=== PATIENT | female | born 1940 | race Caucasian/White ===

== ENCOUNTER 2024-02-24 19:27 | Emergency (ER) | payer OTHER ==
--- NOTE | 2024-02-24 19:58 | RAD REPORT ---
EXAM DESCRIPTION: CT - CTHCSPWOC - 02/24/2024 7:45 pm CLINICAL HISTORY: Trauma, head and neck injury. fall, head injury COMPARISON: No comparisons TECHNIQUE: Axial 5 mm thick images of the head were obtained. Axial 2 mm thick images of the cervical spine were obtained with sagittal and coronal reconstruction images generated and reviewed. All CT scans are performed using dose optimization technique as appropriate and may include automated exposure control or mA/KV adjustment according to patient size. FINDINGS: CT HEAD WITHOUT CONTRAST: No acute hemorrhage, hydrocephalus or extra-axial collection is identified.No areas of brain edema or midline shift. Age advanced cerebral atrophy. Moderate chronic small vessel ischemic changes. The paranasal sinuses and mastoids are clear.The calvarium is intact. CT CERVICAL SPINE WITHOUT CONTRAST: No fracture or subluxation.No prevertebral soft tissues swelling is identified. Reversal of the mariela l cervical lordosis. Anterolisthesis of C3 on C4, C4 on C5 and trace retrolisthesis C5 on C6 likely r elated to underlying degenerative changes. Varying degrees of neural foraminal narrowing noted. IMPRESSION: No acute intracranial or cervical spine findings.
--- NOTE | 2024-02-24 20:38 | RAD REPORT ---
EXAM DESCRIPTION: RAD - Femur Right - 02/24/2024 8:29 pm CLINICAL HISTORY: fall;Pain COMPARISON: No comparisons FINDINGS/IMPRESSION: Right hip arthroplasty. No right femur fracture identified. No hardware complic ations. .
--- NOTE | 2024-02-24 20:39 | RAD REPORT ---
EXAM DESCRIPTION: RAD - Pelvis - 02/24/2024 8:29 pm CLINICAL HISTORY: fall COMPARISON: No comparisons FINDINGS/IMPRESSION: No acute fracture. No malalignment. Intact right hip arthroplasty. Mild left ac etabular degenerative changes.
--- NOTE | 2024-02-24 20:54 | EDPHYS ---
Physician Documentation [facility] Name: Libby Bosch Age: 84 yrs Sex: Female : 1940 Arrival Date: 02/24/2024 Time: 19:27 Bed 5 Private MD: ED Physician Ander Meadows HPI: 02/23 19:56 This 84 yrs old Female presents to ER via Unassigned with complaints of fall. rn 19:56 Details of fall: The patient fell from an upright position, while walking. Onset: The rn symptoms/episode began/occurred just prior to arrival. Associated injuries: The patient sustained injury to the head. Severity of symptoms: At their worst the symptoms were mild, in the emergency department the symptoms have improved. The patient has not experienced similar symptoms in the past. Patient reports fall from standing, thinks tripped, remembers all events. No blood thinners. Reports hit back of head and had a headache initially but no longer hurts. Also reported pain to right hip initially, now pain resolved. Has no complaints currently.. Historical: - Allergies: 19:35 Morphine; cp4 19:35 PENICILLINS; cp4 - Immunization history: Last tetanus immunization: - up to date. - Infectious Disease History:: Denies. - Family history:: not pertinent. - Social history:: Smoking status: Patient denies any tobacco usage or history of. - Hospitalizations: : No recent hospitalization is reported. ROS: 19:56 Constitutional: Negative for fever, chills, and weight loss, Neck: Negative for injury, rn pain, and swelling, Cardiovascular: Negative for chest pain, palpitations, and edema, Respiratory: Negative for shortness of breath, cough, wheezing, and pleuritic chest pain, Abdomen/GI: Negative for abdominal pain, nausea, vomiting, diarrhea, and constipation, Back: Negative for injury and pain, : Negative for injury, bleeding, discharge, and swelling, MS/Extremity: Negative for injury and deformity, Skin: Negative for injury, rash, and discoloration, Neuro: Negative for headache, weakness, numbness, tingling, and seizure, Exam: 19:56 Constitutional: This is a well developed, well nourished patient who is awake, alert, rn and in no acute distress. Head/Face: Normocephalic, atraumatic. Neck: No midline cervical tenderness Chest/axilla: Normal chest wall appearance and motion. Nontender with no deformity. Cardiovascular: Regular rate and rhythm. No pulse deficits. Respiratory: No increased work of breathing, no retractions or nasal flaring. Abdomen/GI: Soft, non-tender Back: No spinal tenderness MS/ Extremity: Pulses equal, no cyanosis. Neurovascular intact. Full, normal range of motion. Equal circumference. Neuro: Awake and alert, GCS 15, oriented to person, place, and situation. Cranial nerves II-XII grossly intact. Motor strength 5/5 in all extremities. Sensory grossly intact. Vital Signs: 19:35 BP 131 / 56; Pulse 85; Resp 18; Temp 98.2; Pulse Ox 100% ; Pain 7/10; cp4 22:03 BP 133 / 61; Pulse 81; Resp 18; Temp 98.2; Pulse Ox 100% ; cp4 19:35 Pain Scale: Adult cp4 Kevil Coma Score: 19:35 Eye Response: spontaneous(4). Motor Response: obeys commands(6). Verbal Response: cp4 oriented(5). Total: 15. Trauma Score (Adult): 19:35 Eye Response: spontaneous(1); Verbal Response: oriented(1); Motor Response: obeys cp4 commands(2); Systolic BP: > 89 mm Hg(4); Respiratory Rate: 10 to 29 per min(4); Alycia Score: 15; Trauma Score: 12 MDM: 19:32 Patient medically screened. rn 20:53 Differential diagnosis: closed head injury, contusion, fracture, multiple trauma, rn sprain, strain. Data reviewed: vital signs, nurses notes, radiologic studies, CT scan, and as a result, I will discharge patient. Counseling: I had a detailed discussion with the patient and/or guardian regarding the historical points, exam findings, and any diagnostic results supporting the discharge/admit diagnosis, radiology results, the need for outpatient follow up, to return to the emergency department if symptoms worsen or persist or if there are any questions or concerns that arise at home. Special discussion: Based on the patient's history, exam and DX evaluation, there is no indication for emergent intervention or inpatient TX. It is understood by the patient/guardian that if the SXs persist or worsen they need to return immediately for re-evaluation. I discussed with the patient/guardian in detail that at this point there is no indication for admission to the hospital. It is understood, however, that if the symptoms persist or worsen the patient needs to return immediately for re-evaluation. 02/23 19:33 Order name: CT Head C Spine; Complete Time: 20:53 rn 02/23 19:33 Order name: XRAY Femur RIGHT; Complete Time: 20:53 rn 02/23 19:33 Order name: XRAY Pelvis; Complete Time: 20:53 rn Administered Medications: No medications were administered Disposition Summary: 02/24/24 20:54 Discharge Ordered Notes: Location: Home rn Problem: new rn Symptoms: have improved rn Condition: Stable rn Diagnosis - Fall on same level, unspecified rn - Unspecified injury of head, initial encounter rn Followup: rn - With: Private Physician - When: As needed - Reason: Recheck today's complaints, Re-evaluation by your physician Discharge Instructions: - Discharge Summary Sheet rn - Head Injury, Adult rn - Fall Prevention in the Home, Adult rn Forms: - Medication Reconciliation Form rn - Antibiotic pattern clerk - Prescription Opioid Use rn - Patient Portal Instructions rn - Leadership Thank You Letter rn Signatures: Dispatcher [employer] EDMS Ander Meadows MD MD rn Potter, Christina cp4 Corrections: (The following items were deleted from the chart) 19:33 19:33 Femur Right+RAD.RAD.BRZ ordered. EDMS EDMS 19:33 19:33 Pelvis+RAD.RAD.BRZ ordered. EDMS EDMS
--- NOTE | 2024-02-24 22:11 | ER ---
Nurse's Notes [facility] Name: Libby Bosch Age: 84 yrs Sex: Female : 1940 Arrival Date: 02/24/2024 Time: 19:27 Bed 5 Private MD: Diagnosis: Fall on same level, unspecified;Unspecified injury of head, initial encounter Presentation: 02/23 19:35 Chief complaint: EMS states: fall from standing. Reports head and right hip pain. cp4 19:35 Acuity: JENNIFER 4 cp4 19:35 Care prior to arrival: None. Mechanism of Injury: Fall from standing position. Trauma cp4 event details: Injury occurred in the [facility]. 19:35 Method Of Arrival: EMS: [facility] cp4 21:19 Coronavirus screen: Client denies travel out of the [place] in the last 14 days. At this cp4 time, the client does not indicate any symptoms associated with coronavirus-19. Ebola Screen: Patient negative for fever greater than or equal to 101.5 degrees Fahrenheit, and additional compatible Ebola Virus Disease symptoms Patient denies exposure to infectious person. Patient denies travel to an Ebola-affected area in the 21 days before illness onset. No symptoms or risks identified at this time. Initial Sepsis Screen: Does the patient meet any 2 criteria? No. Patient's initial sepsis screen is negative. Does the patient have a suspected source of infection? No. Patient's initial sepsis screen is negative. Risk Assessment: Do you want to hurt yourself or someone else? Patient reports no desire to harm self or others. Onset of symptoms was February 24, 2024. Trauma Activation: Not Applicable Physician: ED Physician; Name: ; Notified At: ; Arrived At: Physician: General Surgeon; Name: ; Notified At: ; Arrived At: Physician: Radiology; Name: ; Notified At: ; Arrived At: Physician: Respiratory; Name: ; Notified At: ; Arrived At: Physician: Lab; Name: ; Notified At: ; Arrived At: Historical: - Allergies: 19:35 Morphine; cp4 19:35 PENICILLINS; cp4 - Immunization history: Last tetanus immunization: - up to date. - Infectious Disease History:: Denies. - Family history:: not pertinent. - Social history:: Smoking status: Patient denies any tobacco usage or history of. - Hospitalizations: : No recent hospitalization is reported. Screenin:35 Abuse screen: Denies threats or abuse. Nutritional screening: No deficits noted. cp4 Tuberculosis screening: No symptoms or risk factors identified. 19:35 Clinical [place] Withdrawal Assessment for Alcohol, revised (CIWA-Ar):. [facility] ED cp4 Fall Risk Assessment (Adult) History of falling in the last 3 months, including since admission Yes- single mechanical fall (1 pt) Confusion or Disorientation No (0 pts) Intoxicated or Sedated No (0 pts) Impaired Gait Yes (1 pt) Mobility Assist Device Used Yes (1 pt) Altered Elimination No (0 pt) Score/Fall Risk Level 3 or more points = High Risk Oriented to surroundings, Maintained a safe environment, Assessed \T\ reinforced patient's understanding of fall precautions, Hourly rounding (assess needs \T\ fall precautionary measures) done, Used ambulatory aids as needed (educated on \T\ assisted with). Primary Survey: 19:35 NO uncontrolled hemorrhage observed. A: The client is awake and alert. The airway is cp4 patent. Breathing/Chest: Spontaneous respiratory effort, equal unlabored respirations, breath sounds clear bilaterally, regular pattern, symmetrical chest rise and fall. Circulation: No external hemorrhage present. Regular and strong central pulse, skin warm/dry/normal color. Disability Pupils are equal, round, reactive to light and accommodation. Exposure/Environment: A warming method has been applied: A warm blanket has been provided to the patient. Reassessment Alertness and Airway: Awake and alert. The airway is patent. Breathing: Spontaneous respiratory effort, equal unlabored respirations, breath sounds clear bilaterally, regular pattern with symmetrical chest rise and fall. Circulation: No external hemorrhage noted. Regular and strong central pulse, skin warm/dry/normal color. Disability: Pupils Pupils are equal, round, reactive to light and accomodation. Alert. Assessment: 19:35 General: Appears in no apparent distress. comfortable, Behavior is calm, cooperative, cp4 appropriate for age. Pain: Complains of pain in head and right hip Pain currently is 7 out of 10 on a pain scale. Neuro: Level of Consciousness is awake, alert, obeys commands, Oriented to person. EENT: No signs and/or symptoms were reported regarding the EENT system. Cardiovascular: No deficits noted. Respiratory: Airway is patent Respiratory effort is even, unlabored. GI: No signs and/or symptoms were reported involving the gastrointestinal system. : No signs and/or symptoms were reported regarding the genitourinary system. Derm: No signs and/or symptoms reported regarding the dermatologic system. Musculoskeletal: No signs and/or symptoms reported regarding the musculoskeletal system. Injury Description: pain in head and right hip. 21:20 Reassessment: No changes from previously documented assessment. cp4 21:25 Reassessment: Called to give report to nurse. Nurse busy and will call back. cp4 Vital Signs: 19:35 BP 131 / 56; Pulse 85; Resp 18; Temp 98.2; Pulse Ox 100% ; Pain 7/10; cp4 22:03 BP 133 / 61; Pulse 81; Resp 18; Temp 98.2; Pulse Ox 100% ; cp4 19:35 Pain Scale: Adult cp4 Alycia Coma Score: 19:35 Eye Response: spontaneous(4). Motor Response: obeys commands(6). Verbal Response: cp4 oriented(5). Total: 15. Trauma Score (Adult): 19:35 Eye Response: spontaneous(1); Verbal Response: oriented(1); Motor Response: obeys cp4 commands(2); Systolic BP: > 89 mm Hg(4); Respiratory Rate: 10 to 29 per min(4); Alycia Score: 15; Trauma Score: 12 ED Course: 19:32 Patient arrived in ED. rn 19:32 Ander Meadows MD is Attending Physician. rn 19:35 Bed in low position. Call light in reach. Side rails up X2. cp4 19:35 Arm band placed on right wrist. Patient placed in an exam room, on a stretcher. cp4 19:35 Provided Education on: fall. cp4 19:35 Patient maintains SpO2 saturation greater than 95% on room air. cp4 19:35 No provider procedures requiring assistance completed. Patient did not have IV access cp4 during this emergency room visit. 19:47 CT Head C Spine In Process Unspecified. EDMS 20:01 Donna Jeronimo is Primary Nurse. cp4 20:31 XRAY Femur RIGHT In Process Unspecified. EDMS 20:31 XRAY Pelvis In Process Unspecified. EDMS 21:17 Triage completed. cp4 22:10 Thermoregulation: warm blanket given to patient. cp4 Administered Medications: No medications were administered Medication: 19:35 VIS not applicable for this client. cp4 Intake: 19:35 PO: 0ml; Total: 0ml. cp4 Outcome: 20:54 Discharge ordered by . rn 22:04 Discharged to longterm. Report called to nurse cp4 22:04 Condition: stable 22:04 Discharge instructions given to EMS, Instructed on discharge instructions, follow up and referral plans. Demonstrated understanding of instructions, follow-up care, 22:10 Patient's length of stay was not longer than 2 hours. cp4 22:11 Patient left the ED. cp4 Signatures: Dispatcher [employer] EDMS Ander Meadows MD MD rn Potter, Christina cpDerrick
[2024-02-24 22:30] VITALS: TEMP 98.2; O2SAT 100
[2024-02-24 22:32] VITALS: BP 133/61
== END 2024-02-24 22:11 | disposition home or self-care (01) ==
LOC: ER 19:27
DX: S09.90XA Unspecified injury of head, initial encounter (principal); W18.30XA Fall on same level, unspecified, initial encounter; M25.551 Pain in right hip
CPT/HCPCS: 70450; 72125; 72170; 99283

== ENCOUNTER 2024-04-24 16:20 | Inpatient (IN) | payer OTHER ==
--- NOTE | 2024-04-24 17:20 | RAD REPORT ---
EXAMINATION: ONE VIEW CHEST XR CLINICAL INDICATION: FEVER TECHNIQUE: Frontal chest projection is submitted. Examination is limited by patient positioning and t echnique. COMPARISON: No prior exam. FINDINGS: [place] 2-3 cm density is seen in the right midlung. The lungs are otherwise grossly clear. The heart is normal in size. No displaced fractures identified. IMPRESSION: 2-3 cm oblong density in the right midlung. CT chest would be recommended for further evaluation.
[2024-04-24] MEDS ORDERED: NA CHLORIDE 0.9% 100 ML ONE (18:29)
[2024-04-24] MEDS ORDERED: NA CHLORIDE 0.9% 1,000 ML ONE ×2 (18:29→22:48)
[2024-04-24] MEDS ORDERED: CEFEPIME 2 GM VIAL ONE (18:29)
[2024-04-24 18:32] LABS: Absolute Basophils 0.1 K/uL (0-0.5); Absolute Lymphocytes (CBC) 0.5 K/uL (0.7-4.9); Absolute Monocytes 1.1 K/uL (0.1-1.3); Absolute Neutrophil 17.2 K/uL (1.8-8.0); Basophils % 0.4 % (0-1.3); Eosinophils % 0.1 % (0-4.4); Hematocrit 29.8 % (36.0-45.0); Lymphocytes % 2.8 % (15.3-44.8); MCH 28.8 pg (27.0-35.0); MCHC 33.6 g/dL (32.0-36.0); MCV 85.7 fL (80-100); MPV 7.3 fL (7.6-11.3); Monocytes % 5.9 % (3.3-12.3); Neutrophils % 90.8 % (41.7-73.7); Platelets 336 thou/uL (152-406); RBC Red Blood Cell Count 3.48 M/uL (3.86-4.86); Red Cell Distribution Width 15.1 % (12.1-15.2)
[2024-04-24 18:41] LABS: PT Prothrombin Time 11.7 SECONDS (9.4-12.5); PTT, Activated Partial Thromb 29.7 SECONDS (24.3-36.9); Protime INR 1.05
[2024-04-24 18:48] LABS: Albumin 3.1 g/dL (3.4-5.0); Albumin/Globulin Ratio 0.8 (1.1-1.8); Anion Gap 10.6 mEq/L (5.0-15.0); Bilirubin Total 0.5 mg/dL (0.2-1.0); Globulin 3.9 g/dL (2.3-3.5); Potassium 3.6 mEq/L (3.5-5.1)
[2024-04-24 19:17] LABS: Specific Gravity 1.013 (1.005-1.030); Sqamous Epithelial <5 /HPF (None Seen); Urine Bacteria <20 /HPF (<20); Urine Bilirubin NEGATIVE (Negative); Urine Blood 1+ (Negative); Urine Clarity Extremely Turbid (Clear); Urine Color Yellow (Yellow); Urine Crystals Unidentified Few /HPF (None Seen); Urine Culture Reflex Order REFLEXED; Urine Glucose NEGATIVE (Negative); Urine Ketones NEGATIVE (Negative); Urine Microscopic Reflex YN ORDER UMIC; Urine Nitrite 2+ (Negative); Urine Protein 1+ (Negative); Urine Urobilinogen Normal (Normal); Urine WBC >50 /HPF (<5); Urine WBC Clump Occasional /HPF (None Seen); Urine Yeast (Budding) Few /HPF (None Seen); Urine pH 5.5 (5.0-7.0)
--- NOTE | 2024-04-24 19:35 | RAD REPORT ---
EXAM: CT brain without contrast HISTORY: HEADACHE COMPARISON: None TECHNIQUE: Multiple contiguous axial images were obtained and a CT of the brain without contrast. Sag ittal and coronal reformats were performed. One or more of the following dose reduction techniques were used: Automated exposure control, adjust ment of the mA and/or kV according to patient size, and/or iterative reconstruction. FINDINGS: Examination is limited due to motion artifact. No evidence of hydrocephalus, intracranial hemorrhage, or extra-axial fluid collection. Moderate brain atrophy with moderate periventricular and deep white matter chronic microvascular isc hemic changes present. No evidence of midline shift or areas of brain edema. The calvarium is intact. The visualized paranasal sinuses and mastoid air cells are essentially clear . IMPRESSION: No evidence of acute intracranial abnormality. Motion degradation is present, limiting quality of the study.
--- NOTE | 2024-04-24 19:40 | RAD REPORT ---
EXAM: CT CHEST, ABDOMEN AND PELVIS WITH CONTRAST CLINICAL INDICATION: abd pain, abnormal cxr TECHNIQUE: CT chest, abdomen and pelvis was performed, following the administration of contrast, as p er department protocol. Axial, sagittal and coronal reconstructions were obtained. One or more of the following dose reduction techniques were used: Automated exposure control, adjustment of the mA a nd/or kV according to patient size, and/or iterative reconstruction. Unless otherwise specified, incidental findings do not require dedicated imaging follow-up. COMPARISON: No prior exam. FINDINGS: LUNGS: Mild scarring is present in the right upper lobe posteriorly. No focal consolidation evident. Small hiatal hernia. PLEURA: Small amount of fluid is present loculated in the right fissure. MEDIASTINUM AND LYMPH NODES: No mediastinal mass or fluid collection. Normal size mediastinal, hilar, and axillary lymph nodes. OSSEOUS STRUCTURES AND CHEST WALL: Intact. LIVER: Normal in size and contour. No focal lesion or biliary dilatation. Grossly unremarkable gallbl adder. PANCREAS: No mass, ductal dilation, or jane-pancreatic fluid. SPLEEN: Normal size. No focal lesion. ADRENALS: Normal; no mass. KIDNEYS: Normal size and contour. No hydronephrosis. Enhancement of the uroepithelium bilaterally not ed likely indicating ascending urinary tract infection. URINARY BLADDER: Normal contour. GASTROINTESTINAL TRACT: No bowel obstruction, free air, significant free fluid or abscess. There is moderate diverticulosis coli of the sigmoid colon without diverticulitis. APPENDIX: Normal appendix. LYMPH NODES: No lymphadenopathy. MUSCULOSKELETAL: Right total hip arthroplasty. OTHER: IMPRESSION: Enhancing uroepithelium is noted involving both ureters and both renal pelvis compatible with ascendi ng urinary tract infection. Recent chest radiograph finding is likely a small amount of loculated right pleural fluid in the fiss ure.
[2024-04-24 19:49] LABS: Blood Morphology Comment NOT SEEN (NOT SEEN); Platelet Estimate ADEQ; White Blood Cell Scan OK (OK)
--- NOTE | 2024-04-24 19:56 | EDPHYS ---
Physician Documentation [facility] Name: Libby Bosch Age: 84 yrs Sex: Female : 1940 Arrival Date: 04/24/2024 Time: 16:20 Bed 20 Private MD: ED Physician Umang Adorno HPI: 04/24 18:25 This 84 yrs old Female presents to ER via EMS with complaints of Abdominal Pain, Fever, rt Headache. 18:25 History limited due to patient with advanced dementia, history was obtained per EMS. rt Patient presents to the ED with headache, abdominal pain starting today. The patient reportedly had a fever up to 103. EMS noted that she was tachycardic to the 110s. Denies other acute complaints at this time, symptoms are moderate in severity, no other aggravating or alleviating factors.. Historical: - Allergies: 17:06 Morphine; ss 17:06 PENICILLINS; ss - PMHx: 17:06 Alzheimer's disease; GERD; Hypertensive disorder; ss - Immunization history:: Adult Immunizations up to date. - Infectious Disease History:: Denies. - Family history:: not pertinent. - Social history:: Smoking status: Patient denies any tobacco usage or history of. ROS: 18:25 Unable to obtain ROS due to baseline dementia, rt Exam: 18:25 Constitutional: This is a well developed, well nourished patient who is awake, alert, rt and in no acute distress. Head/Face: Normocephalic, atraumatic. Chest/axilla: Normal chest wall appearance and motion. Nontender with no deformity. No lesions are appreciated. Cardiovascular: Regular rate and rhythm with a normal S1 and S2. No gallops, murmurs, or rubs. Normal PMI, no JVD. No pulse deficits. Respiratory: Lungs have equal breath sounds bilaterally, clear to auscultation and percussion. No rales, rhonchi or wheezes noted. No increased work of breathing, no retractions or nasal flaring. Abdomen/GI: Soft, non-tender, with normal bowel sounds. No distension or tympany. No guarding or rebound. No evidence of tenderness throughout. Skin: Warm, dry with normal turgor. Normal color with no rashes, no lesions, and no evidence of cellulitis. MS/ Extremity: Pulses equal, no cyanosis. Neurovascular intact. Full, normal range of motion. 18:25 ECG was reviewed by the Attending Physician. Vital Signs: 18:00 BP 129 / 70; Pulse 93; Resp 18; Pulse Ox 97% ; me1 19:00 BP 127 / 90; Pulse 103; Resp 19; Pulse Ox 98% ; me1 20:06 Temp 102.6(A); me1 20:06 BP 148 / 90; Pulse 119; Resp 24; Pulse Ox 92% ; me1 21:00 BP 123 / 83; Pulse 123; Resp 24; Pulse Ox 93% ; me1 22:00 BP 117 / 54; Pulse 95; Resp 13; Temp 102.8; Pulse Ox 91% ; me1 MDM: 16:37 Medical Screening Exam initiated rt 19:56 Differential diagnosis: UTI, diverticulitis, cranial hemorrhage, electrolyte rt disturbance, sepsis. Data reviewed: vital signs, nurses notes, lab test result(s), EKG, radiologic studies. Consideration of Admission/Observation Patient was admitted/placed on observation. Management of patient was discussed with the following: Hospitalist: Agrees to admit. I considered the following discharge prescriptions or medication management in the emergency department Medications were administered in the Emergency Department. See MAR. Independent interpretation of the following test(s) in the Emergency Department CT Scan: My interpretation is No bowel obstructions and interpretation of CT scan images. Care significantly affected by the following chronic conditions: Hypertension. Counseling: I had a detailed discussion with the patient and/or guardian regarding the historical points, exam findings, and any diagnostic results supporting the discharge/admit diagnosis, lab results, radiology results, the need for further work-up and treatment in the hospital. Response to treatment: the patient's symptoms have mildly improved after treatment. 04/24 16:38 Order name: Blood Culture Adult (2) rt 04/24 16:38 Order name: CBC with Diff rt 04/24 16:38 Order name: CMP; Complete Time: 18:51 rt 04/24 16:38 Order name: Lactate w/ 2H reflex if indic.; Complete Time: 18:51 rt 04/24 16:38 Order name: Protime (+inr); Complete Time: 18:51 rt 04/24 16:38 Order name: Ptt, Activated; Complete Time: 18:51 rt 04/24 16:38 Order name: Urinalysis w/ reflexes; Complete Time: 19:18 rt 04/24 19:20 Order name: Urine Culture EDMS 04/24 19:49 Order name: CBC Smear Scan EDMS 04/24 20:29 Order name: Ghost Lactate-NO COLLECT Timer EDMS 04/24 20:43 Order name: Urinalysis w/ reflexes EDMS 04/24 20:43 Order name: CBC with Automated Diff EDMS 04/24 20:43 Order name: CBC with Automated Diff EDMS 04/24 20:43 Order name: Comprehensive Metabolic Panel EDMS 04/24 20:43 Order name: Comprehensive Metabolic Panel EDMS 04/24 22:36 Order name: Lactate w/ 2H reflex if indic. me1 04/24 23:07 Order name: Lactate w/ 2H reflex if indic. EDMS 04/25 01:07 Order name: Ghost Lactate-NO COLLECT Timer EDMS 04/25 05:38 Order name: Lactate Sepsis 2 HR Follow-up EDMS 04/25 12:50 Order name: Gram Stain--Aerobic Bottle EDNJ 04/25 12:50 Order name: Gram Stain--Anaerobic Bottle EDMS 04/25 12:53 Order name: Gram Stain--Aerobic Bottle EDMS 04/25 12:53 Order name: Gram Stain--Anaerobic Bottle EDMS 04/24 16:38 Order name: Chest Single View XRAY; Complete Time: 18:51 rt 04/24 16:38 Order name: CT Head Brain wo Cont; Complete Time: 19:39 rt 04/24 18:52 Order name: CT Chest, Abdomen, Pelvis - W/Contrast; Complete Time: 19:41 rt 04/24 16:38 Order name: EKG; Complete Time: 16:39 rt 04/24 16:38 Order name: Accucheck; Complete Time: 22:48 rt 04/24 16:38 Order name: Cardiac monitoring; Complete Time: 18:24 rt 04/24 16:38 Order name: EKG - Nurse/Tech; Complete Time: 18:24 rt 04/24 16:38 Order name: IV Saline Lock - Large Bore; Complete Time: 17:58 rt 04/24 16:38 Order name: Labs collected and sent; Complete Time: 17:58 rt 04/24 16:38 Order name: O2 Per Protocol; Complete Time: 17:58 rt 04/24 16:38 Order name: O2 Sat Monitoring; Complete Time: 17:58 rt 04/24 16:38 Order name: Vital Signs; Complete Time: 17:59 rt EC:25 Rate is 94 beats/min. Rhythm is regular, Normal Sinus Rhythm with No ectopy. QRS [place] rt is Normal. RI interval is normal. QRS interval is normal. QT interval is normal. No Q waves. Clinical impression: NSR w/ Non-specific ST/T Changes. Administered Medications: 18:34 Drug: NS 0.9% IV 1000 ml IV at 1 bolus Per protocol; to be given as a bolus over 60 me1 minutes Route: IV; Rate: 1 bolus; Site: left antecubital; 20:00 Follow up: Response: No adverse reaction; IV Status: Completed infusion; IV Intake: me1 1000ml 18:34 Drug: Cefepime IVPB 2 grams IVPB at 200 ml/hr once over 30 mins; (mix in NS 100 mL) me1 Route: IVPB; Rate: 200 ml/hr; Infused Over: 30 mins; Site: left antecubital; 19:49 Follow up: Response: No adverse reaction; IV Status: Completed infusion; IV Intake: me1 100ml 20:10 Drug: Acetaminophen PO 1000 mg PO once Route: PO; me1 21:00 Follow up: Response: No adverse reaction; Temperature is unchanged me1 Disposition Summary: 04/24/24 19:56 Hospitalization Ordered Notes: Hospitalization Status: Inpatient Admission rt Provider: Christopher Shepherd rt Condition: Stable rt Problem: new rt Symptoms: are unchanged rt Bed/Room Type: Standard rt Location: Telemetry/MedSurg (Inpatient)(04/25/24 13:19) Room Assignment: [facility](04/25/24 13:19) Diagnosis - UTI/ Urinary tract infection, site not specified rt - Severe sepsis without septic shock rt Forms: - Medication Reconciliation Form rt - SBAR form rt - Leadership Thank You Letter rt Critical care time excluding procedures: 19:56 Critical care time: Bedside Care: 30 minutes, Consultation: 5 minutes. Total time: 35 rt minutes Signatures: Dispatcher [employer] Dilcia Rhodes RN RN ss Garcia, Cindy, RN RN Hellen Mueller Umang Adorno MD MD rt Joya Olivas RN RN me1 Corrections: (The following items were deleted from the chart) 16:39 16:39 BLOOD CULTURE*+BA.LAB.BRZ ordered. EDMS EDMS 16:39 16:39 CBC+H.LAB.BRZ ordered. EDMS EDMS 16:39 16:39 LACTATE+C.LAB.BRZ ordered. EDMS EDMS 16:39 16:39 PROTIME (+INR)+COAG.LAB.BRZ ordered. EDMS EDMS 16:39 16:39 PTT, ACTIVATED+COAG.LAB.BRZ ordered. EDMS EDMS 16:39 16:39 Urinalysis+U.LAB.BRZ ordered. EDMS EDMS 16:39 16:39 Abdomen Pelvis W Con+CT.RAD.BRZ ordered. EDMS EDMS 17:59 16:39 COMPREHENSIVE METABOLIC PANEL+C.LAB.BRZ ordered. EDMS EDMS 21:34 19:56 Telemetry/MedSurg (Inpatient) rt cg 21:34 19:56 rt cg 04/25 13:19 04/24 21:34 [facility] ER HOLD cg eb 04/25 13:19 04/24 21:34 ERHOLD- cg eb
--- NOTE | 2024-04-24 19:56 | ER ---
Nurse's Notes [facility] Name: Libby Bosch Age: 84 yrs Sex: Female : 1940 Arrival Date: 04/24/2024 Time: 16:20 Bed 20 Private MD: Diagnosis: UTI/ Urinary tract infection, site not specified;Severe sepsis without septic shock Presentation: 04/24 17:02 Chief complaint: EMS states: CROWDER, abd pain and fever that began today. TMAX 103.2. ss Tylenol given today \T\1400. Coronavirus screen: Client presents with at least one sign or symptom that may indicate coronavirus-19. Ebola Screen: Patient denies exposure to infectious person. Patient denies travel to an Ebola-affected area in the 21 days before illness onset. Initial Sepsis Screen: Does the patient have a suspected source of infection? No. Patient's initial sepsis screen is negative. Risk Assessment: Do you want to hurt yourself or someone else? Patient reports no desire to harm self or others. Onset of symptoms was April 24, 2024. 17:02 Method Of Arrival: EMS: [facility] ss 17:02 Acuity: JENNIFER 3 ss 22:25 Initial Sepsis Screen: Does the patient meet any 2 criteria? HR > 90 bpm. No. Patient's me1 initial sepsis screen is negative. Historical: - Allergies: 17:06 Morphine; ss 17:06 PENICILLINS; ss - PMHx: 17:06 Alzheimer's disease; GERD; Hypertensive disorder; ss - Immunization history:: Adult Immunizations up to date. - Infectious Disease History:: Denies. - Family history:: not pertinent. - Social history:: Smoking status: Patient denies any tobacco usage or history of. Screenin:[address] [facility] ED Fall Risk Assessment (Adult) History of falling in the last 3 months, me1 including since admission No falls in past 3 months (0 pts) Confusion or Disorientation No (0 pts) Intoxicated or Sedated No (0 pts) Impaired Gait Yes (1 pt) Mobility Assist Device Used Yes (1 pt) Altered Elimination Yes (1 pt) Score/Fall Risk Level 3 or more points = High Risk Maintained a safe environment, Hourly rounding (assess needs \T\ fall precautionary measures) done, Used ambulatory aids as needed (educated on \T\ assisted with). Abuse screen: Denies threats or abuse. Nutritional screening: No deficits noted. Tuberculosis screening: No symptoms or risk factors identified. Assessment: 17:00 General: Appears uncomfortable, ill, well groomed, well developed, well nourished, me1 Behavior is calm, cooperative, appropriate for age, Reports CROWDER, abd pain and fever that began today. Pain: Complains of pain in head and abdomen Pain does not radiate. Pain currently is 3 out of 10 on a pain scale. Quality of pain is described as aching, Pain began gradually, Is continuous. Neuro: Level of Consciousness is awake, alert, obeys commands, Oriented to person, place. Cardiovascular: Patient's skin is warm and dry. Respiratory: Airway is patent Respiratory effort is even, unlabored, Respiratory pattern is regular, symmetrical. GI: Abdomen is flat, Bowel sounds present X 4 quads. Abd is soft X 4 quads. : No signs and/or symptoms were reported regarding the genitourinary system. EENT: No signs and/or symptoms were reported regarding the EENT system. Derm: Skin is intact, is healthy with good turgor, Skin is pink, warm \T\ dry. Skin temperature is hot. Musculoskeletal: No signs and/or symptoms reported regarding the musculoskeletal system. 04/25 13:32 General: Report faxed, receipt confirmed by Roxanne.. me1 Vital Signs: 04/24 18:00 BP 129 / 70; Pulse 93; Resp 18; Pulse Ox 97% ; me1 19:00 BP 127 / 90; Pulse 103; Resp 19; Pulse Ox 98% ; me1 20:06 Temp 102.6(A); me1 20:06 BP 148 / 90; Pulse 119; Resp 24; Pulse Ox 92% ; me1 21:00 BP 123 / 83; Pulse 123; Resp 24; Pulse Ox 93% ; me1 22:00 BP 117 / 54; Pulse 95; Resp 13; Temp 102.8; Pulse Ox 91% ; me1 ED Course: 16:37 Patient arrived in ED. rt 16:37 Umang Adorno MD is Attending Physician. rt 17:00 Patient has correct armband on for positive identification. Bed in low position. Call me1 light in reach. Side rails up X2. Provided Education on: POC. Verbalized understanding.. 17:00 Client placed on continuous cardiac and pulse oximetry monitoring. NIBP monitoring me1 applied. web press operator assistant on. Pulse ox on. NIBP on. 17:00 No provider procedures requiring assistance completed. me1 17:06 Triage completed. ss 17:06 Arm band placed on right wrist. ss 17:18 Chest Single View XRAY In Process Unspecified. EDMS 17:33 Joya Olivas, RN is Primary Nurse. me1 17:54 Initial lab(s) drawn, by me, sent to lab. First set of blood cultures drawn by me. me1 17:58 Inserted saline lock: 22 gauge in left antecubital area, using aseptic technique. me1 17:59 CBC with Diff Sent. me1 17:59 Lactate w/ 2H reflex if indic. Sent. me1 17:59 Protime (+inr) Sent. me1 17:59 Ptt, Activated Sent. me1 18:24 EKG done, by ED staff, reviewed by Umang Adorno MD. me1 18:24 Second set of blood cultures drawn by me. me1 19:23 CT Head Brain wo Cont In Process Unspecified. EDMS 19:25 CT Chest, Abdomen, Pelvis - W/Contrast In Process Unspecified. EDMS 19:56 Christopher Shepherd MD is Hospitalizing Provider. rt 21:45 Patient admitted, IV remains in place. me1 22:38 Lactate w/ 2H reflex if indic. Sent. me1 22:48 Urine Culture Sent. mt1 1018 08:39 Primary Nurse role handed off by Joya Olivas, RN eb 14:14 Joya Olivas, RN is Primary Nurse. me1 Administered Medications: 04/24 18:34 Drug: NS 0.9% IV 1000 ml IV at 1 bolus Per protocol; to be given as a bolus over 60 me1 minutes Route: IV; Rate: 1 bolus; Site: left antecubital; 20:00 Follow up: Response: No adverse reaction; IV Status: Completed infusion; IV Intake: me1 1000ml 18:34 Drug: Cefepime IVPB 2 grams IVPB at 200 ml/hr once over 30 mins; (mix in NS 100 mL) me1 Route: IVPB; Rate: 200 ml/hr; Infused Over: 30 mins; Site: left antecubital; 19:49 Follow up: Response: No adverse reaction; IV Status: Completed infusion; IV Intake: me1 100ml 20:10 Drug: Acetaminophen PO 1000 mg PO once Route: PO; me1 21:00 Follow up: Response: No adverse reaction; Temperature is unchanged me1 Medication: 17:00 VIS not applicable for this client. me1 Intake: 19:49 IV: 100ml; Total: 100ml. me1 20:00 IV: 1000ml; Total: 1100ml. me1 Output: 04/25 00:18 Urine: 600ml (Voided); Total: 600ml. me1 Outcome: 04/24 19:56 Decision to Hospitalize by Provider. rt 21:45 Admitted to ER Hold. Please see [facility] for further documentation. me1 21:45 Condition: stable 21:45 Instructed on the need for admit, 04/25 14:32 Patient left the ED. ap3 Signatures: Dispatcher [employer] EDMS Dilcia Mosley RN RN ss Ryann Frank RN RN ap3 Hellen Mueller Ryan, MD MD rt Joya Olivas RN RN mt1 Corrections: (The following items were deleted from the chart) 04/24 17:59 17:59 COMPREHENSIVE METABOLIC PANEL+C.LAB.BRZ drawn and sent. mt1 EDWI 22:19 17:02 Chief complaint: EMS states: CROWDER, abd pain and fever that began today. TMAX 103.2. me1 Tylenol given today \T\1400 ss 22:25 18:24 Client placed on continuous cardiac and pulse oximetry monitoring. NIBP me1 monitoring applied. web press operator assistant on. Pulse ox on. NIBP on. me1 22:47 17:00 Neuro: Level of Consciousness is awake, alert, obeys commands, Oriented to me1 person, place, time, situation, Appropriate for age me1
[2024-04-24] MEDS ORDERED: ACETAMINOPHEN 500 MG TAB ONE (20:08)
--- NOTE | 2024-04-24 20:38 | P.HP ---
Certification for Inpatient Patient admitted to: Inpatient With expected LOS: >2 Midnights Practitioner: I am a practitioner with admitting privileges, knowledge of patient current condition, hospital course, and medical plan of care. Services: Services provided to patient in accordance with Admission requirements found in Title 42 Section 412.3 of the Code of Federal Regulations Patient History Date of Service: 04/24/24 Reason for admission: Fever/ Abdominal pain History of Present Illness: 84 yrs old Female who is a custodial resident with past medical history of Alzheimer's dementia, GERD, hypertension presents to ER with complaints of Abdominal Pain, Fever, Headache associated with chills. Patient is presently demented hence most of the history is obtained from family member at the bedside. Patient presents to the ED with headache, abdominal pain starting today. The patient reportedly had a fever up to 103. EMS noted that she was tachycardic to the 110s. Denies other acute complaints at this time, symptoms are moderate in severity, no other aggravating or alleviating factors.. Patient was assessed in the ER and was found to have lactic acidosis and UTI with possible sepsis and was admitted for further management Allergies morphine Allergy (Verified 04/24/24 21:45) Hives/Rash Penicillins Allergy (Verified 04/24/24 21:45) Itching/Hives/Rash - Past Medical/Surgical History Past Medical History: Reviewed- Non-Contributory -: Dementia Past Surgical History: Reviewed- Non-Contributory - Family History Family History: Reviewed- Non-Contributory - Social History Smoking Status: Never smoker Review of Systems is unable to be obtained Physical Examination - Vital Signs Temperature: 100.2 F Blood Pressure: 136/72 Pulse: 98 Respirations: 18 Pulse Ox (%): 94 - Physical Exam General: Alert, Oriented x1, Demented, Moderate distress HEENT: Atraumatic, Normocephalic Neck: Supple, No Thyromegaly Respiratory: Clear to auscultation bilaterally, Normal air movement Cardiovascular: Normal pulses, Normal S1 S2, Other (Tachycardia ) Capillary refill: <2 Seconds Gastrointestinal: Soft and benign, W/out hepatosplenomegaly Musculoskeletal: No clubbing, No swelling Integumentary: No rashes Neurological: Other (Lethargic , Dementia) Lymphatics: No axilla or inguinal lymphadenopathy - Studies Laboratory Data (last 24 hrs) 04/24/24 04/24/24 04/24/24 17:54 17:54 17:54 WBC 18.90 H Hgb 10.0 L Hct 29.8 L Plt Count 336 PT 11.7 INR 1.05 APTT 29.7 Sodium 132 L Potassium 3.6 BUN 14 Creatinine 0.87 Glucose 192 H Total Bilirubin 0.5 AST 17 ALT 16 Alkaline Phosphatase 147 H Assessment and Plan - Plan Sepsis due to UTI Lactic acidosis Started on IV hydration IV antibiotic Obtain cultures Change antibiotic as per sensitivity CT abdomen pelvis noted Consistent with pyelonephritis Monitor lactic acid levels Hyponatremia IV hydration Electrolytes monitor and replace accordingly Advanced dementia Supportive management Hypertension Continue home medications and titrate as needed GI/DVT prophylaxis Advanced directive full Code Discharge Plan: Longterm Plan to discharge in: 48 Hours - Advance Directives Does patient have a Living Will: No Does patient have a Durable POA for Healthcare: No - Code Status/Comfort Care Code Status: Full Code Time Spent Managing Pts Care (In Minutes): 48
[2024-04-24] MEDS: NA CHLORIDE 0.9% 1,000 ML IV SCH (21:00)
[2024-04-24] MEDS: ONDANSETRON 4 MG/2 ML VIAL IV PRN (21:05)
[2024-04-24 22:45] VITALS: BMI 22.8
[2024-04-24] MEDS ORDERED: ACETAMINOPHEN 325 MG TABLET ONE (23:37)
[2024-04-24] MEDS: ACETAMINOPHEN 325 MG TABLET PO PRN (23:40)
[2024-04-25] MEDS ORDERED: NA CHLORIDE 0.9% 100 ML ONE ×2 (00:48→08:19)
[2024-04-25] MEDS ORDERED: PIPERACIL/TAZO 3.375 GM VIAL IV ONE ×2 (00:48→08:19)
[2024-04-25] MEDS: PIPER TAZO 3.375 GM in NA CHLORIDE 0.9% 100 ML IV SCH (00:57)
[2024-04-25] MEDS ORDERED: NA CHLORIDE 0.9% 1,000 ML ONE (03:10)
[2024-04-25 05:20] LABS: Absolute Basophils 0.1 K/uL (0-0.5); Absolute Lymphocytes (CBC) 1.4 K/uL (0.7-4.9); Absolute Neutrophil 16.3 K/uL (1.8-8.0); Basophils % 0.3 % (0-1.3); Eosinophils % 0.1 % (0-4.4); Hematocrit 26.7 % (36.0-45.0); Hemoglobin 8.6 g/dL (12.0-15.0); MCH 27.9 pg (27.0-35.0); MCHC 32.2 g/dL (32.0-36.0); MCV 86.6 fL (80-100); MPV 7.2 fL (7.6-11.3); Monocytes % 9.9 % (3.3-12.3); Neutrophils % 82.7 % (41.7-73.7); Platelets 276 thou/uL (152-406); RBC Red Blood Cell Count 3.08 M/uL (3.86-4.86); Red Cell Distribution Width 14.8 % (12.1-15.2)
[2024-04-25 05:39] LABS: Albumin 2.4 g/dL (3.4-5.0); Albumin/Globulin Ratio 0.7 (1.1-1.8); Anion Gap 7.9 mEq/L (5.0-15.0); Bilirubin Total 0.5 mg/dL (0.2-1.0); Globulin 3.5 g/dL (2.3-3.5); Potassium 3.9 mEq/L (3.5-5.1); Protein, Total 5.9 g/dL (6.4-8.2)
[2024-04-25] MEDS ORDERED: ENOXAPARIN 40 MG/0.4 ML SQ ONE (08:19)
[2024-04-25] MEDS: ENOXAPARIN 40 MG/0.4 ML SQ SCH (09:00)
--- NOTE | 2024-04-25 15:54 | P.PN ---
Subjective Date of Service: 04/25/24 Chief Complaint: Fever/ Abdominal pain Patient stated she feels much better today. She is sitting up in bed and eating. She denies loss of appetite. Physical Examination - Vital Signs Temperature: 98.4 F Blood Pressure: 132/64 Pulse: 61 Respirations: 16 Pulse Ox (%): 100 - Studies Laboratory Data (last 24 hrs) 04/24/24 04/24/24 04/24/24 17:54 17:54 17:54 WBC 18.90 H Hgb 10.0 L Hct 29.8 L Plt Count 336 PT 11.7 INR 1.05 APTT 29.7 Sodium 132 L Potassium 3.6 BUN 14 Creatinine 0.87 Glucose 192 H Total Bilirubin 0.5 AST 17 ALT 16 Alkaline Phosphatase 147 H Assessment And Plan - Plan Physical examination General: Alert and oriented x2, NAD, HEENT: Conjunctiva not pale, anicteric sclera Neck: Supple, no elevated JVD Heart: Heart sounds 1 and 2 normal, regular rhythm, normal rate, no pedal edema Lungs: Clear to auscultation bilaterally, adequate breath sounds bilaterally, no rhonchi or crackles. Abdomen: Soft, nondistended, nontender, normal bowel sounds. Extremities: No tenderness, no deformity Skin: Normal skin turgor, no rash, no nodules or ulcers. Neuro: No focal motor deficit. Normal speech. Psychiatry: Normal mood, no agitation. Assessment and plan Sepsis due to UTI Acute pyelonephritis Lactic acidosis Clinically improving Continue IV Zosyn Follow urine culture and blood culture Continue IV hydration Lactic acidosis resolved. Hyponatremia Improving slowly Continue IV NS Monitor BMP and replace electrolytes as needed. Advanced dementia Supportive management Monitor for agitation. DVT prophylaxis: Lovenox Advanced directive: full Code
[2024-04-25] MEDS: MELATONIN 5 MG TABLET PO PRN (21:00)
[2024-04-25] MEDS: clonazePAM 0.5 MG TAB PO PRN (23:52)
[2024-04-26 09:17] LABS: Absolute Basophils 0.1 K/uL (0-0.5); Absolute Eosinophils 0.1 K/uL (0-0.5); Absolute Lymphocytes (CBC) 0.9 K/uL (0.7-4.9); Absolute Monocytes 1.3 K/uL (0.1-1.3); Absolute Neutrophil 8.7 K/uL (1.8-8.0); Basophils % 0.5 % (0-1.3); Eosinophils % 0.7 % (0-4.4); Hematocrit 30.3 % (36.0-45.0); Lymphocytes % 7.8 % (15.3-44.8); MCH 28.1 pg (27.0-35.0); MCHC 32.9 g/dL (32.0-36.0); MCV 85.6 fL (80-100); MPV 7.2 fL (7.6-11.3); Monocytes % 11.8 % (3.3-12.3); Neutrophils % 79.2 % (41.7-73.7); Nucleated Red Blood Cells % 0.1 % (0-0); Platelets 310 thou/uL (152-406); RBC Red Blood Cell Count 3.54 M/uL (3.86-4.86); Red Cell Distribution Width 14.9 % (12.1-15.2)
--- NOTE | 2024-04-26 13:39 | P.PN ---
Subjective Date of Service: 04/26/24 Chief Complaint: Fever/ Abdominal pain Patient denies any complaint. No issues last night, no reported agitation. Daughter reports at baseline patient need assistance with transfers. Physical Examination - Vital Signs Temperature: 97.2 F Blood Pressure: 147/78 Pulse: 73 Respirations: 17 Pulse Ox (%): 91 - Studies Microbiology Data (last 24 hrs): 04/24/24 17:54 Blood - Blood Blood Culture Gram Stain - Final 04/24/24 17:54 Blood - Blood Gram Stain - Final 04/24/24 18:03 Blood - Blood Blood Culture Gram Stain - Final 04/24/24 18:03 Blood - Blood Gram Stain - Final Assessment And Plan - Plan Physical examination General: Alert and oriented x2, NAD, HEENT: Conjunctiva not pale, anicteric sclera Neck: Supple, no elevated JVD Heart: Heart sounds 1 and 2 normal, regular rhythm, normal rate, no pedal edema Lungs: Clear to auscultation bilaterally, adequate breath sounds bilaterally, no rhonchi or crackles. Abdomen: Soft, nondistended, nontender, normal bowel sounds. Extremities: No tenderness, no deformity Skin: Normal skin turgor, no rash. Neuro: No focal motor deficit. Normal speech. Psychiatry: Normal mood, no agitation. Assessment and plan Sepsis due to UTI Acute pyelonephritis Lactic acidosis Clinically improving Blood cultures growing gram-negative rods. Urine culture shows gram-negative rods. Leukocytosis significantly improved and almost resolved. Continue IV Zosyn Follow urine culture and blood cultures Continue IV hydration Lactic acidosis resolved. PT consult Hyponatremia Resolved Continue IV NS Monitor BMP and replace electrolytes as needed. Advanced dementia Supportive management Monitor for agitation. DVT prophylaxis: Lovenox Advanced directive: full Code
[2024-04-26] MEDS ORDERED: MELATONIN PO PRN (20:40)
[2024-04-26] MEDS ORDERED: PYRIDOXINE PO PRN (20:40)
[2024-04-26] MEDS ORDERED: LOPERAMIDE HCL 2 MG CAPSULE PO PRN (20:40)
[2024-04-26] MEDS: MEMANTINE HCL 14 MG PO SCH (21:00)
[2024-04-26] MEDS: CODEINE 30MG/APAP 300MG TAB PO SCH (21:00)
[2024-04-26] MEDS: METOPROLOL TARTRATE 5 MG/5 ML INJ IV STA (21:24)
[2024-04-26] MEDS: DONEPEZIL HCL 5 MG TAB PO SCH (21:33)
[2024-04-26] MEDS: DICYCLOMINE HCL 10 MG CAP PO SCH (21:34)
[2024-04-26] MEDS: clonazePAM 0.5 MG TAB PO PRN (21:38)
[2024-04-27] MEDS: BACLOFEN 10 MG TAB PO PRN (01:24)
[2024-04-27] MEDS: PANTOPRAZOLE 40MG TABLET PO SCH (06:30)
[2024-04-27 07:02] LABS: Absolute Basophils 0.1 K/uL (0-0.5); Absolute Eosinophils 0.1 K/uL (0-0.5); Absolute Lymphocytes (CBC) 1.2 K/uL (0.7-4.9); Absolute Monocytes 1.5 K/uL (0.1-1.3); Eosinophils % 1.4 % (0-4.4); Hematocrit 29.3 % (36.0-45.0); Hemoglobin 9.7 g/dL (12.0-15.0); Lymphocytes % 13.2 % (15.3-44.8); MCH 28.3 pg (27.0-35.0); MCHC 33.2 g/dL (32.0-36.0); MCV 85.4 fL (80-100); MPV 6.8 fL (7.6-11.3); Monocytes % 16.5 % (3.3-12.3); Neutrophils % 67.9 % (41.7-73.7); Nucleated Red Blood Cells % 0.1 % (0-0); Platelets 324 thou/uL (152-406); RBC Red Blood Cell Count 3.43 M/uL (3.86-4.86); Red Cell Distribution Width 14.8 % (12.1-15.2)
[2024-04-27] MEDS: lisinopriL 20 MG TAB PO SCH (08:40)
[2024-04-27] MEDS: CLOPIDOGREL 75 MG TABLET PO SCH (08:40)
[2024-04-27] MEDS: CITALOPRAM 10 MG TABLET PO SCH (08:40)
[2024-04-27] MEDS: AMLODIPINE 10 MG TAB PO SCH (08:40)
[2024-04-27] MEDS: MULTIVITAMIN TAB PO SCH (08:40)
[2024-04-27] MEDS: glipiZIDE 5 MG TAB PO SCH (08:40)
[2024-04-27] MEDS: METFORMIN ER 500 MG TAB PO SCH (08:40)
[2024-04-27] MEDS: POTASSIUM 25 MEQ EFFERV TAB PO ONE (11:31)
[2024-04-27] MEDS: Meropenem 1,000 MG in NA CHLORIDE 0.9% 100 ML IV SCH (11:31)
--- NOTE | 2024-04-27 12:42 | P.PN ---
Subjective Date of Service: 04/27/24 Chief Complaint: Fever/ Abdominal pain Patient denies any complaint. No issues last night. Patient is eating well and currently at baseline. Physical Examination - Vital Signs Temperature: 98.0 F Blood Pressure: 146/65 Pulse: 88 Respirations: 14 Pulse Ox (%): 94 - Studies Microbiology Data (last 24 hrs): 04/24/24 19:07 Clean Catch Urine [place] Count - Final >100,000 CFU/ML. 04/24/24 19:07 Clean Catch Urine - Final Escherichia Coli Esbl Escherichia Coli 04/24/24 17:54 Blood - Blood Aerobic Blood Culture - Final Escherichia Coli 04/24/24 17:54 Blood - Blood Blood Culture Gram Stain - Final 04/24/24 17:54 Blood - Blood Anaerobic Blood Culture - Final Escherichia Coli 04/24/24 17:54 Blood - Blood Gram Stain - Final 04/24/24 18:03 Blood - Blood Aerobic Blood Culture - Final Escherichia Coli 04/24/24 18:03 Blood - Blood Blood Culture Gram Stain - Final 04/24/24 18:03 Blood - Blood Anaerobic Blood Culture - Final Escherichia Coli 04/24/24 18:03 Blood - Blood Gram Stain - Final Assessment And Plan - Plan Physical examination General: Alert and oriented x2, NAD, HEENT: Conjunctiva not pale, anicteric sclera Neck: Supple, no elevated JVD Heart: Heart sounds 1 and 2 normal, regular rhythm, normal rate, no pedal edema Lungs: Clear to auscultation bilaterally, adequate breath sounds bilaterally, no rhonchi or crackles. Abdomen: Soft, nondistended, nontender, normal bowel sounds. Extremities: No tenderness, no deformity Skin: Normal skin turgor, no rash. Neuro: No focal motor deficit. Normal speech. Psychiatry: Normal mood, no agitation. Assessment and plan Sepsis due to UTI Acute pyelonephritis Lactic acidosis Clinically improving Blood cultures growing pansensitive E. coli Urine culture: Pansensitive E. coli and ESBL E. coli Leukocytosis resolved, sepsis resolved. IV Zosyn changed to IV Merrem Place midline for 7 days of outpatient IV meropenem. Discontinue IV fluid. Lactic acidosis resolved. Hyponatremia Resolved Discontinue IV fluid Monitor BMP and replace electrolytes as needed. Advanced dementia Supportive management Monitor for agitation. DVT prophylaxis: Lovenox Advanced directive: full Code
[2024-04-28 06:24] LABS: Absolute Basophils 0.1 K/uL (0-0.5); Absolute Eosinophils 0.2 K/uL (0-0.5); Absolute Lymphocytes (CBC) 1.2 K/uL (0.7-4.9); Absolute Monocytes 1.2 K/uL (0.1-1.3); Absolute Neutrophil 5.7 K/uL (1.8-8.0); Basophils % 1.1 % (0-1.3); Eosinophils % 2.1 % (0-4.4); Hemoglobin 8.6 g/dL (12.0-15.0); Lymphocytes % 14.6 % (15.3-44.8); MCH 28.5 pg (27.0-35.0); MCHC 33.1 g/dL (32.0-36.0); MPV 7.1 fL (7.6-11.3); Monocytes % 14.7 % (3.3-12.3); Neutrophils % 67.5 % (41.7-73.7); Platelets 295 thou/uL (152-406); RBC Red Blood Cell Count 3.02 M/uL (3.86-4.86)
[2024-04-28 06:35] LABS: Anion Gap 9.4 mEq/L (5.0-15.0); Potassium 3.4 mEq/L (3.5-5.1)
[2024-04-28] MEDS: POTASSIUM 25 MEQ EFFERV TAB PO ONE (07:47)
[2024-04-28 08:13] VITALS: O2SAT 94
[2024-04-28 08:37] VITALS: BP 155/77; TEMP 98.3
[2024-04-28] MEDS ORDERED: POTASSIUM 25 MEQ EFFERV TAB PO ONE (09:00)
--- NOTE | 2024-04-28 09:06 | P.DS ---
Admission Date: 04/24/24 Discharge Date: 04/28/24 Disposition: TRANSFER TO SNF - MEDICAL Discharge Condition: FAIR Reason for Admission: Fever/ Abdominal pain Brief History of Present Illness: 84 yrs old Female who is a group home resident with past medical history of Alzheimer's dementia, GERD, hypertension presented to the ER with complaints of abdominal pain, fever, headache and chills. The patient reportedly had a fever up to 103. EMS noted that she was tachycardic to the 110s. D Patient was assessed in the ER and was found to have lactic acidosis and UTI with sepsis and was admitted for further management. Hospital Course: Sepsis due to UTI Acute pyelonephritis Lactic acidosis Patient admitted to the medical floor and treated aggressively with IV Zosyn Blood cultures growing pansensitive E. coli Urine culture: Pansensitive E. coli and ESBL E. coli Leukocytosis resolved, sepsis resolved. IV Zosyn changed to IV Merrem given the presence of ESBL E. coli in the urine Place midline for 7 days of outpatient IV meropenem. Patient treated with IV fluid and discontinued after sepsis resolved Overall patient has clinically improved to baseline, currently asymptomatic and eating well. She is discharged to group home with a prescription for IV meropenem. Hyponatremia Resolved with IV muscle Advanced dementia No agitation Patient's home medications were continued during the hospital stay. Vital Signs/Physical Exam: Temp Pulse Resp BP Pulse Ox 98.3 F 68 18 155/77 H 96 04/28/24 08:00 04/28/24 08:00 04/28/24 08:00 04/28/24 08:00 04/28/24 08:00 General: In no apparent distress, Oriented x1 HEENT: Mucous membr. moist/pink, Sclerae nonicteric Neck: JVD not distended Respiratory: Clear to auscultation bilaterally, Normal air movement Cardiovascular: No edema, Regular rate/rhythm, Normal S1 S2 Gastrointestinal: Normal bowel sounds, Soft and benign, Non-distended, No tenderness Musculoskeletal: No swelling, No tenderness Integumentary: No rashes, No erythema Neurological: Normal speech, Normal strength at 5/5 x4 extr Laboratory Data at Discharge: WBC 8.40 thou/uL (4.3-10.9) 04/28/24 05:59 Hgb 8.6 g/dL (12.0-15.0) L D 04/28/24 05:59 Hct 26.0 % (36.0-45.0) L 04/28/24 05:59 Plt Count 295 thou/uL (152-406) 04/28/24 05:59 PT 11.7 SECONDS (9.4-12.5) 04/24/24 17:54 INR 1.05 04/24/24 17:54 APTT 29.7 SECONDS (24.3-36.9) 04/24/24 17:54 Sodium 138 mEq/L (136-145) 04/28/24 05:59 Potassium 3.4 mEq/L (3.5-5.1) L D 04/28/24 05:59 BUN 9 mg/dL (7-18) 04/28/24 05:59 Creatinine 0.64 mg/dL (0.55-1.02) 04/28/24 05:59 Glucose 141 mg/dL (74-106) H 04/28/24 05:59 Total Bilirubin 0.5 mg/dL (0.2-1.0) 04/25/24 04:30 AST 14 U/L (15-37) L 04/25/24 04:30 ALT 15 U/L (13-56) 04/25/24 04:30 Alkaline Phosphatase 103 U/L (45-117) D 04/25/24 04:30 Home Medications: Amlodipine Besylate 10 mg PO DAILY 04/26/24 Baclofen 10 mg PO TID PRN 04/26/24 Citalopram Hydrobromide [Celexa] 20 mg PO DAILY 04/26/24 Clopidogrel Bisulfate [Plavix] 75 mg PO DAILY 04/26/24 Codeine/APAP [Tylenol #3*] 1 tab PO BEDTIME 04/26/24 Dicyclomine HCl 10 mg PO BID 04/26/24 Donepezil HCl 10 mg PO BEDTIME 04/26/24 Lisinopril [Zestril] 40 mg PO DAILY 04/26/24 Loperamide [Imodium*] 2 mg PO Q6HP PRN 04/26/24 Melatonin/Pyridoxine [Melatonin 5 mg Tablet] 2 each PO BEDTIME PRN 04/26/24 Memantine HCl [Memantine HCl ER] 14 mg PO BEDTIME 04/26/24 Metformin ER [Glucophage ER*] 1,000 mg PO DAILY 04/26/24 Multivit-Min/Iron/Folic Acid/K [Multi-Day Plus Minerals Tablet] 1 each PO DAILY 04/26/24 Omeprazole 20 mg PO DAILY 04/26/24 clonazePAM [Clonazepam] 0.25 mg PO TID PRN 04/26/24 glipiZIDE [Glipizide] 10 mg PO DAILY 04/26/24 Meropenem [Merrem*] 1 gm IV Q8H #21 vial 04/28/24 New Medications: Meropenem [Merrem*] 1 gm IV Q8H #21 vial Physician Discharge Instructions: Patient was admitted due to urosepssi with AMS. Baseline dementia. urine culture grew ESBL E. coli and pansensitive E. coli. Patient was initially treated with IV zosyn and transitioned to IV Meropenem. Patient need to complete 7 days of IV meropenem. AMS resolved, patient improved to baseline. Stable vitals. She has good oral intake. Diet: ADA Activity: Fall precautions Followup: NONE,NONE [Primary Care Provider] - Time spent managing pt's care (in minutes): 35
[2024-04-28] MEDS ORDERED: MEMANTINE HCL 10 MG TABLET PO SCH (21:00)
--- NOTE | 2024-04-29 12:58 | EKG ---
Test Date: 2024-04-26 Test Time: 21:04:35 Contract Post Office Clerk: SERA MEASUREMENT RESULTS: Intervals: Rate: 124 VA: QRSD: 70 QT: 310 QTc: 445 [place]: P: VA: QRS: 70 T: -65 INTERPRETIVE STATEMENTS: Atrial fibrillation with rapid ventricular response with premature ventricular or aberrantly conducted complexes Marked ST abnormality, possible inferior subendocardial injury Abnormal ECG Compared to ECG 04/26/2024 21:03:28 No significant changes Electronically Signed On 04-29-24 12:51:43 CDT by Preston Parsons
--- NOTE | 2024-04-29 12:58 | EKG ---
Test Date: 2024-04-26 Test Time: 21:03:28 Model Home Sales Greeter: SERA MEASUREMENT RESULTS: Intervals: Rate: 129 MA: QRSD: 76 QT: 284 QTc: 416 [place]: P: MA: QRS: 71 T: -86 INTERPRETIVE STATEMENTS: Atrial fibrillation with rapid ventricular response with premature ventricular or aberrantly conducted complexes Marked ST abnormality, possible inferior subendocardial injury Abnormal ECG Compared to ECG 04/24/2024 18:10:39 Ventricular premature complex(es) now present Sinus rhythm no longer present ST (T wave) deviation still present Electronically Signed On 04-29-24 12:51:47 CDT by Preston Parsons
--- NOTE | 2024-04-29 13:09 | EKG ---
Test Date: 2024-04-24 Test Time: 18:10:39 Regulatory Compliance Manager: MEASUREMENT RESULTS: Intervals: Rate: 94 AL: 132 QRSD: 70 QT: 358 QTc: 447 [place]: P: 58 AL: 132 QRS: 55 T: 83 INTERPRETIVE STATEMENTS: Normal sinus rhythm Nonspecific ST and T wave abnormality Abnormal ECG No previous ECG available for comparison Electronically Signed On 04-29-24 12:55:57 CDT by Preston Parsons
== END 2024-04-28 14:10 | DRG 872 ==
LOC: ER 16:20 → ERHOLD 20:38 → 2ND 04-25 13:46
PROVIDERS: ADMIT Family Medicine; ATTEND Internal Medicine
DX: A41.51 Sepsis due to Escherichia coli [E. coli] (principal); E87.20 Acidosis, unspecified; N10 Acute pyelonephritis; Z16.12 Extended spectrum beta lactamase (ESBL) resistance; E87.1 Hypo-osmolality and hyponatremia; R65.20 Severe sepsis without septic shock; I10 Essential (primary) hypertension; K21.9 Gastro-esophageal reflux disease without esophagitis; G30.9 Alzheimer's disease, unspecified; F02.80 Dementia in other diseases classified elsewhere, unspecified severity, without behavioral disturbance, psychotic disturbance, mood disturbance, and anxiety; Z88.0 Allergy status to penicillin; Z88.5 Allergy status to narcotic agent
CPT/HCPCS: 36415; 70450; 71045; 71260; 74177; 80048; 80053; 81001; 82947; 83605; 85025; 85610; 85730; 87040; 87077; 87086; 87088; 87186; 87205; 93005; 94760; 96365; 99285; J0692; J1650; J2185; J2405; J2543; J7030; Q9967

== ENCOUNTER 2024-07-01 08:06 | Emergency (ER) | payer OTHER ==
--- NOTE | 2024-07-01 08:41 | RAD REPORT ---
EXAM: CT brain without contrast HISTORY: fall, possible loc, blood thinners COMPARISON: 02/24/2024 TECHNIQUE: Multiple contiguous axial images were obtained and a CT of the brain without contrast. Sag ittal and coronal reformats were performed. One or more of the following dose reduction techniques were used: Automated exposure control, adjust ment of the mA and/or kV according to patient size, and/or iterative reconstruction. FINDINGS: No evidence of hydrocephalus, intracranial hemorrhage, or extra-axial fluid collection. Moderate brain atrophy with moderate periventricular and deep white matter chronic microvascular isc hemic changes present. No evidence of midline shift or areas of brain edema. The calvarium is intact. The visualized paranasal sinuses and mastoid air cells are essentially clear . Mild vertebral atherosclerosis. IMPRESSION: No evidence of acute intracranial abnormality. EXAM: CT of the cervical spine without contrast HISTORY: Neck pain, injury fall, possible loc, blood thinners TECHNIQUE: Multiple contiguous axial images were obtained in a CT of the cervical spine without contr ast. Sagittal and coronal reformats were performed. FINDINGS: 3 mm degenerative anterolisthesis of C3 on 4. 3 mm degenerative anterolisthesis C4 on 5. No evidence of acute fracture or subluxation.. Prominent disc thinning with posterior osteophyte noted mid cervical levels. No prevertebral soft tissue swelling is seen. The odontoid is normal. The lung apices are unremarkable. IMPRESSION: No evidence of acute osseous abnormality of the cervical spine. Moderate to advanced mid cervical degenerative spondylosis.
--- NOTE | 2024-07-01 08:43 | EDPHYS ---
Physician Documentation [facility] Name: Libby Bosch Age: 84 yrs Sex: Female : 1940 Arrival Date: 07/01/2024 Time: 08:06 Bed 14 Private MD: ED Physician Prosper Alexander HPI: 07/01 08:17 This 84 yrs old Female presents to ER via EMS with complaints of Laceration ec2 To Head, Fall Injury. 08:17 Patient arrives today for evaluation of a ground-level fall. Reportedly was witnessed ec2 by other residents at the group home, history of Alzheimer's dementia, is a poor historian. Patient is reportedly on Plavix. . Historical: - Allergies: 08:14 PENICILLINS; kc6 08:14 Morphine; kc6 - PMHx: 08:14 Alzheimer's disease; Hypertensive disorder; GERD; Dementia; Diabetes mellitus; kc6 Depressive disorder; Anxiety; Coronary atherosclerosis; - PSHx: 08:14 Unable to Obtain; kc6 - Immunization history:: Adult Immunizations up to date. - Infectious Disease History:: Denies. - Social history:: Smoking status: unknown. ROS: 08:17 Constitutional: as per hpi ec2 Exam: 08:17 Constitutional: GEN: NAD Head: atraumatic Eyes: EOMI Ears: External ears are ec2 normal. CV: regular rate LUNGS: no respiratory distress ABD: non-distended SKIN: no evidence of rashes, small punctate injury to the left occiput MSK: no evidence of trauma Vital Signs: 08:10 BP 176 / 71; Pulse 62; Resp 16 S; Temp 98.4(O); Pulse Ox 97% on R/A; Pain 0/10; kc6 08:10 Pain Scale: Adult kc6 MDM: 08:14 Medical Screening Exam initiated ec2 08:17 Data reviewed: vital signs, nurses notes. ED course: Patient arrives today for ec2 evaluation of a head injury. Examination yields skin findings as above. Will obtain CT scan of the head and C-spine given the patient's head injury and antiplatelet status. Differential includes processes such as intracranial brain bleed, C-spine fracture, concussion. 08:42 ED course: CT scan of the head and C-spine without traumatic pathology. Will discharge ec2 home. Return precautions given.. 07/01 08:17 Order name: CT Head C Spine; Complete Time: 08:42 ec2 07/01 08:17 Order name: Wound Care; Complete Time: 08:56 ec2 Administered Medications: No medications were administered Disposition Summary: 07/01/24 08:43 Discharge Ordered Notes: Location: Home ec2 Condition: Stable ec2 Diagnosis - Fall on same level, unspecified ec2 - Unspecified injury of head, initial encounter ec2 - Abrasion of scalp ec2 Followup: ec2 - With: Private Physician - When: - Reason: Recheck today's complaints Discharge Instructions: - Discharge Summary Sheet ec2 - Head Injury, Adult, [id number] ec2 Forms: - Medication Reconciliation Form ec2 - Antibiotic Education ec2 - Prescription Opioid Use ec2 - Patient Portal Instructions ec2 - Leadership Thank You Letter ec2 Signatures: Dispatcher [employer] Carolina Monroe RN RN kc6 Prosper Alexander MD MD ec2 Corrections: (The following items were deleted from the chart) 08:17 08:17 Head C Spine MPR Wo Con+CT.RAD.BRZ ordered. EDMS EDMS
--- NOTE | 2024-07-01 08:43 | ER ---
Nurse's Notes [facility] Name: Libby Bosch Age: 84 yrs Sex: Female : 1940 Arrival Date: 07/01/2024 Time: 08:06 Bed 14 Private MD: Diagnosis: Fall on same level, unspecified;Unspecified injury of head, initial encounter;Abrasion of scalp Presentation: 07/01 08:10 Chief complaint: EMS states: they were toned out to [place] for a fall witnessed by 6 other residents. unknown LOC, pt takes plavix daily and presents with a laceration to the back of her head. Coronavirus screen: At this time, the client does not indicate any symptoms associated with coronavirus-19. Ebola Screen: No symptoms or risks identified at this time. Complicating Factors: There are no complicating factors for this patient. Initial Sepsis Screen: Does the patient meet any 2 criteria? Altered Mental Status. Does the patient have a suspected source of infection? No. Patient's initial sepsis screen is negative. Risk Assessment: Do you want to hurt yourself or someone else? Patient reports no desire to harm self or others. Onset of symptoms was July 01, 2024. Care prior to arrival: Glucose check: 166. 08:10 Method Of Arrival: EMS: [facility] 08:10 Acuity: JENNIFER 3 kc Historical: - Allergies: 08:14 PENICILLINS; kc6 08:14 Morphine; kc6 - PMHx: 08:14 Alzheimer's disease; Hypertensive disorder; GERD; Dementia; Diabetes mellitus; kc6 Depressive disorder; Anxiety; Coronary atherosclerosis; - PSHx: 08:14 Unable to Obtain; kc6 - Immunization history:: Adult Immunizations up to date. - Infectious Disease History:: Denies. - Social history:: Smoking status: unknown. Screenin:15 [facility] ED Fall Risk Assessment (Adult) History of falling in the last 3 months, kc including since admission Yes- single mechanical fall (1 pt) Confusion or Disorientation Yes (5 pts) Intoxicated or Sedated No (0 pts) Impaired Gait Yes (1 pt) Mobility Assist Device Used Yes (1 pt) Altered Elimination No (0 pt) Score/Fall Risk Level 3 or more points = High Risk Oriented to surroundings, Maintained a safe environment, Educated pt \T\ family on fall prevention, incl call for assistance when getting out of bed. Abuse screen: Denies threats or abuse. Denies injuries from another. Nutritional screening: No deficits noted. Tuberculosis screening: No symptoms or risk factors identified. Assessment: 08:16 General: Appears in no apparent distress. comfortable, well groomed, well developed, kc6 Behavior is calm, cooperative, appropriate for age. Pain: Denies pain. Neuro: Level of Consciousness is awake, alert, obeys commands, confused, Oriented to person, Appropriate for age. Cardiovascular: Capillary refill < 3 seconds. Respiratory: Airway is patent Trachea midline Respiratory effort is even, unlabored, Respiratory pattern is regular, symmetrical. GI: No signs and/or symptoms were reported involving the gastrointestinal system. : No signs and/or symptoms were reported regarding the genitourinary system. EENT: No signs and/or symptoms were reported regarding the EENT system. Derm: Skin is healthy with good turgor, Skin is pink, warm \T\ dry. Musculoskeletal: No signs and/or symptoms reported regarding the musculoskeletal system. Circulation, motion, and sensation intact. Range of motion: intact in all extremities. Injury Description: Laceration sustained to scalp is clean, superficial, not bleeding, was sustained 30-60 minutes ago. is bleeding no active bleeding noted. 09:10 Reassessment: Patient appears in no apparent distress at this time. No changes from kc6 previously documented assessment. Patient and/or family updated on plan of care and expected duration. Pain level reassessed. nurse to nurse report given to Ramona. they state that they will arrange transport and call back with ETA. Vital Signs: 08:10 BP 176 / 71; Pulse 62; Resp 16 S; Temp 98.4(O); Pulse Ox 97% on R/A; Pain 0/10; kc6 08:10 Pain Scale: Adult kc6 ED Course: 08:10 Patient arrived in ED. kc6 08:14 Triage completed. kc6 08:14 Prosper Alexander MD is Attending Physician. ec2 08:14 Arm band placed on. kc6 08:15 Patient has correct armband on for positive identification. Bed in low position. Call kc light in reach. Side rails up X2. Pulse ox on. NIBP on. Door closed. Noise minimized. Lights dimmed. Pillow given. 08:15 Patient maintains SpO2 saturation greater than 95% on room air. kc6 08:17 Carolina Zendejas, RN is Primary Nurse. kc6 08:34 CT Head C Spine In Process Unspecified. EDMS 09:41 No provider procedures requiring assistance completed. Patient did not have IV access kc6 during this emergency room visit. Administered Medications: No medications were administered Medication: 09:42 VIS not applicable for this client. kc6 Outcome: 08:43 Discharge ordered by . ec2 09:41 Discharged to custodial. kc6 09:41 Condition: good 09:41 Discharge instructions given to family, custodial, Instructed on discharge instructions, follow up and referral plans. wound care, Demonstrated understanding of instructions, follow-up care, wound care, 09:42 Patient left the ED. kc6 Signatures: Dispatcher [employer] Carolina Monroe, RN RN kc6 Prosper Alexander MD MD ec2
[2024-07-01 09:46] VITALS: BP 176/71; TEMP 98.4; O2SAT 97
== END 2024-07-01 09:42 | disposition home or self-care (01) ==
LOC: ER 08:06
DX: S09.90XA Unspecified injury of head, initial encounter (principal); S00.01XA Abrasion of scalp, initial encounter; W18.30XA Fall on same level, unspecified, initial encounter; Y92.129 Unspecified place in nursing home as the place of occurrence of the external cause; G30.9 Alzheimer's disease, unspecified; F02.80 Dementia in other diseases classified elsewhere, unspecified severity, without behavioral disturbance, psychotic disturbance, mood disturbance, and anxiety; I10 Essential (primary) hypertension; E11.9 Type 2 diabetes mellitus without complications; Z88.0 Allergy status to penicillin; Z88.5 Allergy status to narcotic agent
CPT/HCPCS: 70450; 72125; 99283

== ENCOUNTER 2024-07-22 13:27 | Inpatient (IN) | payer OTHER ==
--- NOTE | 2024-07-22 14:30 | RAD REPORT ---
EXAM: CT brain without contrast HISTORY: Confusion/alteration of consciousness COMPARISON: June 2024 TECHNIQUE: Multiple contiguous axial images were obtained and a CT of the brain without contrast.. Sagittal and coronal reconstruction performed. Automated exposure control, adjustment of the mA and/or kV according to patient size, and/or iterative reconstruction. Unless otherwise specified, incidental f indings do not require dedicated imaging follow-up FINDINGS: An intracranial bleed is not seen Prominent cerebral atrophy. Prominence of the ventricles likely the sequela of the cerebral atrophy. No extra-axial fluid collection noted Mild to moderate low-density paraventricular, deep and subcortical white matter likely ischemic byrd es secondary to small vessel. No fluid within the visualized sinuses or mastoids noted. IMPRESSION: No acute intracranial abnormality noted. If the patient continues to have symptoms to suggest an acute intracranial abnormality then MRI of th e brain would be recommended.
[2024-07-22 14:43] LABS: Absolute Basophils 0.1 K/uL (0-0.5); Absolute Eosinophils 0.5 K/uL (0-0.5); Absolute Monocytes 0.8 K/uL (0.1-1.3); Absolute Neutrophil 7.2 K/uL (1.8-8.0); Basophils % 0.5 % (0-1.3); Eosinophils % 4.9 % (0-4.4); Hematocrit 43.1 % (36.0-45.0); Hemoglobin 13.7 g/dL (12.0-15.0); Lymphocytes % 19.1 % (15.3-44.8); MCH 27.2 pg (27.0-35.0); MCHC 31.9 g/dL (32.0-36.0); MCV 85.3 fL (80-100); MPV 7.1 fL (7.6-11.3); Monocytes % 7.3 % (3.3-12.3); Neutrophils % 68.2 % (41.7-73.7); Nucleated Red Blood Cells % 0.1 % (0-0); Platelets 351 thou/uL (152-406); RBC Red Blood Cell Count 5.05 M/uL (3.86-4.86); Red Cell Distribution Width 16.8 % (12.1-15.2)
--- NOTE | 2024-07-22 15:02 | RAD REPORT ---
Procedure: Chest Single View HISTORY: Cough COMPARISON: April 2024 FINDINGS: The lungs appear clear of acute infiltrate. No significant pleural effusion noted. The heart is normal size. IMPRESSION: No acute abnormality is displayed.
[2024-07-22 15:06] LABS: ALT/SGPT 32 U/L (13-56); AST/SGOT 39 U/L (15-37); Albumin 3.7 g/dL (3.4-5.0); Albumin/Globulin Ratio 0.8 (1.1-1.8); Alkaline Phosphatase 107 U/L (45-117); Anion Gap 9.9 mEq/L (5.0-15.0); BUN Blood Urea Nitrogen 18 mg/dL (7-18); Bicarbonate 27 mEq/L (21-32); Bilirubin Total 0.3 mg/dL (0.2-1.0); Globulin 4.8 g/dL (2.3-3.5); Glomerular Filtration Rate 52 ml/min (=/>90); Glucose Level 139 mg/dL (74-106); Potassium 3.9 mEq/L (3.5-5.1); Protein, Total 8.5 g/dL (6.4-8.2); Sodium Level 137 mEq/L (136-145); Troponin High Sensitivity 12.2 pg/mL (<58.9)
[2024-07-22 15:25] LABS: Bilirubin Direct < 0.2 mg/dL (0-0.2); Bilirubin Indirect, Calculated 0.1 mg/dL (0.2-0.8)
[2024-07-22 15:37] LABS: Barbiturates NEGATIVE (NEGATIVE); Benzodiazepines NEGATIVE (NEGATIVE); Cocaine NEGATIVE (NEGATIVE); METHAMPHETAM NEGATIVE (NEGATIVE); Methadone NEGATIVE (NEGATIVE); Opiates POSITIVE (NEGATIVE); Phencyclidine NEGATIVE (NEGATIVE); THC Cannibis NEGATIVE (NEGATIVE)
[2024-07-22 15:38] LABS: Specific Gravity < 1.005 (1.005-1.030); Sqamous Epithelial <5 /HPF (None Seen); Urine Bacteria 20-50 /HPF (<20); Urine Bilirubin NEGATIVE (Negative); Urine Blood Trace (Negative); Urine Clarity Extremely Turbid (Clear); Urine Color Colorless (Yellow); Urine Crystals Unidentified Few /HPF (None Seen); Urine Culture Reflex Order REFLEXED; Urine Glucose NEGATIVE (Negative); Urine Ketones NEGATIVE (Negative); Urine Micro Reflex YN NO BILL MICROSCOPIC; Urine Mucus Slight /HPF (None Seen); Urine Nitrite 2+ (Negative); Urine Protein TRACE (Negative); Urine RBC 21-50 /HPF (None Seen); Urine Urobilinogen Normal (Normal); Urine WBC >50 /HPF (<5); Urine WBC Clump Few /HPF (None Seen)
--- NOTE | 2024-07-22 17:05 | EDPHYS ---
Physician Documentation [facility] Name: Libby Bosch Age: 84 yrs Sex: Female : 1940 Arrival Date: 07/22/2024 Time: 13:27 Bed 16 Private MD: ED Physician Umang Adorno HPI: 07/22 18:15 This 84 yrs old Female presents to ER via EMS with complaints of Altered Mental Status. rt 18:15 Patient presents to the ED with altered mental status. History is limited due to rt patient baseline dementia with altered mental status. Patient is off of her baseline from last night when she was talking like her normal self. No further history could be obtained, symptoms are moderate in severity, no other aggravating or alleviating factors.. Historical: - Allergies: 13:36 PENICILLINS; kc6 13:36 Morphine; kc6 - PMHx: 13:36 Alzheimer's disease; Anxiety; coronary atherosclerosis; Dementia; depressive disorder; kc6 diabetes mellitus; GERD; Hypertensive disorder; - PSHx: 13:36 Unable to Obtain; kc6 - Immunization history:: Adult Immunizations up to date. - Infectious Disease History:: Denies. - Social history:: Smoking status: unknown. ROS: 18:15 Unable to obtain ROS due to altered mental status, rt Exam: 18:15 Head/Face: Normocephalic, atraumatic. Chest/axilla: Normal chest wall appearance and rt motion. Nontender with no deformity. No lesions are appreciated. Cardiovascular: Regular rate and rhythm with a normal S1 and S2. No gallops, murmurs, or rubs. Normal PMI, no JVD. No pulse deficits. Respiratory: Lungs have equal breath sounds bilaterally, clear to auscultation and percussion. No rales, rhonchi or wheezes noted. No increased work of breathing, no retractions or nasal flaring. Abdomen/GI: Soft, non-tender, with normal bowel sounds. No distension or tympany. No guarding or rebound. No evidence of tenderness throughout. Skin: Warm, dry with normal turgor. Normal color with no rashes, no lesions, and no evidence of cellulitis. MS/ Extremity: Pulses equal, no cyanosis. Neurovascular intact. Full, normal range of motion. 18:15 Constitutional: The patient appears Confused, withdrawn 18:15 ECG was reviewed by the Attending Physician. Vital Signs: 13:35 BP 165 / 98; Pulse 77; Resp 17 S; Pulse Ox 96% on R/A; Weight 54.88 kg (M); kc6 16:16 BP 194 / 83; Pulse 75; Resp 17 S; Pulse Ox 96% on R/A; kc6 19:25 BP 203 / 97; Pulse 73; Resp 18; Temp 97.7(TE); Pulse Ox 97% on R/A; br2 MDM: 13:38 Medical Screening Exam initiated rt 18:15 Differential Diagnosis: UTI, pneumonia, intracranial hemorrhage. Data reviewed: vital rt signs, nurses notes, lab test result(s), EKG, radiologic studies. Consideration of Admission/Observation Patient was admitted/placed on observation. Management of patient was discussed with the following: Hospitalist: Agrees to admit. I considered the following discharge prescriptions or medication management in the emergency department Medications were administered in the Emergency Department. See MAR. Independent interpretation of the following test(s) in the Emergency Department CT Scan: My interpretation is No intracranial hemorrhage seen on my interpretation of CT scan images. Care significantly affected by the following chronic conditions: Dementia. Counseling: I had a detailed discussion with the patient and/or guardian regarding the historical points, exam findings, and any diagnostic results supporting the discharge/admit diagnosis, lab results, radiology results, the need for further work-up and treatment in the hospital. Response to treatment: There is no appreciated change of the patient's symptoms at this time. 07/22 13:45 Order name: Basic Metabolic Panel; Complete Time: 16:18 rt 07/22 13:45 Order name: CBC with Diff; Complete Time: 15:04 rt 07/22 13:45 Order name: LFT's; Complete Time: 16:18 rt 07/22 13:45 Order name: Troponin HS; Complete Time: 16:18 rt 07/22 13:45 Order name: UAM; Complete Time: 16:18 rt 07/22 13:45 Order name: UDS; Complete Time: 16:18 rt 07/22 15:58 Order name: Urine Culture EDMS 07/22 16:39 Order name: Blood Culture Adult (2) rt 07/22 16:39 Order name: CMP rt 07/22 16:39 Order name: Lactate w/ 2H reflex if indic. rt 07/22 16:39 Order name: Protime (+inr) rt 07/22 16:39 Order name: Ptt, Activated rt 07/22 13:45 Order name: XRAY Chest (1 view); Complete Time: 15:04 rt 07/22 13:45 Order name: CT Head Brain wo Cont; Complete Time: 15:04 rt 07/22 13:45 Order name: EKG; Complete Time: 13:45 rt 07/22 13:45 Order name: Cardiac monitoring; Complete Time: 13:55 rt 07/22 13:45 Order name: EKG - Nurse/Tech; Complete Time: 14:15 rt 07/22 13:45 Order name: IV Saline Lock; Complete Time: 14:27 rt 07/22 13:45 Order name: Labs collected and sent; Complete Time: 14:27 rt 07/22 13:45 Order name: O2 Per Protocol; Complete Time: 13:55 rt 07/22 13:45 Order name: O2 Sat Monitoring; Complete Time: 13:55 rt 07/22 16:39 Order name: Accucheck; Complete Time: 17:06 rt 07/22 16:39 Order name: IV Saline Lock - Large Bore; Complete Time: 17:06 rt 07/22 16:39 Order name: Vital Signs; Complete Time: 17:06 rt EC:15 Rate is 83 beats/min. Rhythm is regular, Normal Sinus Rhythm with No ectopy. QRS [place] rt is Normal. [place] interval is normal. QRS interval is normal. QT interval is normal. No Q waves. Clinical impression: NSR w/ Non-specific ST/T Changes. Administered Medications: 18:38 Drug: Meropenem IV 1 grams IV at calculated rate once; (mix in NS 100 mL) Route: IV; kc6 Rate: calculated rate; Site: left forearm; 19:10 Follow up: Response: No adverse reaction; IV Intake: 100ml br2 Disposition Summary: 07/22/24 17:05 Hospitalization Ordered Notes: Hospitalization Status: Inpatient Admission rt Provider: Jos Meadows rt Location: Telemetry/MedSurg (Inpatient) rt Condition: Stable rt Problem: new rt Symptoms: have improved rt Bed/Room Type: Standard rt Room Assignment: 214(07/22/24 17:49) bd Diagnosis - UTI/ Urinary tract infection, site not specified rt - Altered mental status, unspecified rt Forms: - Medication Reconciliation Form rt - SBAR form rt - Leadership Thank You Letter rt Signatures: Dispatcher [employer] EDMS Zena sage bd Carolina Zendejas, RN RN kc6 Umang Adorno MD MD rt Radha Durant RN br2 Corrections: (The following items were deleted from the chart) 13:45 13:45 BASIC METABOLIC PANEL+C.LAB.BRZ ordered. EDMS EDMS 13:45 13:45 CBC+H.LAB.BRZ ordered. EDMS EDMS 13:45 13:45 HEPATIC FUNCTION+C.LAB.BRZ ordered. EDMS EDMS 13:45 13:45 Troponin High Sensitivity+C.LAB.BRZ ordered. EDMS EDMS 13:45 13:45 Urinalysis W/Microscopic+U.LAB.BRZ ordered. EDMS EDMS 13:45 13:45 URINE DRUG SCREEN+UC.LAB.BRZ ordered. EDMS EDMS 16:39 16:39 BLOOD CULTURE*+BA.LAB.BRZ ordered. EDMS EDMS 16:39 16:39 COMPREHENSIVE METABOLIC PANEL+C.LAB.BRZ ordered. EDMS EDMS 16:39 16:39 LACTATE+C.LAB.BRZ ordered. EDMS EDMS 16:39 16:39 PROTIME (+INR)+COAG.LAB.BRZ ordered. EDMS EDMS 16:39 16:39 PTT, ACTIVATED+COAG.LAB.BRZ ordered. EDMS EDMS 17:49 17:05 rt bd
--- NOTE | 2024-07-22 17:05 | ER ---
Nurse's Notes [facility] Name: Libby Bosch Age: 84 yrs Sex: Female : 1940 Arrival Date: 07/22/2024 Time: 13:27 Bed 16 Private MD: Diagnosis: UTI/ Urinary tract infection, site not specified;Altered mental status, unspecified Presentation: 07/22 13:35 Chief complaint: EMS states: they were toned out for AMS. pts LKW was yesterday before the [facility] bed. Coronavirus screen: At this time, the client does not indicate any symptoms associated with coronavirus-19. Ebola Screen: No symptoms or risks identified at this time. Initial Sepsis Screen: Does the patient meet any 2 criteria? Altered Mental Status. Does the patient have a suspected source of infection? No. Patient's initial sepsis screen is negative. Risk Assessment: Do you want to hurt yourself or someone else? Unable to obtain. Onset of symptoms was July 22, 2024. 13:35 Method Of Arrival: EMS: [facility] 13:35 Acuity: JENNIFER 2 kc6 Historical: - Allergies: 13:36 PENICILLINS; kc6 13:36 Morphine; kc6 - PMHx: 13:36 Alzheimer's disease; Anxiety; coronary atherosclerosis; Dementia; depressive disorder; kc6 diabetes mellitus; GERD; Hypertensive disorder; - PSHx: 13:36 Unable to Obtain; kc6 - Immunization history:: Adult Immunizations up to date. - Infectious Disease History:: Denies. - Social history:: Smoking status: unknown. Screenin:37 [facility] ED Fall Risk Assessment (Adult) History of falling in the last 3 months, kc6 including since admission No falls in past 3 months (0 pts) Confusion or Disorientation Yes (5 pts) Intoxicated or Sedated No (0 pts) Impaired Gait Yes (1 pt) Mobility Assist Device Used Yes (1 pt) Altered Elimination No (0 pt) Score/Fall Risk Level 3 or more points = High Risk Oriented to surroundings, Maintained a safe environment, Educated pt \T\ family on fall prevention, incl call for assistance when getting out of bed. Abuse screen: Denies threats or abuse. Denies injuries from another. Nutritional screening: No deficits noted. Tuberculosis screening: No symptoms or risk factors identified. Assessment: 13:45 General: Appears in no apparent distress. comfortable, well groomed, well developed, kc6 Behavior is calm, cooperative, drowsy. Pain: Unable to use pain scale. Patient is disoriented. Neuro: Level of Consciousness is confused, lethargic, Oriented to none. Cardiovascular: Capillary refill < 3 seconds. Respiratory: Airway is patent Trachea midline Respiratory effort is even, unlabored, Respiratory pattern is regular, symmetrical. GI: No signs and/or symptoms were reported involving the gastrointestinal system. : No signs and/or symptoms were reported regarding the genitourinary system. EENT: No signs and/or symptoms were reported regarding the EENT system. Derm: No signs and/or symptoms reported regarding the dermatologic system. Skin is intact, is fragile, is thin, with poor turgor Skin is pink, warm \T\ dry. Musculoskeletal: No signs and/or symptoms reported regarding the musculoskeletal system. Circulation, motion, and sensation intact. Range of motion: intact in all extremities. 14:45 Reassessment: Patient appears in no apparent distress at this time. No changes from kc6 previously documented assessment. Patient and/or family updated on plan of care and expected duration. Pain level reassessed. 16:16 Reassessment: Patient appears in no apparent distress at this time. No changes from kc6 previously documented assessment. Patient and/or family updated on plan of care and expected duration. Pain level reassessed. 17:16 Reassessment: Patient appears in no apparent distress at this time. No changes from kc6 previously documented assessment. Patient and/or family updated on plan of care and expected duration. Pain level reassessed. 18:16 Reassessment: Patient appears in no apparent distress at this time. No changes from kc6 previously documented assessment. Patient and/or family updated on plan of care and expected duration. Pain level reassessed. 19:25 Reassessment: Patient and/or family updated on plan of care and expected duration. Pain br2 level reassessed. Patient is alert, oriented x 3, equal unlabored respirations, skin warm/dry/pink. General: Appears in no apparent distress. comfortable, Behavior is drowsy. Neuro: Level of Consciousness is lethargic, Oriented to none. Vital Signs: 13:35 BP 165 / 98; Pulse 77; Resp 17 S; Pulse Ox 96% on R/A; Weight 54.88 kg (M); kc6 16:16 BP 194 / 83; Pulse 75; Resp 17 S; Pulse Ox 96% on R/A; kc6 19:25 BP 203 / 97; Pulse 73; Resp 18; Temp 97.7(TE); Pulse Ox 97% on R/A; br2 ED Course: 13:34 Patient arrived in ED. kc6 13:35 Carolina Zendejas RN is Primary Nurse. kc6 13:35 Umang Adorno MD is Attending Physician. rt 13:36 Triage completed. kc6 13:36 Arm band placed on. kc6 13:37 Patient has correct armband on for positive identification. Placed in gown. Bed in low kc6 position. Call light in reach. Side rails up X2. secured entrance monitor on. Pulse ox on. NIBP on. Door closed. Noise minimized. Lights dimmed. Warm blanket given. Pillow given. 13:37 Patient maintains SpO2 saturation greater than 95% on room air. kc6 14:14 CT Head Brain wo Cont In Process Unspecified. EDMS 14:27 Inserted saline lock: 24 gauge in left forearm, using aseptic technique. Blood kc6 collected. Flushed with 10 mL NS. 14:36 XRAY Chest (1 view) In Process Unspecified. EDMS 15:23 Repositioned patient. Cleaned of incontinence. Linen changed. kc6 15:23 Straight cath inserted, using sterile technique, 14 Fr. Specimen obtained. Returned kc6 clear yellow urine. Patient tolerated well. 17:04 Jos Meadows MD is Hospitalizing Provider. rt 18:25 Accessed peripheral vein via ultrasound, utilizing dynamic ultrasound technique Blood kc6 collected. using 20G Nexia IV catheter ,sterile technique, per hospital protocol. Clean \T\ dry. Dressing intact. Good blood return. Flushes easily. by Desirae Avila RN. 19:00 Report given to Radha Durant RN. kc6 19:37 Ptt, Activated Sent. aa10 19:37 Protime (+inr) Sent. aa10 20:00 Provided Education on: follow up with jewel hole driller. br2 20:00 No provider procedures requiring assistance completed. Patient admitted, IV remains in br2 place. Administered Medications: 18:38 Drug: Meropenem IV 1 grams IV at calculated rate once; (mix in NS 100 mL) Route: IV; kc6 Rate: calculated rate; Site: left forearm; 19:10 Follow up: Response: No adverse reaction; IV Intake: 100ml br2 Medication: 20:00 VIS not applicable for this client. br2 Intake: 19:10 IV: 100ml; Total: 100ml. br2 Outcome: 17:05 Decision to Hospitalize by Provider. rt 20:00 Patient left the ED. br2 20:00 Admitted to Med/surg accompanied by tech, via stretcher, room 214, br2 20:00 Condition: stable 20:00 Instructed on the need for admit, family spoken to about reason for admission Signatures: Dispatcher [employer] EDMS Carolina Zendejas RN RN kc6 Umang Adorno MD MD rt Radha Durant RN RN br2 Karely Mai RN RN aa10 Corrections: (The following items were deleted from the chart) 15:23 14:27 Inserted saline lock: 24 gauge in right forearm, using aseptic technique. Blood kc6 collected. Flushed with 10 mL NS kc6 16:16 14:45 Reassessment: Patient appears in no apparent distress at this time. No changes kc6 from previously documented assessment. Patient and/or family updated on plan of care and expected duration. Pain level reassessed. Patient is alert, oriented x 3, equal unlabored respirations, skin warm/dry/pink. kc6 16:16 16:16 Reassessment: Patient appears in no apparent distress at this time. No changes kc6 from previously documented assessment. Patient and/or family updated on plan of care and expected duration. Pain level reassessed. Patient is alert, oriented x 3, equal unlabored respirations, skin warm/dry/pink. kc6
--- NOTE | 2024-07-22 17:33 | P.HP ---
Certification for Inpatient Patient admitted to: Inpatient With expected LOS: >2 Midnights Patient will require the following post-hospital care: None Practitioner: I am a practitioner with admitting privileges, knowledge of patient current condition, hospital course, and medical plan of care. Services: Services provided to patient in accordance with Admission requirements found in Title 42 Section 412.3 of the Code of Federal Regulations Patient History Date of Service: 07/22/24 Reason for admission: AMS, UTI History of Present Illness: 84-year-old female with history of dementia, MDR UTIs/bacteremia and April 2024 presents to the emergency department with chief complaint of altered mental status. Patient does have underlying advanced dementia and is baseline oriented x 0-1 but usually sits up, is awake, speaking and feeding herself. This morning patient has been very lethargic, frequently sleeping and saying atypical things for her per daughter at bedside. Patient was evaluated in the emergency department her labs are significant for creatinine of 1.05 white blood cell count 10.5 UA with 500 leuk esterase, greater than 50 white blood cells, 20-50 bacteria, 2+ nitrites. Back in April patient had E. coli ESBL UTI and E. coli bacteremia for which she was given IV meropenem. Concern for MDR UTI patient will be started on meropenem, blood cultures will be obtained and she will be admitted for further management. Allergies morphine Allergy (Verified 04/24/24 21:45) Hives/Rash Penicillins Allergy (Verified 04/24/24 21:45) Itching/Hives/Rash egg Adverse Reaction (Verified 04/25/24 07:13) Rash Home Medications: Amlodipine Besylate 10 mg PO DAILY 04/26/24 Baclofen 10 mg PO TID PRN 04/26/24 Citalopram Hydrobromide [Celexa] 20 mg PO DAILY 04/26/24 Clopidogrel Bisulfate [Plavix] 75 mg PO DAILY 04/26/24 Codeine/APAP [Tylenol #3*] 1 tab PO BEDTIME 04/26/24 Dicyclomine HCl 10 mg PO BID 04/26/24 Donepezil HCl 10 mg PO BEDTIME 04/26/24 Lisinopril [Zestril] 40 mg PO DAILY 04/26/24 Loperamide [Imodium*] 2 mg PO Q6HP PRN 04/26/24 Melatonin/Pyridoxine [Melatonin 5 mg Tablet] 2 each PO BEDTIME PRN 04/26/24 Memantine HCl [Memantine HCl ER] 14 mg PO BEDTIME 04/26/24 Metformin ER [Glucophage ER*] 1,000 mg PO DAILY 04/26/24 Multivit-Min/Iron/Folic Acid/K [Multi-Day Plus Minerals Tablet] 1 each PO DAILY 04/26/24 Omeprazole 20 mg PO DAILY 04/26/24 clonazePAM [Clonazepam] 0.25 mg PO TID PRN 04/26/24 glipiZIDE [Glipizide] 10 mg PO DAILY 04/26/24 Meropenem [Merrem*] 1 gm IV Q8H #21 vial 04/28/24 - Past Medical/Surgical History -: Dementia -: MDR UTI -: Hip surgery Psychosocial/ Personal History: Lives at [facility] - Social History Place of Residence: [facility] Review of Systems is unable to be obtained Physical Examination - Physical Exam General: Other (drowsy) HEENT: Atraumatic, PERRLA, Mucous membr. moist/pink, EOMI, Sclerae nonicteric Neck: Supple, 2+ carotid pulse no bruit Respiratory: Clear to auscultation bilaterally, Normal air movement Cardiovascular: Regular rate/rhythm, Normal S1 S2 Gastrointestinal: Normal bowel sounds, No tenderness Musculoskeletal: No tenderness Integumentary: No rashes Neurological: Other (drowsy, awakens to physcial or verbal stimulus ) - Studies Laboratory Data (last 24 hrs) 07/22/24 07/22/24 14:25 14:25 WBC 10.50 Hgb 13.7 Hct 43.1 Plt Count 351 Sodium 137 Potassium 3.9 BUN 18 Creatinine 1.05 H Glucose 139 H Total Bilirubin 0.3 AST 39 H ALT 32 Alkaline Phosphatase 107 Assessment and Plan - Plan Assessment: UTIhistory of MDR UTI/bacteremia Metabolic encephalopathy secondary to above Advanced dementia Plan: UTIhistory of MDR UTI/bacteremia Metabolic encephalopathy secondary to above Will start empirically on meropenem given recent E. coli ESBL UTI/bacteremia in May Obtaining blood and urine cultures Does not currently meet sepsis criteria Continue supportive care/IV antibiotics and await cultures Advanced dementia Continue home medications when verified Speech eval DVT PPX:Lovenox Code status:Full Discharge Plan: Home Plan to discharge in: Greater than 2 days - Advance Directives Does patient have a Living Will: No Does patient have a Durable POA for Healthcare: No - Code Status/Comfort Care Code Status Assessed: Yes (Full code) Time Spent Managing Pts Care (In Minutes): 65
[2024-07-22] MEDS ORDERED: NA CHLORIDE 0.9% 100 ML ONE (17:59)
[2024-07-22] MEDS ORDERED: Meropenem 1000 MG/VIAL IV ONE (17:59)
[2024-07-22 20:15] LABS: PT Prothrombin Time 12.1 SECONDS (9.4-12.5); PTT, Activated Partial Thromb 34.9 SECONDS (24.3-36.9); Protime INR 1.15
[2024-07-22 20:16] LABS: Albumin/Globulin Ratio 0.8 (1.1-1.8); Anion Gap 6.9 mEq/L (5.0-15.0); Bilirubin Total 0.2 mg/dL (0.2-1.0); Potassium 3.9 mEq/L (3.5-5.1)
[2024-07-22] MEDS ORDERED: ONDANSETRON 4 MG/2 ML VIAL IV PRN (21:48)
[2024-07-22] MEDS: INSULIN REGULAR (HUMAN) 100 UNIT/ML SQ SCH (21:48)
[2024-07-22] MEDS ORDERED: ACETAMINOPHEN 325 MG TABLET PO PRN ×2 (21:48→22:58)
[2024-07-22] MEDS: NA CHLORIDE 0.9% 1,000 ML IV SCH (22:44)
[2024-07-22] MEDS ORDERED: LOPERAMIDE HCL 2 MG CAPSULE PO PRN (22:58)
[2024-07-22] MEDS ORDERED: PYRIDOXINE PO PRN ×2 (22:58→23:39)
[2024-07-22] MEDS ORDERED: MAGNES/ALUMIN/SIMET 30ML UCUP PO PRN (22:58)
[2024-07-22] MEDS ORDERED: LACTULOSE 20 GM/30 ML UCUP PO PRN (22:58)
[2024-07-22] MEDS ORDERED: MELATONIN PO PRN ×2 (22:58→23:39)
[2024-07-22] MEDS ORDERED: BACLOFEN 10 MG TAB PO PRN (22:58)
[2024-07-23] MEDS: Meropenem 1,000 MG in NA CHLORIDE 0.9% 100 ML IV SCH (04:22)
[2024-07-23 04:42] LABS: Absolute Basophils 0.1 K/uL (0-0.5); Absolute Eosinophils 0.3 K/uL (0-0.5); Absolute Lymphocytes (CBC) 1.3 K/uL (0.7-4.9); Absolute Monocytes 0.7 K/uL (0.1-1.3); Absolute Neutrophil 8.3 K/uL (1.8-8.0); Basophils % 0.9 % (0-1.3); Eosinophils % 2.5 % (0-4.4); Hematocrit 39.2 % (36.0-45.0); Hemoglobin 12.8 g/dL (12.0-15.0); Lymphocytes % 11.9 % (15.3-44.8); MCH 27.6 pg (27.0-35.0); MCHC 32.7 g/dL (32.0-36.0); MCV 84.4 fL (80-100); MPV 7.2 fL (7.6-11.3); Monocytes % 6.9 % (3.3-12.3); Neutrophils % 77.8 % (41.7-73.7); Platelets 352 thou/uL (152-406); RBC Red Blood Cell Count 4.65 M/uL (3.86-4.86); Red Cell Distribution Width 16.9 % (12.1-15.2)
[2024-07-23 05:01] LABS: Albumin 3.4 g/dL (3.4-5.0); Albumin/Globulin Ratio 0.8 (1.1-1.8); Anion Gap 9.1 mEq/L (5.0-15.0); Bilirubin Total 0.3 mg/dL (0.2-1.0); Globulin 4.5 g/dL (2.3-3.5); Potassium 4.1 mEq/L (3.5-5.1); Protein, Total 7.9 g/dL (6.4-8.2); Thyroid Stimulating Hormone 2.59 uIU/mL (0.358-3.740)
[2024-07-23] MEDS: HYDRALAZINE HCL 20 MG/ML VIAL IV PRN (05:16)
[2024-07-23] MEDS: PANTOPRAZOLE 40MG TABLET PO SCH (05:23)
[2024-07-23] MEDS ORDERED: BIFIDO LONGUM PO SCH (09:00)
[2024-07-23] MEDS ORDERED: ACIDOPHILUS PO SCH (09:00)
[2024-07-23] MEDS: ENOXAPARIN 40 MG/0.4 ML SQ SCH (09:27)
[2024-07-23] MEDS: CLOPIDOGREL 75 MG TABLET PO SCH (09:27)
[2024-07-23] MEDS: MULTIVITAMIN TAB PO SCH (09:28)
[2024-07-23] MEDS: DICYCLOMINE HCL 10 MG CAP PO SCH (09:28)
[2024-07-23] MEDS: CITALOPRAM 10 MG TABLET PO SCH (09:28)
[2024-07-23] MEDS: AMLODIPINE 10 MG TAB PO SCH (09:28)
[2024-07-23] MEDS: lisinopriL 20 MG TAB PO SCH (09:28)
[2024-07-23] MEDS: MEMANTINE HCL 10 MG TABLET PO SCH (09:29)
[2024-07-23] MEDS: LACTOBACILLUS/ACIDOPHILUS TAB PO SCH (09:29)
--- NOTE | 2024-07-23 11:39 | P.PN ---
Date of Service: 07/23/24 Subjective: Still drowsy/lethargic No acute events overnight ROS: 10 point ROS as noted above, otherwise negative Physical exam GEN: Drowsy, confused, NAD HEENT: Normal conjunctiva, sclera anicteric CV: Regular rate and rhythm, no edema Pulm: Nonlabored respirations on room air ABD: Soft, nontender, nondistended MSK: No joint tenderness Integumentary: No rashes Neuro: Normal speech, normal affect Vitals reviewed Assessment: UTIhistory of MDR UTI/bacteremia Metabolic encephalopathy secondary to above Advanced dementia Plan: UTIhistory of MDR UTI/bacteremia Metabolic encephalopathy secondary to above Will start empirically on meropenem given recent E. coli ESBL UTI/bacteremia in May Obtaining blood and urine cultures-pending Does not currently meet sepsis criteria Continue supportive care/IV antibiotics and await cultures Advanced dementia Continue home medications when verified Speech eval DVT PPX:Lovenox Code status:Full Discharge Plan: Home Plan to discharge in: Greater than 2 days Time Spent Managing Pts Care (In Minutes): 35
[2024-07-23] MEDS: CARBOXYMETHYLCELLULOSE SODIUM 0.5% 15 ML OPTH SCH (12:07)
[2024-07-23] MEDS: ACETAMINOPHEN 325 MG TABLET PO PRN (13:59)
[2024-07-23] MEDS: LIDOCAINE 4% PATCH TD SCH (15:10)
[2024-07-23] MEDS: DONEPEZIL HCL 5 MG TAB PO SCH (20:40)
[2024-07-23] MEDS: MELATONIN 5 MG TABLET PO SCH (20:42)
[2024-07-23] MEDS: clonazePAM 0.5 MG TAB PO PRN (20:48)
[2024-07-23] MEDS: CODEINE 30MG/APAP 300MG TAB PO SCH (21:00)
[2024-07-23] MEDS ORDERED: MEMANTINE HCL 14 MG PO SCH (21:00)
[2024-07-24 05:35] LABS: Absolute Basophils 0.1 K/uL (0-0.5); Absolute Eosinophils 0.2 K/uL (0-0.5); Absolute Monocytes 1.2 K/uL (0.1-1.3); Basophils % 0.6 % (0-1.3); Eosinophils % 1.7 % (0-4.4); Hematocrit 33.8 % (36.0-45.0); Hemoglobin 11.1 g/dL (12.0-15.0); Lymphocytes % 17.3 % (15.3-44.8); MCHC 32.8 g/dL (32.0-36.0); MCV 82.4 fL (80-100); MPV 7.3 fL (7.6-11.3); Monocytes % 10.5 % (3.3-12.3); Neutrophils % 69.9 % (41.7-73.7); Platelets 294 thou/uL (152-406); Red Cell Distribution Width 16.8 % (12.1-15.2)
[2024-07-24 05:44] LABS: Albumin 2.7 g/dL (3.4-5.0); Albumin/Globulin Ratio 0.7 (1.1-1.8); Anion Gap 10.2 mEq/L (5.0-15.0); Bilirubin Total 0.5 mg/dL (0.2-1.0); Globulin 4.1 g/dL (2.3-3.5); Potassium 3.2 mEq/L (3.5-5.1); Protein, Total 6.8 g/dL (6.4-8.2)
[2024-07-24] MEDS: POTASSIUM 25 MEQ EFFERV TAB PO ONE (08:37)
--- NOTE | 2024-07-24 09:08 | P.PN ---
Date of Service: 07/24/24 Subjective: Mental status significantly improved Complains of right upper arm pain No acute events overnight ROS: 10 point ROS as noted above, otherwise negative Physical exam GEN: Alert, oriented x 1-2 HEENT: Normal conjunctiva, sclera anicteric CV: Regular rate and rhythm, no edema Pulm: Nonlabored respirations on room air ABD: Soft, nontender, nondistended MSK: No joint tenderness Integumentary: No rashes Neuro: Normal speech, normal affect Vitals reviewed Assessment: UTIhistory of MDR UTI/bacteremia Metabolic encephalopathy secondary to above Advanced dementia Plan: UTIhistory of MDR UTI/bacteremia Metabolic encephalopathy secondary to above Started empirically on meropenem given recent E. coli ESBL UTI/bacteremia in May Urine culture does show E. coli ESBL Will consult ID given recent E. coli ESBL UTI in May Advanced dementia Continue home medications when verified Speech eval DVT PPX:Lovenox Code status:Full Discharge Plan: Home Plan to discharge in: Greater than 2 days Time Spent Managing Pts Care (In Minutes): 35
--- NOTE | 2024-07-24 10:41 | RAD REPORT ---
EXAMINATION: US RIGHT UPPER EXTREMITY VENOUS DOPPLER CLINICAL INDICATION: right arm pain after IV RIGHT TECHNIQUE: Complete bilateral duplex sonography of the RIGHT upper extremity veins was performed. The examination included compression for vein patency, color Doppler imaging and flow augmentation in response to distal compression of the internal jugular, brachiocephalic, subclavian, axillary, brachi al, radial, ulnar, cephalic and basilic veins. COMPARISON: No prior exam. FINDINGS: Duplex sonography testing of the veins of the RIGHT upper extremity was performed. Color flow imaging shows all veins to be compressible with [id number] color filling. Pulsatile and phasic flow is present within all upper extremity deep and superficial veins examined. Indeterminate 3 cm hypoechoic fluid collection antecubital fossa, may be a hematoma. IMPRESSION: There is no deep vein or superficial vein thrombosis.
--- NOTE | 2024-07-24 11:56 | EKG ---
Test Date: 2024-07-22 Test Time: 14:13:28 District Administrative Assistant: KATERINE MEASUREMENT RESULTS: Intervals: Rate: 83 SD: 136 QRSD: 70 QT: 394 QTc: 462 Universal: P: 61 SD: 136 QRS: 59 T: -14 INTERPRETIVE STATEMENTS: Normal sinus rhythm Nonspecific ST and T wave abnormality Abnormal ECG Compared to ECG 04/26/2024 21:04:35 Atrial fibrillation no longer present Ventricular premature complex(es) no longer present ST (T wave) deviation still present Electronically Signed On 07-24-24 11:55:20 CLARIFICATION OPERATOR by Preston Parsons
[2024-07-24] MEDS: LIDOCAINE 4% PATCH TOP ONE (16:47)
[2024-07-25 01:40] VITALS: O2SAT 96; BMI 21.4
[2024-07-25 04:39] LABS: Absolute Basophils 0.1 K/uL (0-0.5); Absolute Eosinophils 0.2 K/uL (0-0.5); Absolute Lymphocytes (CBC) 1.7 K/uL (0.7-4.9); Absolute Monocytes 1.4 K/uL (0.1-1.3); Absolute Neutrophil 6.6 K/uL (1.8-8.0); Basophils % 0.8 % (0-1.3); Hematocrit 34.1 % (36.0-45.0); Hemoglobin 11.3 g/dL (12.0-15.0); Lymphocytes % 17.2 % (15.3-44.8); MCH 27.4 pg (27.0-35.0); MCV 82.8 fL (80-100); MPV 7.2 fL (7.6-11.3); Monocytes % 14.1 % (3.3-12.3); Neutrophils % 65.9 % (41.7-73.7); Platelets 287 thou/uL (152-406); RBC Red Blood Cell Count 4.12 M/uL (3.86-4.86); Red Cell Distribution Width 16.6 % (12.1-15.2)
[2024-07-25 04:55] LABS: Albumin/Globulin Ratio 0.7 (1.1-1.8); Anion Gap 4.2 mEq/L (5.0-15.0); Bilirubin Total 0.5 mg/dL (0.2-1.0); Globulin 4.3 g/dL (2.3-3.5); Potassium 3.2 mEq/L (3.5-5.1); Protein, Total 7.3 g/dL (6.4-8.2)
[2024-07-25] MEDS: POTASSIUM CL SA 10 MEQ TAB PO ONE (09:31)
--- NOTE | 2024-07-25 14:30 | P.PN ---
Date of Service: 07/25/24 Subjective: Mental status significantly improved No acute events overnight ROS: 10 point ROS as noted above, otherwise negative Physical exam GEN: Alert, oriented x 1-2 HEENT: Normal conjunctiva, sclera anicteric CV: Regular rate and rhythm, no edema Pulm: Nonlabored respirations on room air ABD: Soft, nontender, nondistended MSK: No joint tenderness Integumentary: No rashes Neuro: Normal speech, normal affect Vitals reviewed Assessment: UTIhistory of MDR UTI/bacteremia Metabolic encephalopathy secondary to above Advanced dementia Plan: UTIhistory of MDR UTI/bacteremia Metabolic encephalopathy secondary to above Started empirically on meropenem given recent E. coli ESBL UTI/bacteremia in May Urine culture does show E. coli ESBL Total of 7 days of IV Merrem ending 07/29 Order for midline in place Anticipate DC to SNF once midline placed on antibiotics arranged Advanced dementia Continue home medications when verified Speech eval DVT PPX:Lovenox Code status:Full Discharge Plan: Home Plan to discharge in: Greater than 2 days Time Spent Managing Pts Care (In Minutes): 35
--- NOTE | 2024-07-25 18:14 | CON ---
History Of Present Illness: This is an 84-year-old female, I was consulted for urosepsis secondary t o E coli ESBL. The patient has significant past medical history of dementia, hip fracture x2, MDR UT I and bacteremia in April 2024, coming in with altered mental status. Urinalysis positive for pyur ia and hematuria. The patient is not a good historian. Most of the history was obtained through [facility] staff and medical records. Past Medical History: As per HPI. Social History: Nonsmoker, nondrinker. Family History: Noncontributory. Medications: Meropenem. See MARs for other medications. Allergies: PENICILLIN, MORPHINE, AND EGGS. Review of Systems: Unable to obtain. Physical Examination: General: This is an 84-year-old female, lying in bed, not in any acute cardiopulmonary distress. Vital Signs: Temperature 97.8, pulse 100, respirations 16, blood pressure 171/89. HEENT: Unremarkable. Neck: Supple. Lungs: Basal crackles. Heart: S1, S2. Regular. Abdomen: Soft, nontender. Bowel sounds present. Extremities: Trace edema. Laboratory Data: Shows WBC 10, down from 11.4, hemoglobin 11.3, platelets are 287. Chemistry shows BUN of 9, creatinine 0.6, albumin level is 3. Micro data shows E coli ESBL with more than 100,000 co lonies per mL ESBL. Blood cultures are negative to date. Chest x-ray negative for any infiltrates. CT head no acute intracranial abnormalities noted. Doppler study shows no deep venous thrombosis. 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 Continue antibiotic for total of 7 da ys. Continue supportive care and monitor signs of infection with WBC and fever trends. Thank you for consult. NF/MODL Voice ID: [id number] Report ID: [id number]
[2024-07-26 05:58] LABS: Absolute Eosinophils 0.2 K/uL (0-0.5); Absolute Lymphocytes (CBC) 1.9 K/uL (0.7-4.9); Absolute Monocytes 1.5 K/uL (0.1-1.3); Absolute Neutrophil 7.7 K/uL (1.8-8.0); Basophils % 0.4 % (0-1.3); Eosinophils % 1.4 % (0-4.4); Hematocrit 30.4 % (36.0-45.0); Lymphocytes % 16.9 % (15.3-44.8); MCH 27.2 pg (27.0-35.0); MCHC 32.8 g/dL (32.0-36.0); MCV 82.7 fL (80-100); MPV 7.5 fL (7.6-11.3); Monocytes % 13.5 % (3.3-12.3); Neutrophils % 67.8 % (41.7-73.7); Platelets 288 thou/uL (152-406); RBC Red Blood Cell Count 3.68 M/uL (3.86-4.86); Red Cell Distribution Width 16.5 % (12.1-15.2)
[2024-07-26 06:33] LABS: Albumin 2.3 g/dL (3.4-5.0); Albumin/Globulin Ratio 0.6 (1.1-1.8); Anion Gap 10.5 mEq/L (5.0-15.0); Bilirubin Total 0.5 mg/dL (0.2-1.0); Globulin 3.9 g/dL (2.3-3.5); Potassium 3.5 mEq/L (3.5-5.1); Protein, Total 6.2 g/dL (6.4-8.2)
[2024-07-26 08:10] VITALS: BP 145/69; TEMP 98.5
--- NOTE | 2024-07-26 08:42 | P.DS ---
Admission Date: 07/22/24 Discharge Date: 07/26/24 Disposition: TRANSFER TO [facility] Discharge Condition: GOOD Reason for Admission: AMS, UTI Brief History of Present Illness: 84-year-old female with history of dementia, MDR UTIs/bacteremia and April 2024 presents to the emergency department with chief complaint of altered mental status. Patient does have underlying advanced dementia and is baseline oriented x 0-1 but usually sits up, is awake, speaking and feeding herself. This morning patient has been very lethargic, frequently sleeping and saying atypical things for her per daughter at bedside. Patient was evaluated in the emergency department her labs are significant for creatinine of 1.05 white blood cell count 10.5 UA with 500 leuk esterase, greater than 50 white blood cells, 20-50 bacteria, 2+ nitrites. Back in April patient had E. coli ESBL UTI and E. coli bacteremia for which she was given IV meropenem. Concern for MDR UTI patient will be started on meropenem, blood cultures will be obtained and she will be admitted for further management. Hospital Course: Assessment: UTIhistory of MDR UTI/bacteremia Metabolic encephalopathy secondary to above Advanced dementia Patient was admitted to the hospital for metabolic encephalopathy, UTI. She was found to have E. coli ESBL UTI. She was started on IV Merrem on admission due to her previous episode of ESBL UTI. She has completed 2-1/2 days of treatment with the IV Merrem, case was discussed with infectious disease who recommends a total of 7 days of IV Merrem. Midline catheter to be placed and antibiotics will be arranged to be finished at [facility] where [facility] a [facility]. Her mental status has improved during her hospital stay, she has been tolerating her diet, is awake and alert and pleasantly confused. Her home medications should be continued as previous It is recommended that she follow-up with urology outpatient to determine if there is anything that can be done about the recurrent UTIs. Information for Dr. Young-urology provided in discharge. Vital Signs/Physical Exam: Temp Pulse Resp BP Pulse Ox 98.5 F 73 16 145/69 H 91 07/26/24 08:00 07/26/24 08:00 07/26/24 08:00 07/26/24 08:00 07/26/24 08:00 General: Alert, In no apparent distress, Oriented x1 HEENT: Atraumatic, PERRLA, EOMI Neck: Supple, JVD not distended Respiratory: Clear to auscultation bilaterally, Normal air movement Cardiovascular: Regular rate/rhythm, Normal S1 S2 Gastrointestinal: Normal bowel sounds, No tenderness Musculoskeletal: No tenderness Integumentary: No rashes Neurological: Normal speech Laboratory Data at Discharge: WBC 11.30 thou/uL (4.3-10.9) H 07/26/24 05:00 Hgb 10.0 g/dL (12.0-15.0) L D 07/26/24 05:00 Hct 30.4 % (36.0-45.0) L 07/26/24 05:00 Plt Count 288 thou/uL (152-406) 07/26/24 05:00 PT 12.1 SECONDS (9.4-12.5) 07/22/24 19:30 INR 1.15 07/22/24 19:30 APTT 34.9 SECONDS (24.3-36.9) 07/22/24 19:30 Sodium 132 mEq/L (136-145) L 07/26/24 05:00 Potassium 3.5 mEq/L (3.5-5.1) 07/26/24 05:00 BUN 13 mg/dL (7-18) 07/26/24 05:00 Creatinine 0.73 mg/dL (0.55-1.02) 07/26/24 05:00 Glucose 136 mg/dL (74-106) H 07/26/24 05:00 Total Bilirubin 0.5 mg/dL (0.2-1.0) 07/26/24 05:00 AST 34 U/L (15-37) 07/26/24 05:00 ALT 32 U/L (13-56) 07/26/24 05:00 Alkaline Phosphatase 80 U/L (45-117) 07/26/24 05:00 Home Medications: Amlodipine Besylate 10 mg PO DAILY 04/26/24 Baclofen 10 mg PO TID 04/26/24 Citalopram Hydrobromide [Celexa] 20 mg PO DAILY 04/26/24 Clopidogrel Bisulfate [Plavix] 75 mg PO DAILY 04/26/24 Codeine/APAP [Tylenol #3*] 1 tab PO BEDTIME 04/26/24 Dicyclomine HCl 10 mg PO BID 04/26/24 Donepezil HCl 10 mg PO BEDTIME 04/26/24 Lisinopril [Zestril] 40 mg PO DAILY 04/26/24 Loperamide [Imodium*] 2 mg PO Q6HP PRN 04/26/24 Memantine HCl [Memantine HCl ER] 14 mg PO BEDTIME 04/26/24 Multivit-Min/Iron/Folic Acid/K [Multi-Day Plus Minerals Tablet] 1 each PO DAILY 04/26/24 Omeprazole 20 mg PO DAILY 04/26/24 clonazePAM [Clonazepam] 0.25 mg PO TID 04/26/24 glipiZIDE [Glipizide] 10 mg PO DAILY 04/26/24 Acetaminophen 325 mg PO Q6HR PRN 07/22/24 Carboxymethylcellulose Sodium [Artificial Tears] 2 drops OP BID 07/22/24 Clotrimazole [Lotrimin 1% Cream*] 1 appl TOP BEDTIME 07/22/24 Ketorolac Opth [Acular 0.5% Opth Drops*] 1 drop LEFT EYE QID 07/22/24 Lactobacillus Acidophilus [Probiotic] 2 each PO DAILY 07/22/24 Lactulose 30 ml PO Q6HR PRN 07/22/24 Lidocaine 4% Patch [Lidoderm 5% Patch*] 1 patch TP DIRECTED 07/22/24 Mag Hydrox/Al Hydrox/Simeth [Maalox Suspension] 30 ml PO Q6HR PRN 07/22/24 Melatonin 10 mg PO BEDTIME 07/22/24 Physician Discharge Instructions: Patient was admitted to the hospital for metabolic encephalopathy, UTI. She was found to have E. coli ESBL UTI. She was started on IV Merrem on admission due to her previous episode of ESBL UTI. She has completed 2-1/2 days of treatment with the IV Merrem, case was discussed with infectious disease who recommends a total of 7 days of IV Merrem. Midline catheter to be placed and antibiotics will be arranged to be finished at [facility] where patient is a resident. Her mental status has improved during her hospital stay, she has been tolerating her diet, is awake and alert and pleasantly confused. Her home medications should be continued as previous It is recommended that she follow-up with urology outpatient to determine if there is anything that can be done about the recurrent UTIs. Information for Dr. Young-urology provided in discharge. Diet: soft Activity: Bedrest Followup: Moshe Young [ACTIVE - CAN ADMIT] - 1-2 Weeks Anam Booker MD [Primary Care Provider] - 1 Week Time spent managing pt's care (in minutes): 37
[2024-07-26] MEDS: POTASSIUM CL SA 10 MEQ TAB PO ONE (08:58)
== END 2024-07-26 11:45 | DRG 689 ==
LOC: ER 13:27 → ERHOLD 17:14 → 2ND 19:34
PROVIDERS: ADMIT Hospitalist; ATTEND Hospitalist
DX: N39.0 Urinary tract infection, site not specified (principal); G93.41 Metabolic encephalopathy; R78.81 Bacteremia; Z16.12 Extended spectrum beta lactamase (ESBL) resistance; I10 Essential (primary) hypertension; E11.9 Type 2 diabetes mellitus without complications; K21.9 Gastro-esophageal reflux disease without esophagitis; I25.10 Atherosclerotic heart disease of native coronary artery without angina pectoris; G30.9 Alzheimer's disease, unspecified; F02.80 Dementia in other diseases classified elsewhere, unspecified severity, without behavioral disturbance, psychotic disturbance, mood disturbance, and anxiety; B96.20 Unspecified Escherichia coli [E. coli] as the cause of diseases classified elsewhere; R31.9 Hematuria, unspecified; Z88.0 Allergy status to penicillin; Z88.5 Allergy status to narcotic agent; Z91.012 Allergy to eggs; Z79.02 Long term (current) use of antithrombotics/antiplatelets; Z79.84 Long term (current) use of oral hypoglycemic drugs; Z79.899 Other long term (current) drug therapy
CPT/HCPCS: 36415; 51702; 70450; 71045; 80048; 80053; 80076; 80307; 81001; 82947; 83605; 84439; 84443; 84484; 85025; 85610; 85730; 87040; 87077; 87086; 87088; 87186; 92526; 92610; 93005; 93971; 96374; 99285; J0360; J1650; J2003; J2185; J7030

== ENCOUNTER 2024-08-01 05:49 | Inpatient (IN) | payer OTHER ==
[2024-08-01] MEDS ORDERED: NA CHLORIDE 0.9% 500 ML ONE ×2 (06:34→08:02)
[2024-08-01 06:56] LABS: PT Prothrombin Time 12.7 SECONDS (9.4-12.5); PTT, Activated Partial Thromb 34.2 SECONDS (24.3-36.9); Protime INR 1.21
--- NOTE | 2024-08-01 06:57 | RAD REPORT ---
EXAMINATION: CT HEAD WITHOUT CONTRAST CLINICAL INDICATION: Female, 84 years old.AMS TECHNIQUE: Axial CT images from the skull base to the vertex without intravenous contrast. Coronal an d sagittal reformatted images were created from the data set. One or more of the following dose reduction techniques were used: Automated exposure control, adjustment of the mA and/or kV according to patient size, and/or iterative reconstruction. Unless otherwise specified, incidental findings do not require dedicated imaging follow-up. [id number]. COMPARISON: 07/22/2024 FINDINGS: INTRACRANIAL: No acute intracranial hemorrhage. No hydrocephalus. No mass effect or midline shift. Mo derate chronic small vessel ischemic changes. Moderate cerebral atrophy. VASCULATURE: No visualized abnormalities in the arteries or dural venous sinuses. SCALP/SKULL: No significant soft tissue or osseous abnormalities. SINUSES: The visualized paranasal sinuses and mastoid air cells are predominantly clear. IMPRESSION: No acute intracranial abnormality.
--- NOTE | 2024-08-01 06:57 | RAD REPORT ---
EXAM: Chest Single View HISTORY: AMS COMPARISON: 07/22/2024 FINDINGS: LUNGS/PLEURA: The lungs are clear. No pleural effusions or pneumothorax. No pulmonary edema. MEDIASTINUM: The mediastinal silhouette is within normal limits. CARDIAC: The cardiac silhouette is within normal limits. UPPER ABDOMEN: No significant abnormality. BONES: No acute abnormality. LINES/TUBES/OTHER: N/A IMPRESSION: No evidence of acute cardiopulmonary disease.
[2024-08-01 07:17] LABS: Absolute Basophils 0.1 K/uL (0-0.5); Absolute Eosinophils 0.2 K/uL (0-0.5); Absolute Lymphocytes (CBC) 1.6 K/uL (0.7-4.9); Absolute Monocytes 0.7 K/uL (0.1-1.3); Absolute Neutrophil 5.6 K/uL (1.8-8.0); Basophils % 0.8 % (0-1.3); Eosinophils % 2.8 % (0-4.4); Hematocrit 32.5 % (36.0-45.0); Hemoglobin 10.9 g/dL (12.0-15.0); MCH 27.9 pg (27.0-35.0); MCHC 33.4 g/dL (32.0-36.0); MCV 83.5 fL (80-100); MPV 6.9 fL (7.6-11.3); Monocytes % 8.7 % (3.3-12.3); Neutrophils % 67.7 % (41.7-73.7); Platelets 585 thou/uL (152-406); Red Cell Distribution Width 15.9 % (12.1-15.2)
[2024-08-01 07:19] LABS: Albumin 2.8 g/dL (3.4-5.0); Albumin/Globulin Ratio 0.6 (1.1-1.8); Anion Gap 8.3 mEq/L (5.0-15.0); Bilirubin Total 0.3 mg/dL (0.2-1.0); Globulin 4.8 g/dL (2.3-3.5); Potassium 3.3 mEq/L (3.5-5.1); Protein, Total 7.6 g/dL (6.4-8.2)
[2024-08-01 07:46] LABS: Specific Gravity 1.016 (1.005-1.030); Sqamous Epithelial None Seen /HPF (None Seen); Transitional Epithelial <5 /HPF (None Seen); Urine Bacteria None Seen /HPF (<20); Urine Bilirubin NEGATIVE (Negative); Urine Blood Negative (Negative); Urine Clarity Turbid (Clear); Urine Color Light-Yellow (Yellow); Urine Culture Reflex Order REFLEXED; Urine Glucose NEGATIVE (Negative); Urine Ketones 1+ (Negative); Urine Microscopic Reflex YN ORDER UMIC; Urine Mucus Slight /HPF (None Seen); Urine Nitrite NEGATIVE (Negative); Urine Protein TRACE (Negative); Urine RBC <5 /HPF (None Seen); Urine Urobilinogen Normal (Normal)
--- NOTE | 2024-08-01 08:12 | EDPHYS ---
Physician Documentation [facility] Name: Libby Bosch Age: 84 yrs Sex: Female : 1940 Arrival Date: 08/01/2024 Time: 05:49 Bed 5 Private MD: ED Physician Umang Adorno HPI: 08/01 05:51 This 84 yrs old Female presents to ER via Unassigned with complaints of ams. rn 05:51 The patient presents with decreased mental status, decreased responsiveness. Possible rn causes: unknown. Current symptoms: In the emergency department the patient's symptoms are unchanged from the initial presentation. It is unknown whether or not the patient has had similar symptoms in the past. Patient brought in by EMS, per report patient showed decreased responsiveness and altered mental status this morning when they were medicating her. No fall or trauma. Patient has PICC line and she is being treated for urinary tract infection. No known fever. No vomiting or diarrhea per report. Patient has dementia at baseline, [facility] states that she is normally a "screamer", and this morning she was not screaming so they called 911.. Historical: - Allergies: 05:55 Morphine; vc1 05:55 PENICILLINS; vc1 - PMHx: 05:55 Alzheimer's disease; Anxiety; coronary atherosclerosis; Dementia; depressive disorder; vc1 diabetes mellitus; GERD; Hypertensive disorder; - PSHx: 05:55 None; vc1 - Immunization history:: Adult Immunizations unknown. - Infectious Disease History:: Denies. - Family history:: not pertinent. - Social history:: Smoking status: unknown. - Hospitalizations: : No recent hospitalization is reported. ROS: 05:51 Unable to obtain ROS due to altered mental status, baseline dementia, rn Exam: 05:51 Constitutional: This is a well developed, well nourished patient who is somnolent, rn awakens to voice Head/Face: Normocephalic, atraumatic. ENT: Dry mucous membranes Cardiovascular: Regular rate and rhythm. No pulse deficits. Respiratory: No increased work of breathing, no retractions or nasal flaring. Abdomen/GI: Soft, non-tender Skin: No signs of cellulitis. MS/ Extremity: Pulses equal, no cyanosis. Neuro: Somnolent, awakens to voice. Weak all over without focal findings. Withdraws bilateral upper extremities from pain Vital Signs: 05:45 BP 126 / 67; Pulse 72; Resp 15; Pulse Ox 98% on R/A; al5 05:50 BP 141 / 70; Pulse 73; Resp 16; Temp 98.6(A); Pulse Ox 97% on R/A; Weight 52.62 kg (M); al5 Height 5 ft. 3 in. ; 06:28 BP 141 / 66; Pulse 71; Resp 15; Pulse Ox 99% on R/A; al5 06:30 BP 143 / 70; Pulse 72; Resp 14; Pulse Ox 99% on R/A; al5 07:35 BP 150 / 67; Pulse 76; Resp 16; Pulse Ox 100% ; ko1 05:50 Body Mass Index 20.55 (52.62 kg, 160.02 cm) al5 MDM: 05:51 Medical Screening Exam initiated rn 07:32 Transition of care: After a detail discussion of the patient's case, care is rn transferred to Umang Adorno MD. 08:12 Differential Diagnosis: UTI, electrolyte disturbance, ACS, intracranial hemorrhage, rt dehydration. Data reviewed: vital signs, nurses notes, lab test result(s), EKG, radiologic studies. Consideration of Admission/Observation Patient was admitted/placed on observation. Management of patient was discussed with the following: Hospitalist: Agrees to admit. I considered the following discharge prescriptions or medication management in the emergency department Medications were administered in the Emergency Department. See MAR. Independent interpretation of the following test(s) in the Emergency Department CT Scan: My interpretation is No intracranial hemorrhage syndrome interpretation of CT scan just. Care significantly affected by the following chronic conditions: Dementia. Counseling: I had a detailed discussion with the patient and/or guardian regarding the historical points, exam findings, and any diagnostic results supporting the discharge/admit diagnosis, lab results, radiology results, the need for further work-up and treatment in the hospital. Response to treatment: There is no appreciated change of the patient's symptoms at this time. 08/01 05:51 Order name: Blood Culture Adult (2) rn 08/01 05:51 Order name: CBC with Diff; Complete Time: 07:48 rn 08/01 05:51 Order name: CMP; Complete Time: 07:48 rn 08/01 05:51 Order name: Lactate w/ 2H reflex if indic.; Complete Time: 07:48 rn 08/01 05:51 Order name: Protime (+inr); Complete Time: 06:58 rn 08/01 05:51 Order name: Ptt, Activated; Complete Time: 06:58 rn 08/01 05:51 Order name: Urinalysis w/ reflexes; Complete Time: 07:48 rn 08/01 07:50 Order name: Urine Culture EDMS 08/01 08:14 Order name: Basic Metabolic Panel EDMS 08/01 09:03 Order name: ABG ko1 08/01 09:12 Order name: Urinalysis w/ reflexes EDMS 08/01 09:12 Order name: CBC with Automated Diff EDMS 08/01 09:12 Order name: CBC with Automated Diff EDMS 08/01 09:12 Order name: CBC with Automated Diff EDMS 08/01 09:12 Order name: CBC with Automated Diff EDMS 08/01 09:12 Order name: CBC with Automated Diff EDMS 08/01 09:12 Order name: Comprehensive Metabolic Panel EDMS 08/01 09:12 Order name: Comprehensive Metabolic Panel EDMS 08/01 09:12 Order name: Comprehensive Metabolic Panel EDMS 08/01 09:12 Order name: Comprehensive Metabolic Panel EDMS 08/01 09:12 Order name: Comprehensive Metabolic Panel EDMS 08/01 09:12 Order name: Magnesium EDMS 08/01 09:12 Order name: Magnesium EDMS 08/01 09:12 Order name: Magnesium EDMS 08/01 09:12 Order name: Magnesium EDMS 08/01 09:12 Order name: Magnesium EDMS 08/01 09:12 Order name: Phosphorus EDMS 08/01 09:12 Order name: Phosphorus EDMS 08/01 09:12 Order name: Phosphorus EDMS 08/01 09:13 Order name: Phosphorus EDMS 08/01 09:13 Order name: Phosphorus EDMS 08/01 05:51 Order name: Chest Single View XRAY; Complete Time: 06:58 rn 08/01 05:51 Order name: CT Head Brain wo Cont; Complete Time: 06:58 rn 08/01 09:24 Order name: Brain Wo Cont EDMS 08/01 05:51 Order name: Cardiac monitoring; Complete Time: 06:37 rn 08/01 05:51 Order name: EKG - Nurse/Tech; Complete Time: 06:40 rn 08/01 05:51 Order name: IV Saline Lock - Large Bore; Complete Time: 06:28 rn 08/01 05:51 Order name: Labs collected and sent; Complete Time: 06:28 rn 08/01 05:51 Order name: O2 Per Protocol; Complete Time: 06:28 rn 08/01 05:51 Order name: O2 Sat Monitoring; Complete Time: 06:28 rn 08/01 05:51 Order name: Vital Signs; Complete Time: 06:28 rn Administered Medications: 06:41 Drug: NS 0.9% IV 500 ml 500 ml IV at 1 bolus once; to be given as a bolus over 30 al5 minutes Volume: 500 ml; Route: IV; Rate: 1 bolus; Site: left hand; 07:10 Follow up: Response: No adverse reaction; IV Status: Completed infusion; IV Intake: ko1 500ml 08:06 Drug: NS 0.9% IV 500 ml 500 ml IV at 1 bolus once; to be given as a bolus over 30 ko1 minutes Volume: 500 ml; Route: IV; Rate: 1 bolus; Site: left hand; 09:04 Follow up: Response: No adverse reaction; IV Status: Completed infusion; IV Intake: ko1 500ml Disposition Summary: 08/01/24 08:11 Hospitalization Ordered Notes: Hospitalization Status: Inpatient Admission rt Provider: Steven Amaya rt Location: Telemetry/[facility] (Inpatient) rt Condition: Stable rt Problem: new rt Symptoms: are unchanged rt Bed/Room Type: Standard rt Room Assignment: 405(08/01/24 14:22) kb Diagnosis - Altered mental status, unspecified rt - Dehydration rt Forms: - Medication Reconciliation Form rt - SBAR form rt - Leadership Thank You Letter rt Signatures: Dispatcher [employer] EDTalita Lainez, RIB MATCHER AND FITTER-C RIB MATCHER AND FITTER-Ckb Ander Meadows MD MD rn Calcote, Vanessa RN RN vc1 Rebeca Finney RN RN ko1 Umang Adorno MD MD rt Ryann Timmons RN RN al5 Corrections: (The following items were deleted from the chart) 05:52 05:52 BLOOD CULTURE*+BA.LAB.BRZ ordered. EDMS EDMS 05:52 05:52 CBC+H.LAB.BRZ ordered. EDMS EDMS 05:52 05:52 COMPREHENSIVE METABOLIC PANEL+C.LAB.BRZ ordered. EDMS EDMS 05:52 05:52 LACTATE+C.LAB.BRZ ordered. EDMS EDMS 05:52 05:52 PROTIME (+INR)+COAG.LAB.BRZ ordered. EDMS EDMS 05:52 05:52 PTT, ACTIVATED+COAG.LAB.BRZ ordered. EDMS EDMS 05:52 05:52 Urinalysis+U.LAB.BRZ ordered. EDMS EDMS 05:52 05:52 Chest Single View+RAD.RAD.BRZ ordered. EDMS EDMS 05:52 05:52 Head Brain Wo Cont+CT.RAD.BRZ ordered. EDMS EDMS 05:54 05:51 Constitutional: This is a well developed, well nourished patient who is rn somnolent, awakens to voice Head/Face: Normocephalic, atraumatic. ENT: Dry mucous membranes Cardiovascular: Regular rate and rhythm. No pulse deficits. Respiratory: No increased work of breathing, no retractions or nasal flaring. Abdomen/GI: Soft, non-tender MS/ Extremity: Pulses equal, no cyanosis. Neuro: Somnolent, awakens to voice. Weak all over without focal findings. Withdraws bilateral upper extremities from pain rn 06:28 05:51 Accucheck ordered. rn al5 09:24 09:10 [employer] Orbits Wo Con ordered. EDMS EDMS 14:22 08:11 rt kb
--- NOTE | 2024-08-01 08:12 | ER ---
Nurse's Notes [facility] Name: Libby Bosch Age: 84 yrs Sex: Female : 1940 Arrival Date: 08/01/2024 Time: 05:49 Bed 5 Private MD: Diagnosis: Altered mental status, unspecified;Dehydration Presentation: 08/01 05:50 Chief complaint: EMS states: patient coming from [facility] for al5 unresponsiveness. patient nurse at facility states that she was able to take oral medications at 0445, but at 0500 was only responsive to verbal stimuli. patient recently treated for UTI, currently still has picc line in L upper arm. 05:50 Coronavirus screen: At this time, the client does not indicate any symptoms associated al5 with coronavirus-19. Ebola Screen: No symptoms or risks identified at this time. Initial Sepsis Screen: Does the patient meet any 2 criteria? Altered Mental Status. No. Patient's initial sepsis screen is negative. Does the patient have a suspected source of infection? No. Patient's initial sepsis screen is negative. Risk Assessment: Do you want to hurt yourself or someone else? Unable to obtain. Onset of symptoms was August 01, 2024. 05:50 Method Of Arrival: EMS: [facility] al5 05:50 Acuity: JENNIFER 2 al5 Triage Assessment: 05:50 General: Appears in no apparent distress. Behavior is unresponsive. Pain: Unable to use al5 pain scale. Patient is unresponsive. EENT: No signs and/or symptoms were reported regarding the EENT system. Neuro: Level of Consciousness is lethargic, Oriented to none. Cardiovascular: Capillary refill < 3 seconds Patient's skin is warm and dry. Respiratory: Airway is patent Respiratory effort is even, unlabored, Respiratory pattern is regular, symmetrical. GI: Abdomen is flat, non-distended. : Reports ems reports recently being treated for a urinary tract infection, currently has picc line from treatment. Derm: Skin is intact, Skin is pink, warm \T\ dry. normal. Musculoskeletal: No deficits noted. Historical: - Allergies: 05:55 Morphine; vc1 05:55 PENICILLINS; vc1 - PMHx: 05:55 Alzheimer's disease; Anxiety; coronary atherosclerosis; Dementia; depressive disorder; vc1 diabetes mellitus; GERD; Hypertensive disorder; - PSHx: 05:55 None; vc1 - Immunization history:: Adult Immunizations unknown. - Infectious Disease History:: Denies. - Family history:: not pertinent. - Social history:: Smoking status: unknown. - Hospitalizations: : No recent hospitalization is reported. Screenin:21 Abuse screen: Denies threats or abuse. Nutritional screening: No deficits noted. vc1 Tuberculosis screening: No symptoms or risk factors identified. 06:26 [facility] ED Fall Risk Assessment (Adult) History of falling in the last 3 months, al5 including since admission No falls in past 3 months (0 pts) Confusion or Disorientation Yes (5 pts) Intoxicated or Sedated No (0 pts) Impaired Gait Yes (1 pt) Mobility Assist Device Used Yes (1 pt) Altered Elimination Yes (1 pt) Score/Fall Risk Level 3 or more points = High Risk Oriented to surroundings, Maintained a safe environment, Hourly rounding (assess needs \T\ fall precautionary measures) done, Utilized family, sitter, or virtual veterinary surgery technologist as indicated. Assessment: 06:26 Reassessment: see triage assessment. al5 Vital Signs: 05:45 BP 126 / 67; Pulse 72; Resp 15; Pulse Ox 98% on R/A; al5 05:50 BP 141 / 70; Pulse 73; Resp 16; Temp 98.6(A); Pulse Ox 97% on R/A; Weight 52.62 kg (M); al5 Height 5 ft. 3 in. ; 06:28 BP 141 / 66; Pulse 71; Resp 15; Pulse Ox 99% on R/A; al5 06:30 BP 143 / 70; Pulse 72; Resp 14; Pulse Ox 99% on R/A; al5 07:35 BP 150 / 67; Pulse 76; Resp 16; Pulse Ox 100% ; ko1 05:50 Body Mass Index 20.55 (52.62 kg, 160.02 cm) al5 ED Course: 05:50 Patient arrived in ED. rn 05:51 Ander Meadows MD is Attending Physician. rn 05:52 No provider procedures requiring assistance completed. Missed attempt(s): 22 gauge in al5 left antecubital area. and left forearm. Bleeding controlled, band aid applied, catheter tip intact. 05:53 Ryann Timmons, LAYO is Primary Nurse. al5 05:55 Inserted saline lock: 22 gauge in left ,using aseptic technique. palm Blood collected. vc1 Flushed with 10 mL NS. 05:55 Arm band placed on right wrist. Patient placed in the treatment room, on a stretcher, al5 on pulse oximetry. 06:00 Patient has correct armband on for positive identification. Bed in low position. Call al5 light in reach. Side rails up X2. 06:20 Triage completed. al5 06:30 Chest Single View XRAY In Process Unspecified. EDMS 06:45 EKG done, by ED staff, reviewed by Ander Meadows MD. sa1 06:48 CT Head Brain wo Cont In Process Unspecified. EDMS 07:35 Attending Physician role handed off by Ander Meadows MD rt 07:35 Umang Adorno MD is Attending Physician. rt 08:11 Steven Amaya MD is Hospitalizing Provider. rt 14:44 Patient admitted, IV remains in place. ko1 14:44 Provided Education on: admit. ko1 15:26 Cleaned of incontinence. Linen changed. ko1 Administered Medications: 06:41 Drug: NS 0.9% IV 500 ml 500 ml IV at 1 bolus once; to be given as a bolus over 30 al5 minutes Volume: 500 ml; Route: IV; Rate: 1 bolus; Site: left hand; 07:10 Follow up: Response: No adverse reaction; IV Status: Completed infusion; IV Intake: ko1 500ml 08:06 Drug: NS 0.9% IV 500 ml 500 ml IV at 1 bolus once; to be given as a bolus over 30 ko1 minutes Volume: 500 ml; Route: IV; Rate: 1 bolus; Site: left hand; 09:04 Follow up: Response: No adverse reaction; IV Status: Completed infusion; IV Intake: ko1 500ml Medication: 06:28 VIS not applicable for this client. al5 Intake: 07:10 IV: 500ml; Total: 500ml. ko1 09:04 IV: 500ml; Total: 1000ml. ko1 Outcome: 08:11 Decision to Hospitalize by Provider. rt 14:44 Condition: stable ko1 14:44 Instructed on the need for admit, 15:26 Admitted to Med/surg accompanied by tech, via stretcher, room 405, with chart, ko1 15:45 Patient left the ED. ko1 Signatures: Dispatcher [employer] EDMS Meadows Ander, MD MD rn Calcote, Ana, RN RN vc1 Rebeca Finney RN RN ko1 Umang Adorno MD MD rt Ryann Timmons RN RN al5 Sultan liana Arana1 Corrections: (The following items were deleted from the chart) 06:26 06:22 Arm band placed on right wrist. vc1 al5
[2024-08-01] MEDS ORDERED: ONDANSETRON 4 MG/2 ML VIAL IV PRN (09:08)
--- NOTE | 2024-08-01 09:12 | P.HP ---
Certification for Inpatient Patient admitted to: Inpatient Practitioner: I am a practitioner with admitting privileges, knowledge of patient current condition, hospital course, and medical plan of care. Services: Services provided to patient in accordance with Admission requirements found in Title 42 Section 412.3 of the Code of Federal Regulations Patient History Date of Service: 08/01/24 Reason for admission: Metabolic encephalopathy History of Present Illness: 84-year-old female with a past medical history of advanced dementia, anxiety, CAD, depression, diabetes mellitus, GERD, hypertension, presents to the emergency room via EMS for altered mental status. She was recently admitted for ESBL of the urine, bacteremia 07/22-03/02, & 05/2024, Family reports stopped meropenem yesterday. Daughter at bedside reports patient has been confused the last 3 days. Sleeping. Not eating. She is currently at [facility]. Baseline she is Awake, alert, she is set up for feeds, feeds herself. She is a full code at this time. Daughter is a nurse, discussed MRI, urine culture, blood cultures, resume treatment of IV Merrem, will rediscuss CODE STATUS if patient does not progress in the next couple days. No reported fever, cough, nausea vomiting diarrhea. ER evaluation UA is negative for acute UTI. Chest x- ray negative for acute findings, CT of the head negative for acute findings. MRI ordered to evaluate for CVA. Plan to admit for metabolic encephalopathy likely secondary to ESBL of the urine, advanced dementia, Allergies morphine Allergy (Verified 04/24/24 21:45) Hives/Rash Penicillins Allergy (Verified 04/24/24 21:45) Itching/Hives/Rash egg Adverse Reaction (Verified 04/25/24 07:13) Rash Home Medications: Amlodipine Besylate 10 mg PO DAILY 04/26/24 Baclofen 10 mg PO TID 04/26/24 Citalopram Hydrobromide [Celexa] 20 mg PO DAILY 04/26/24 Clopidogrel Bisulfate [Plavix] 75 mg PO DAILY 04/26/24 Codeine/APAP [Tylenol #3*] 1 tab PO BEDTIME 04/26/24 Dicyclomine HCl 10 mg PO BID 04/26/24 Donepezil HCl 10 mg PO BEDTIME 04/26/24 Lisinopril [Zestril] 40 mg PO DAILY 04/26/24 Loperamide [Imodium*] 2 mg PO Q6HP PRN 04/26/24 Memantine HCl [Memantine HCl ER] 14 mg PO BEDTIME 04/26/24 Multivit-Min/Iron/Folic Acid/K [Multi-Day Plus Minerals Tablet] 1 each PO DAILY 04/26/24 Omeprazole 20 mg PO DAILY 04/26/24 clonazePAM [Clonazepam] 0.25 mg PO TID 04/26/24 glipiZIDE [Glipizide] 10 mg PO DAILY 04/26/24 Acetaminophen 325 mg PO Q6HR PRN 07/22/24 Carboxymethylcellulose Sodium [Artificial Tears] 2 drops OP BID 07/22/24 Clotrimazole [Lotrimin 1% Cream*] 1 appl TOP BEDTIME 07/22/24 Ketorolac Opth [Acular 0.5% Opth Drops*] 1 drop LEFT EYE QID 07/22/24 Lactobacillus Acidophilus [Probiotic] 2 each PO DAILY 07/22/24 Lactulose 30 ml PO Q6HR PRN 07/22/24 Lidocaine 4% Patch [Lidoderm 5% Patch*] 1 patch TP DIRECTED 07/22/24 Mag Hydrox/Al Hydrox/Simeth [Maalox Suspension] 30 ml PO Q6HR PRN 07/22/24 Melatonin 10 mg PO BEDTIME 07/22/24 - Past Medical/Surgical History -: Dementia -: MDR UTI -: Hip surgery Psychosocial/ Personal History: Lives at [facility] - Social History Alcohol use: No CD- Drugs: No Caffeine use: No Review of Systems 10-point ROS is otherwise unremarkable Physical Examination - Physical Exam General: In no apparent distress, Oriented x1, Other (Eyes open to verbal, lethargic,) HEENT: Atraumatic, Normocephalic, PERRLA Neck: 2+ carotid pulse no bruit, JVD not distended Respiratory: Clear to auscultation bilaterally, Normal air movement Cardiovascular: Normal pulses, Regular rate/rhythm Gastrointestinal: Normal bowel sounds, Soft and benign Musculoskeletal: No swelling, No contractures Integumentary: No breakdown, No significant lesion Neurological: Abnormal gait, Abnormal speech, Abnormal strength Lymphatics: No axilla or inguinal lymphadenopathy - Studies Laboratory Data (last 24 hrs) 08/01/24 08/01/24 08/01/24 06:15 06:15 06:15 WBC 8.20 Hgb 10.9 L Hct 32.5 L Plt Count 585 H PT 12.7 H INR 1.21 APTT 34.2 Sodium 141 Potassium 3.3 L BUN 26 H Creatinine 0.73 Glucose 133 H Total Bilirubin 0.3 AST 29 ALT 59 H Alkaline Phosphatase 152 H Assessment and Plan - Problems (Diagnosis) (1) Metabolic encephalopathy Current Visit: No Status: Acute (2) UTI due to extended-spectrum beta lactamase (ESBL) producing Escherichia coli Current Visit: No Status: Acute (3) Advanced dementia Current Visit: No Status: Acute Qualifiers: Dementia type: Alzheimer's - Plan Assessment plan Metabolic encephalopathy secondary ESBL of the urine,/acute cystitis history of MDR UTI/bacteremia Will start empirically on meropenem given recent E. coli ESBL UTI/bacteremia in May Obtaining blood and urine cultures Does not currently meet sepsis criteria Continue supportive care/IV antibiotics and await cultures MRI of the brain ABG to eval for hypoxia, elevated CO2 N.p.o. until more alert, will order speech eval to assess for swallow when awake Advanced dementia Continue home medications when verified DVT PPX:Lovenox Code status:Full Discharge Plan: Home Plan to discharge in: Greater than 2 days Discharge Plan: Senior Living - Advance Directives Does patient have a Living Will: Yes Does patient have a Durable POA for Healthcare: Yes - Code Status/Comfort Care Code Status: Full Code Critical Care: No Time Spent Managing Pts Care (In Minutes): 55
[2024-08-01] MEDS: Meropenem 1,000 MG in NA CHLORIDE 0.9% 100 ML IV SCH (09:30)
[2024-08-01] MEDS: KCL 20 MEQ/100 mL IVPB 20 MEQ/100 ML BAG IV SCH (10:00)
[2024-08-01] MEDS: NA CHLORIDE 0.9% 1,000 ML IV SCH (10:00)
[2024-08-01] MEDS ORDERED: Meropenem 1000 MG/VIAL IV ONE (11:03)
[2024-08-01] MEDS ORDERED: NA CHLORIDE 0.9% 1,000 ML ONE (11:03)
[2024-08-01] MEDS ORDERED: KCL 20 MEQ/100 mL IVPB 100 ML IV ONE (11:04)
[2024-08-01] MEDS ORDERED: NA CHLORIDE 0.9% 100 ML ONE (11:04)
[2024-08-01 11:32] LABS: Anion Gap 9.6 mEq/L (5.0-15.0); Potassium 3.6 mEq/L (3.5-5.1)
--- NOTE | 2024-08-01 11:41 | RAD REPORT ---
EXAMINATION: MRI BRAIN WITHOUT CONTRAST CLINICAL INDICATION: Female, 84 years old. change of mental status TECHNIQUE: Multiplanar multisequence MR images of the brain were obtained without intravenous contras t. Unless otherwise specified, incidental findings do not require dedicated imaging follow-up. [id number]. COMPARISON: Same-day head CT FINDINGS: INTRACRANIAL: No acute infarct identified. No significant mass effect or midline shift.No hydrocepha brigida. Moderate chronic small vessel ischemic changes.Severe cerebral atrophy. VASCULATURE: Normal signal voids in the larger intracranial arteries and dural venous sinuses. SINUSES: The paranasal sinuses are clear.No mastoid effusions. BONE: The marrow signal pattern is within normal limits. IMPRESSION: No acute intracranial abnormality. Specifically, no evidence of acute infarct.
[2024-08-01 13:10] VITALS: BMI 21.4
--- NOTE | 2024-08-01 16:50 | CON ---
History Of Present Illness: This is an 84-year-old female, I was consulted for evaluation of uroseps is secondary to ESBL infection. The patient was recently discharged from the hospital as per family after finishing her treatment. Patient's condition worsen and she became somnolent and unresponsive after that and was brought into the hospital for further evaluation. The patient currently on merope nem. Unable to open her eyes. MRI of the brain done earlier today shows no acute intracranial abnor malities. Past Medical History: Urosepsis secondary to ESBL infection, recently treated. Dementia. Hip surge ry. Social History: Nonsmoker, nondrinker. Family History: Noncontributory. Medications: Meropenem. See MARs for other medications. Allergies: MORPHINE, PENICILLIN AND EGGS. Review of Systems: Unable to obtain. Physical Examination: General: This is an 84-year-old female lying in bed, in the emergency room, not in any acute cardiop ulmonary distress. Vital Signs: Reviewed. HEENT: Unremarkable. Neck: Supple. Lungs: Basal crackles. Heart: S1, S2. Regular. Abdomen: Soft, nontender. Bowel sounds present. Extremities: No edema. Muscle wasting noted. Diagnostic Data: Chest x-ray shows no evidence of acute cardiopulmonary disease. Laboratory Data: Shows WBC 8.2, hemoglobin 10.9, platelets 585. Chemistry shows BUN of 22, creatini ne 0.5. Wbc in the urine is 10-20, rbc less than 5. Blood and urine cultures are pending. Assessment And Plan: An 84-year-old female, recently treated for extended-spectrum beta-lactamase ur inary tract infection secondary to Escherichia coli on July 22, coming back with altered mental st atus with minimal pyuria. No hematuria noted on the urinalysis. Chemistry shows moderate protein-ca celeste malnourishment, otherwise unremarkable and anemia of chronic disease. Continue current treatme nt meropenem and monitor culture reports. We will follow the patient closely. Thank you for consult. NF/MODL Voice ID: [id number] Report ID: [id number]
[2024-08-01 17:51] LABS: Blood Gas Oxyhemoglobin 94.1 % (94-97); Blood O2 Saturation 96.9 % (92-98.5)
[2024-08-01 17:52] LABS: Blood Gas THB 11.8 g/dl (12-18)
[2024-08-02 06:28] LABS: Albumin 2.9 g/dL (3.4-5.0); Albumin/Globulin Ratio 0.6 (1.1-1.8); Anion Gap 11.3 mEq/L (5.0-15.0); Bilirubin Total 0.3 mg/dL (0.2-1.0); Magnesium 1.8 mg/dL (1.6-2.4); Phosphorus 1.7 mg/dL (2.5-4.9); Potassium 3.3 mEq/L (3.5-5.1); Protein, Total 7.9 g/dL (6.4-8.2)
[2024-08-02] MEDS: MAGNESIUM SULFATE 1 gm IVPB 1 GM/100 ML BAG IV ONE (06:45)
[2024-08-02] MEDS: POTASSIUM 25 MEQ EFFERV TAB PO ONE (09:23)
[2024-08-02] MEDS: POTASSIUM PHOS IN 0.9 % NACL 15 MMOL/250 ML BAG IV ONE (09:23)
[2024-08-02 10:49] LABS: Absolute Basophils 0.1 K/uL (0-0.5); Absolute Eosinophils 0.2 K/uL (0-0.5); Absolute Lymphocytes (CBC) 1.6 K/uL (0.7-4.9); Absolute Monocytes 0.8 K/uL (0.1-1.3); Absolute Neutrophil 7.9 K/uL (1.8-8.0); Basophils % 0.7 % (0-1.3); Eosinophils % 2.3 % (0-4.4); Hematocrit 37.3 % (36.0-45.0); Lymphocytes % 14.9 % (15.3-44.8); MCH 26.4 pg (27.0-35.0); MCHC 32.3 g/dL (32.0-36.0); MCV 81.8 fL (80-100); MPV 7.3 fL (7.6-11.3); Monocytes % 7.7 % (3.3-12.3); Neutrophils % 74.4 % (41.7-73.7); Nucleated Red Blood Cells % 0.4 % (0-0); Platelets 618 thou/uL (152-406); RBC Red Blood Cell Count 4.56 M/uL (3.86-4.86); Red Cell Distribution Width 16.4 % (12.1-15.2)
[2024-08-02] MEDS: MELATONIN 5 MG TABLET PO PRN (21:34)
[2024-08-03 07:37] LABS: Absolute Basophils 0.1 K/uL (0-0.5); Absolute Eosinophils 0.5 K/uL (0-0.5); Absolute Lymphocytes (CBC) 2.3 K/uL (0.7-4.9); Absolute Monocytes 0.7 K/uL (0.1-1.3); Absolute Neutrophil 5.2 K/uL (1.8-8.0); Basophils % 1.3 % (0-1.3); Eosinophils % 5.9 % (0-4.4); Hematocrit 34.9 % (36.0-45.0); Hemoglobin 11.6 g/dL (12.0-15.0); Lymphocytes % 25.8 % (15.3-44.8); MCH 27.3 pg (27.0-35.0); MCHC 33.4 g/dL (32.0-36.0); MCV 81.8 fL (80-100); MPV 6.9 fL (7.6-11.3); Monocytes % 7.8 % (3.3-12.3); Neutrophils % 59.2 % (41.7-73.7); Nucleated Red Blood Cells % 0.1 % (0-0); Platelets 553 thou/uL (152-406); RBC Red Blood Cell Count 4.26 M/uL (3.86-4.86)
[2024-08-03 07:43] LABS: Albumin 2.7 g/dL (3.4-5.0); Albumin/Globulin Ratio 0.7 (1.1-1.8); Bilirubin Total 0.3 mg/dL (0.2-1.0); Globulin 4.1 g/dL (2.3-3.5); Phosphorus 2.3 mg/dL (2.5-4.9); Protein, Total 6.8 g/dL (6.4-8.2)
[2024-08-03 08:40] VITALS: O2SAT 96
[2024-08-03] MEDS ORDERED: POTASS/SODIUM PHOSPHATE 1 PKT POWD.PACK PO ONE (11:00)
[2024-08-03] MEDS: POTASSIUM PHOS IN 0.9 % NACL 15 MMOL/250 ML BAG IV ONE (11:00)
[2024-08-03 13:41] VITALS: BP 175/88; TEMP 98.5
--- NOTE | 2024-08-06 12:48 | EKG ---
Test Date: 2024-08-01 Test Time: 06:41:50 Skiver Hand: MEASUREMENT RESULTS: Intervals: Rate: 72 AR: 150 QRSD: 84 QT: 414 QTc: 453 [place]: P: 82 AR: 150 QRS: 48 T: -61 INTERPRETIVE STATEMENTS: Normal sinus rhythm Nonspecific T wave abnormality Abnormal ECG Compared to ECG 07/22/2024 14:13:28 T-wave abnormality now present ST (T wave) deviation no longer present Electronically Signed On 08-06-24 12:37:52 NETWORK CONTRACT MANAGER by Preston Parsons
--- NOTE | 2024-08-12 12:51 | EKG ---
Test Date: 2024-07-24 Test Time: 16:29:13 Electricity Trading Analyst: TU MEASUREMENT RESULTS: Intervals: Rate: 122 MD: 142 QRSD: 68 QT: 266 QTc: 379 [place]: P: 51 MD: 142 QRS: 53 T: 269 INTERPRETIVE STATEMENTS: Sinus tachycardia ST & T wave abnormality, consider inferior ischemia ST & T wave abnormality, consider anterolateral ischemia Abnormal ECG Compared to ECG 07/22/2024 14:13:28 Possible ischemia now present Sinus rhythm no longer present ST (T wave) deviation still present Electronically Signed On 08-12-24 12:28:51 FILM MASKER by Preston Parsons
== END 2024-08-03 16:30 | DRG 71 ==
LOC: ER 05:49 → ERHOLD 09:15 → 4TH 14:36
PROVIDERS: ADMIT Hospitalist; ATTEND Hospitalist
PROC: 0T9B70Z Drainage of Bladder with Drainage Device, Via Natural or Artificial Opening (ICD-10-PCS; principal; 2024-08-01)
DX: G93.41 Metabolic encephalopathy (principal); E44.0 Moderate protein-calorie malnutrition; N30.00 Acute cystitis without hematuria; Z16.12 Extended spectrum beta lactamase (ESBL) resistance; G30.9 Alzheimer's disease, unspecified; F02.80 Dementia in other diseases classified elsewhere, unspecified severity, without behavioral disturbance, psychotic disturbance, mood disturbance, and anxiety; E11.9 Type 2 diabetes mellitus without complications; K21.9 Gastro-esophageal reflux disease without esophagitis; I10 Essential (primary) hypertension; D63.8 Anemia in other chronic diseases classified elsewhere; E86.0 Dehydration; I25.10 Atherosclerotic heart disease of native coronary artery without angina pectoris; B96.20 Unspecified Escherichia coli [E. coli] as the cause of diseases classified elsewhere; Z88.0 Allergy status to penicillin; Z88.5 Allergy status to narcotic agent; Z91.012 Allergy to eggs; Z79.02 Long term (current) use of antithrombotics/antiplatelets; Z79.84 Long term (current) use of oral hypoglycemic drugs; Z79.899 Other long term (current) drug therapy; Z68.21 Body mass index [BMI] 21.0-21.9, adult
CPT/HCPCS: 36415; 70450; 70551; 71045; 80048; 80053; 81001; 82805; 82947; 83605; 83735; 84100; 85025; 85610; 85730; 87040; 87086; 87088; 93005; 94760; 96360; 99285; J2185; J3475; J3480; J7030; J7040

== ENCOUNTER 2024-10-31 07:43 | Inpatient (IN) | payer OTHER ==
--- OUTSIDE RECORDS SUMMARY | 2024-10-31 07:47 | XMS REPORT | Continuity of Care Document ---
Author Name Unknown Address [address] [place] [address] [facility] Address [address] [place] [address] Care Team Providers Care Yarder Operator Name Role Phone Jhony MACKENZIE, [facility] Primary Care Physician [phone] INEZ TOBIAS Attending Clinician Unavailable INEZ TOBIAS Attending Clinician Unavailable Jatinder MACKENZIE, Inez Attending Clinician [phone] Payers Payer Name Policy Type Policy Number Effective Date Expirati on Date Source [facility] PPO CSNP [id number] 2024 00:00:00 [employer] [id number] 2024 00:00:00 Problems Condition Name Condition Details Condition Category Status Onset Date Resolution Date Last Treatment Date Treating Clinician Comments Source 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 Disease Active 10-15 00:00: 00 [facility] Allergies, Adverse Reactions, Alerts Allergy Name Allergy Type Status Severity Reaction(s) Onset Date Inactive Date Treating Clinician Comments Source MORPHINE DRUG INGREDI Active Unknown-Cmnt 10-15 00:00: 00 [facility] Morphine Propensi ty to adverse reaction s Active Unknown - See comments 10-15 00:00: 00 [facility] PENICILL INS Drug Class Active Other-Cmnt 10-15 00:00: 00 [facility] Penicill ins Propensi ty to adverse reaction s Active Other - See comments 10-15 00:00: 00 [facility] Social History Social Habit Start Date Stop Date Quantity Comments [facility] at 1940 00:[facility]:00 1940 00:00:00 [facility] Smoking Status Start Date Stop Date Source Tobacco smoking consumption unknown [facility] Medications Ordered Medication Name Filled Medication Name Start Date Stop Date Current Medication? Ordering Clinician Indication Dosage Frequency Signature (SIG) Comments Components Source acetaminoph en (TYLENOL) 325 mg tablet 10-15 13:53: 52 Yes Take by mouth every 6 (six) hours as needed. [facility] acetaminoph en-codeine 300-30 mg tablet 10-15 13:53: 52 Yes 1{tbl} Take 1 tablet by mouth every 4 (four) hours as needed. [facility] baclofen 10 mg tablet 10-15 13:53: 52 Yes 10mg Take 1 tablet by mouth in the morning and 1 tablet at noon and 1 tablet in the evening. [facility] citalopram 20 mg tablet 10-15 13:53: 52 Yes 20mg Take 1 tablet by mouth in the morning. [facility] clonazePAM 0.25 mg disintegrat ing tablet 10-15 13:53: 52 Yes .25mg Take 1 tablet by mouth 2 (two) times daily as needed for Anxiety. [facility] clopidogreL 75 mg tablet 10-15 13:53: 52 Yes 75mg Take 1 tablet by mouth in the morning. [facility] OMEPRAZOLE ORAL 10-15 13:53: 52 Yes Take by mouth. [facility] dicyclomine 10 mg capsule 10-15 13:53: 52 Yes 10mg Take 1 capsule by mouth 4 (four) times daily. [facility] donepeziL 10 mg tablet 10-15 13:53: 52 Yes 10mg Take 1 tablet by mouth at bedtime. [facility] ketorolac 0.5 % ophthalmic solution 10-15 13:53: 52 Yes 1[drp] 1 Drop 4 (four) times daily. [facility] lactulose 20 gram packet 10-15 13:53: 52 Yes 20g Take 1 Packet by mouth in the morning and 1 Packet at noon and 1 Packet in the evening. [facility] Lidocaine 4 % patch 10-15 13:53: 52 Yes 1{patch } Apply 1 Patch to area(s) once now. [facility] Loperamide HCl 2 mg Tab tablet 10-15 13:53: 52 Yes Take by mouth. [facility] Melatonin 5 mg tablet 10-15 13:53: 52 Yes Take by mouth. [facility] methenamine 1 gram tablet 10-15 00:00: 00 Yes [id number] 1g Take 1 tablet by mouth in the morning and 1 tablet in the evening. Take with meals. [facility] Vital Signs Vital Name Observation Time Observation Value Comments S ource Systolic blood pressure 2024-10-15 15:47:00 154 mm[Hg] [facility] Diastolic blood pressure 2024-10-15 15:47:00 74 mm[Hg] [facility] Heart rate 2024-10-15 15:46:00 72 /min [facility] Body height 2024-10-15 15:46:00 167.6 cm [facility] Body weight 2024-10-15 15:46:00 56.246 kg [facility] BMI 2024-10-15 15:46:00 20.01 kg/m2 [facility] Oxygen saturation in Arterial blood by Pulse oximetry 2024-10-15 15:46:00 96 /min [facility] Procedures Procedure Date / Time Performed Performing Clinicia n Source HUA,POST-VOID RES,US,NON-IMAGING 2024-10-15 00:00:00 Inez Tobias [facility] Encounters Start Date/Time End Date/Time Encounter Type Admission Type Attending Clinicians Care Facility Care Department Encounter ID Source 2024-10-15 10:00:00 2024-10-15 11:17:45 Outpatient R INEZ TOBIAS [facility] [id number] [facility] 2024-10-15 10:00:00 2024-10-15 11:17:45 Office Visit Maria Dolores Tobiasha [facility] [id number] [facility] Results Test Description Test Time Test Comments Results Result Co mments Source [facility]
[2024-10-31] MEDS ORDERED: NA CHLORIDE 0.9% 500 ML ONE ×2 (08:05→09:56)
[2024-10-31 08:10] LABS: Absolute Basophils 0.1 K/uL (0-0.5); Absolute Eosinophils 0.1 K/uL (0-0.5); Absolute Lymphocytes (CBC) 1.8 K/uL (0.7-4.9); Absolute Monocytes 1.4 K/uL (0.1-1.3); Absolute Neutrophil 12.1 K/uL (1.8-8.0); Basophils % 0.7 % (0-1.3); Eosinophils % 0.9 % (0-4.4); Hemoglobin 11.6 g/dL (12.0-15.0); Lymphocytes % 11.4 % (15.3-44.8); MCH 27.4 pg (27.0-35.0); MPV 7.4 fL (7.6-11.3); Monocytes % 8.8 % (3.3-12.3); Neutrophils % 78.2 % (41.7-73.7); Platelets 372 thou/uL (152-406); RBC Red Blood Cell Count 4.21 M/uL (3.86-4.86); Red Cell Distribution Width 14.8 % (12.1-15.2)
--- NOTE | 2024-10-31 08:25 | RAD REPORT ---
EXAM: CT brain without contrast HISTORY: Confusion/alteration of consciousness COMPARISON: July 2024 TECHNIQUE: Multiple contiguous axial images were obtained and a CT of the brain without contrast.. Sagittal and coronal reconstruction performed. Automated exposure control, adjustment of the mA and/or kV according to patient size, and/or iterative reconstruction. Unless otherwise specified, incidental f indings do not require dedicated imaging follow-up FINDINGS: An intracranial bleed is not seen Ventricles are normal caliber No extra-axial fluid collection noted Moderate cerebral atrophy. Moderate low-density paraventricular, deep and subcortical white matter pr obably ischemic changes secondary to small vessel disease. No fluid within the visualized sinuses or mastoids noted. IMPRESSION: No acute intracranial abnormality noted. If the patient continues to have symptoms to suggest an acute intracranial abnormality then MRI of th e brain would be recommended.
[2024-10-31 08:39] LABS: ALT/SGPT 15 U/L (13-56); Albumin 3.3 g/dL (3.4-5.0); Albumin/Globulin Ratio 0.7 (1.1-1.8); Alkaline Phosphatase 144 U/L (45-117); Anion Gap 9.8 mEq/L (5.0-15.0); BUN Blood Urea Nitrogen 14 mg/dL (7-18); Bicarbonate 29 mEq/L (21-32); Bilirubin Total 0.4 mg/dL (0.2-1.0); Globulin 4.5 g/dL (2.3-3.5); Glomerular Filtration Rate 54 ml/min (=/>90); Glucose Level 175 mg/dL (74-106); Magnesium 2.1 mg/dL (1.6-2.4); Potassium 3.8 mEq/L (3.5-5.1); Protein, Total 7.8 g/dL (6.4-8.2); Sodium Level 138 mEq/L (136-145); Troponin High Sensitivity 34.1 pg/mL (<58.9)
--- NOTE | 2024-10-31 08:40 | RAD REPORT ---
Procedure: Chest Single View HISTORY: Confusion COMPARISON: July 2024 FINDINGS: The lungs appear clear of acute infiltrate. No significant pleural effusion noted. The heart is normal size. IMPRESSION: No acute abnormality is displayed.
[2024-10-31 08:49] LABS: AST/SGOT < 10 U/L (15-37); Bilirubin Direct < 0.2 mg/dL (0-0.2); Bilirubin Indirect, Calculated 0.2 mg/dL (0.2-0.8)
[2024-10-31 09:03] LABS: Specific Gravity 1.009 (1.005-1.030); Sqamous Epithelial <5 /HPF (None Seen); Urine Bacteria <20 /HPF (<20); Urine Bilirubin NEGATIVE (Negative); Urine Blood Trace (Negative); Urine Clarity Extremely Turbid (Clear); Urine Color Yellow (Yellow); Urine Glucose NEGATIVE (Negative); Urine Ketones NEGATIVE (Negative); Urine Micro Reflex YN NO BILL MICROSCOPIC; Urine Mucus Slight /HPF (None Seen); Urine Nitrite NEGATIVE (Negative); Urine Protein 1+ (Negative); Urine Urobilinogen Normal (Normal); Urine WBC >50 /HPF (<5); Urine WBC Clump Rare /HPF (None Seen)
[2024-10-31] MEDS ORDERED: NA CHLORIDE 0.9% 100 ML ONE (09:55)
[2024-10-31] MEDS ORDERED: CEFTRIAXONE 1000 MG/VIAL ONE (09:55)
--- NOTE | 2024-10-31 10:04 | EDPHYS ---
Physician Documentation [facility] Name: Libby Bosch Age: 84 yrs Sex: Female : 1940 Arrival Date: 10/31/2024 Time: 07:43 Bed 6 Private MD: ED Physician Umang Adorno HPI: 10/31 08:08 This 84 yrs old Female presents to ER via EMS with complaints of Altered Mental Status. rt 08:08 Patient with history of Alzheimer's disease who lives at a nursing and presents to the rt ED with altered mental status. Patient's daughter states that she was at her baseline yesterday, states that today she has been less alert than usual off of her baseline and less interactive. States that the symptoms typically occur when the patient gets a UTI. Denies other acute complaints at this time, symptoms are moderate in severity, no other aggravating relieving factors.. Historical: - Allergies: 07:47 Morphine; jl7 07:47 PENICILLINS; jl7 - PMHx: 07:47 Alzheimer's disease; Anxiety; coronary atherosclerosis; Dementia; depressive disorder; jl7 diabetes mellitus; GERD; Hypertensive disorder; metabolic encephalopathy (Hypertensive disorder); - Immunization history:: Adult Immunizations unknown. - Infectious Disease History:: Denies. - Social history:: Smoking status: Patient denies any tobacco usage or history of. - Family history:: not pertinent. ROS: 08:08 Unable to obtain ROS due to altered mental status, rt Exam: 08:08 Head/Face: Normocephalic, atraumatic. Chest/axilla: Normal chest wall appearance and rt motion. Nontender with no deformity. No lesions are appreciated. Cardiovascular: Regular rate and rhythm with a normal S1 and S2. No gallops, murmurs, or rubs. Normal PMI, no JVD. No pulse deficits. Respiratory: Lungs have equal breath sounds bilaterally, clear to auscultation and percussion. No rales, rhonchi or wheezes noted. No increased work of breathing, no retractions or nasal flaring. Abdomen/GI: Soft, non-tender, with normal bowel sounds. No distension or tympany. No guarding or rebound. No evidence of tenderness throughout. Skin: Warm, dry with normal turgor. Normal color with no rashes, no lesions, and no evidence of cellulitis. MS/ Extremity: Pulses equal, no cyanosis. Neurovascular intact. Full, normal range of motion. 08:08 ECG was reviewed by the Attending Physician. 08:08 Neuro: Withdrawn, oriented to person only, no cranial nerve deficits, strength and sensation intact in upper lower extremities, Vital Signs: 07:43 BP 140 / 92; Pulse 72; Resp 16; Pulse Ox 96% ; jl7 07:59 BP 156 / 79; Pulse 85; Resp 15; Temp 99.8; Pulse Ox 92% ; jl7 10:02 BP 146 / 82; Pulse 72; Resp 14; Pulse Ox 98% on R/A; hb 11:40 BP 169 / 73; Pulse 76; Resp 15; Pulse Ox 96% ; jl7 07:43 EMS Vitals jl7 MDM: 07:43 Medical Screening Exam initiated rt 10:17 Differential Diagnosis: UTI, CVA, intracranial hemorrhage, electrolyte changes. Data rt reviewed: vital signs, nurses notes, lab test result(s), EKG, radiologic studies. Consideration of Admission/Observation Patient was admitted/placed on observation. Management of patient was discussed with the following: Hospitalist: Agrees to admit. I considered the following discharge prescriptions or medication management in the emergency department Medications were administered in the Emergency Department. See MAR. Independent interpretation of the following test(s) in the Emergency Department CT Scan: My interpretation is No intracranial hemorrhage seen on interpretation of CT scan images. Care significantly affected by the following chronic conditions: Dementia. Counseling: I had a detailed discussion with the patient and/or guardian regarding the historical points, exam findings, and any diagnostic results supporting the discharge/admit diagnosis, lab results, radiology results, the need for further work-up and treatment in the hospital. Response to treatment: There is no appreciated change of the patient's symptoms at this time. 10/31 07:45 Order name: Basic Metabolic Panel; Complete Time: 09:12 rt 10/31 07:45 Order name: CBC with Diff; Complete Time: 08:46 rt 10/31 07:45 Order name: LFT's; Complete Time: 09:12 rt 10/31 07:45 Order name: Magnesium; Complete Time: 09:12 rt 10/31 07:45 Order name: Troponin HS; Complete Time: 09:12 rt 10/31 07:45 Order name: UAM; Complete Time: 09: rt 10/31 09:48 Order name: Blood Culture Adult (2) rt 10/31 09:48 Order name: Lactate w/ 2H reflex if indic. rt 10/31 09:48 Order name: Protime (+inr) rt 10/31 09:48 Order name: Ptt, Activated rt 10/31 10:14 Order name: COVID-19 Ag + Flu A+B Ag rt 10/31 10:56 Order name: Urinalysis W/Microscopic EDMS 10/31 10:56 Order name: Basic Metabolic Panel EDMS 10/31 10:56 Order name: Basic Metabolic Panel EDMS 10/31 10:56 Order name: Basic Metabolic Panel EDMS 10/31 10:56 Order name: Basic Metabolic Panel EDMS 10/31 10:56 Order name: Basic Metabolic Panel EDMS 10/31 10:56 Order name: Basic Metabolic Panel EDMS 10/31 10:56 Order name: Basic Metabolic Panel EDMS 10/31 10:56 Order name: Basic Metabolic Panel EDMS 10/31 10:56 Order name: CBC with Automated Diff EDMS 10/31 10:56 Order name: CBC with Automated Diff EDMS 10/31 10:56 Order name: CBC with Automated Diff EDMS 10/31 10:56 Order name: CBC with Automated Diff EDMS 10/31 10:56 Order name: CBC with Automated Diff EDMS 10/31 10:56 Order name: CBC with Automated Diff EDMS 10/31 10:56 Order name: CBC with Automated Diff EDMS 10/31 10:56 Order name: CBC with Automated Diff EDMS 10/31 10:56 Order name: Magnesium EDMS 10/31 10:56 Order name: Magnesium EDMS 10/31 10:56 Order name: Magnesium EDMS 10/31 10:56 Order name: Magnesium EDMS 10/31 10:56 Order name: Magnesium EDMS 10/31 10:56 Order name: Magnesium EDMS 10/31 10:56 Order name: Magnesium EDMS 10/31 10:56 Order name: Magnesium EDMS 10/31 10:56 Order name: Phosphorus EDMS 10/31 10:56 Order name: Phosphorus EDMS 10/31 10:56 Order name: Phosphorus EDMS 10/31 10:56 Order name: Phosphorus EDMS 10/31 10:56 Order name: Phosphorus EDMS 10/31 10:56 Order name: Phosphorus EDMS 10/31 10:56 Order name: Phosphorus EDMS 10/31 10:56 Order name: Phosphorus EDMS 10/31 10:56 Order name: Troponin High Sensitivity EDMS 10/31 10:56 Order name: Troponin High Sensitivity EDMS 10/31 10:56 Order name: Troponin High Sensitivity EDMS 10/31 07:45 Order name: XRAY Chest (1 view); Complete Time: 08:46 rt 10/31 07:45 Order name: CT Head Brain wo Cont; Complete Time: 08:46 rt 10/31 07:45 Order name: Cardiac monitoring; Complete Time: 07:56 rt 10/31 07:45 Order name: EKG - Nurse/Tech; Complete Time: 07:56 rt 10/31 07:45 Order name: IV Saline Lock; Complete Time: 07:56 rt 10/31 07:45 Order name: Labs collected and sent; Complete Time: 07:56 rt 10/31 07:45 Order name: O2 Per Protocol; Complete Time: 07:56 rt 10/31 07:45 Order name: O2 Sat Monitoring; Complete Time: 07:56 rt 10/31 09:48 Order name: Accucheck; Complete Time: 09:53 rt 10/31 09:48 Order name: IV Saline Lock - Large Bore; Complete Time: 09:53 rt 10/31 09:48 Order name: Vital Signs; Complete Time: 09:53 rt EC:08 Rate is 80 beats/min. Rhythm is regular, Normal Sinus Rhythm with No ectopy. QRS [place] rt is Normal. [place] interval is normal. QRS interval is normal. QT interval is normal. No Q waves. No ST changes noted. Interpreted by me. Administered Medications: 08:35 Drug: NS 0.9% IV 500 ml 500 ml IV at 1 bolus once; to be given as a bolus over 30 jl7 minutes Volume: 500 ml; Route: IV; Rate: 1 bolus; Site: left forearm; 11:37 Drug: NS 0.9% IV 500 ml 500 ml IV at 1 bolus once; to be given as a bolus over 30 jl7 minutes Volume: 500 ml; Route: IV; Rate: 1 bolus; Site: left forearm; 11:59 Follow up: IV Status: Infusion continued upon admission jl7 11:37 Drug: Rocephin IV 2 grams IV at calculated rate once; Given slow IV push per pharmarcy jl7 instructions Route: IV; Rate: calculated rate; Site: left forearm; 11:59 Follow up: IV Status: Infusion continued upon admission jl7 Disposition Summary: 10/31/24 10:03 Hospitalization Ordered Notes: Hospitalization Status: Inpatient Admission rt Provider: Jos Meadows rt Location: Telemetry/MedSurg (Inpatient) rt Condition: Stable rt Problem: new rt Symptoms: are unchanged rt Bed/Room Type: Standard rt Room Assignment: 211(10/31/24 11:02) eb Diagnosis - Altered mental status, unspecified rt - UTI/ Urinary tract infection, site not specified rt Forms: - Medication Reconciliation Form rt - SBAR form rt - Leadership Thank You Letter rt Signatures: Dispatcher [employer] Milton Shaw RN RN jl7 Hellen Mueller Ryan, MD MD rt Corrections: (The following items were deleted from the chart) 07:45 07:45 BASIC METABOLIC PANEL+C.LAB.BRZ ordered. EDMS EDMS 07:45 07:45 CBC+H.LAB.BRZ ordered. EDMS EDMS 07:45 07:45 HEPATIC FUNCTION+C.LAB.BRZ ordered. EDMS EDMS 07:45 07:45 MAGNESIUM+C.LAB.BRZ ordered. EDMS EDMS 07:45 07:45 Troponin High Sensitivity+C.LAB.BRZ ordered. EDMS EDMS 07:45 07:45 Urinalysis W/Microscopic+U.LAB.BRZ ordered. EDMS EDMS 07:45 07:45 Chest Single View+RAD.RAD.BRZ ordered. EDMS EDMS 07:45 07:45 Head Brain Wo Cont+CT.RAD.BRZ ordered. EDMS EDMS 11:02 10:03 rt eb
--- NOTE | 2024-10-31 10:04 | ER ---
Nurse's Notes [facility] Name: Libby Bosch Age: 84 yrs Sex: Female : 1940 Arrival Date: 10/31/2024 Time: 07:43 Bed 6 Private MD: Diagnosis: Altered mental status, unspecified;UTI/ Urinary tract infection, site not specified Presentation: 10/31 07:43 Chief complaint: EMS states: Toned out for altered mental status, pt baseline A\T\Ox1 to jl7 self, pt A\T\Ox1 to self on arrival, pts daughter reports pt is normally talking and more aware but today is lethargic. Coronavirus screen: At this time, the client does not indicate any symptoms associated with coronavirus-19. Ebola Screen: No symptoms or risks identified at this time. Initial Sepsis Screen: Does the patient meet any 2 criteria? No. Patient's initial sepsis screen is negative. Does the patient have a suspected source of infection? No. Patient's initial sepsis screen is negative. Risk Assessment: Do you want to hurt yourself or someone else? Patient reports no desire to harm self or others. Onset of symptoms is unknown. Care prior to arrival: IV initiated. 20 GA, in the left forearm, Glucose check: 218. 07:43 Method Of Arrival: EMS: [facility] jl7 07:43 Acuity: JENNIFER 3 jl7 Triage Assessment: 07:47 General: Appears in no apparent distress. uncomfortable, Behavior is cooperative, jl7 drowsy. Pain: Denies pain. Neuro: Level of Consciousness is obeys commands, lethargic, Oriented to person. Cardiovascular: Patient's skin is warm and dry. Respiratory: Airway is patent Respiratory effort is even, unlabored, Respiratory pattern is regular, symmetrical. Derm: Skin is pink, warm \T\ dry. Historical: - Allergies: 07:47 Morphine; jl7 07:47 PENICILLINS; jl7 - PMHx: 07:47 Alzheimer's disease; Anxiety; coronary atherosclerosis; Dementia; depressive disorder; jl7 diabetes mellitus; GERD; Hypertensive disorder; metabolic encephalopathy (Hypertensive disorder); - Immunization history:: Adult Immunizations unknown. - Infectious Disease History:: Denies. - Social history:: Smoking status: Patient denies any tobacco usage or history of. - Family history:: not pertinent. Screenin:00 [facility] ED Fall Risk Assessment (Adult) History of falling in the last 3 months, jl7 including since admission No falls in past 3 months (0 pts) Confusion or Disorientation Yes (5 pts) Intoxicated or Sedated No (0 pts) Impaired Gait No (0 pts) Mobility Assist Device Used No (0 pt) Altered Elimination Yes (1 pt) Score/Fall Risk Level 3 or more points = High Risk Oriented to surroundings, Maintained a safe environment, Utilized family, sitter, or virtual change house attendant as indicated. Abuse screen: Denies threats or abuse. Denies injuries from another. Nutritional screening: No deficits noted. Tuberculosis screening: No symptoms or risk factors identified. Assessment: 09:00 Reassessment: Patient appears in no apparent distress at this time. Patient and/or jl7 family updated on plan of care and expected duration. Pain level reassessed. daughter remains at bedsdide. Neuro: Level of Consciousness is lethargic, responds to painful stimuli. Oriented to person. Cardiovascular: Patient's skin is warm and dry. Respiratory: Airway is patent Respiratory effort is even, unlabored, Respiratory pattern is symmetrical. 10:00 Reassessment: Patient appears in no apparent distress at this time. No changes from jl7 previously documented assessment. Patient and/or family updated on plan of care and expected duration. Pain level reassessed. 11:00 Reassessment: Patient appears in no apparent distress at this time. No changes from jl7 previously documented assessment. Patient and/or family updated on plan of care and expected duration. Pain level reassessed. Vital Signs: 07:43 BP 140 / 92; Pulse 72; Resp 16; Pulse Ox 96% ; jl7 07:59 BP 156 / 79; Pulse 85; Resp 15; Temp 99.8; Pulse Ox 92% ; jl7 10:02 BP 146 / 82; Pulse 72; Resp 14; Pulse Ox 98% on R/A; hb 11:40 BP 169 / 73; Pulse 76; Resp 15; Pulse Ox 96% ; jl7 07:43 EMS Vitals jl7 ED Course: 07:43 Patient arrived in ED. jl7 07:43 Umang Adorno MD is Attending Physician. rt 07:47 Triage completed. jl7 07:47 Arm band placed on right wrist. jl7 07:56 Milton Sorto RN is Primary Nurse. jl7 07:58 Basic Metabolic Panel Sent. hb 07:58 CBC with Diff Sent. hb 07:58 LFT's Sent. hb 07:58 Magnesium Sent. hb 07:58 Troponin HS Sent. hb 08:00 Patient has correct armband on for positive identification. Bed in low position. Call jl7 light in reach. Side rails up X2. Adult w/ patient. Provided Education on: use of call kerr. Client placed on continuous cardiac and pulse oximetry monitoring. NIBP monitoring applied. night monitor on. 08:00 Initial lab(s) drawn, by me, sent to lab. EKG done, by ED staff, reviewed by Umang Adorno MD. Maintain EMS IV. Dressing intact. Good blood return noted. Site clean \T\ dry. Gauge \T\ site: 20 right FA. Flushed with 10 mL NS. 08:03 CT Head Brain wo Cont In Process Unspecified. EDMS 08:22 XRAY Chest (1 view) In Process Unspecified. EDMS 08:35 Urine collected: straight cath specimen, cloudy. Straight cath inserted, using sterile jl7 technique, 14 Fr. Returned cloudy urine. Patient tolerated well. 10:03 Jos Meadows MD is Hospitalizing Provider. rt 10:25 COVID-19 Ag + Flu A+B Ag Sent. hb 11:20 First set of blood cultures drawn by sd. jl7 11:32 Second set of blood cultures drawn by sd. jl7 11:40 No provider procedures requiring assistance completed. Patient admitted, IV remains in jl7 place. intact, No redness/swelling at site. Administered Medications: 08:35 Drug: NS 0.9% IV 500 ml 500 ml IV at 1 bolus once; to be given as a bolus over 30 jl7 minutes Volume: 500 ml; Route: IV; Rate: 1 bolus; Site: left forearm; 11:37 Drug: NS 0.9% IV 500 ml 500 ml IV at 1 bolus once; to be given as a bolus over 30 jl7 minutes Volume: 500 ml; Route: IV; Rate: 1 bolus; Site: left forearm; 11:59 Follow up: IV Status: Infusion continued upon admission jl7 11:37 Drug: Rocephin IV 2 grams IV at calculated rate once; Given slow IV push per pharmarcy jl7 instructions Route: IV; Rate: calculated rate; Site: left forearm; 11:59 Follow up: IV Status: Infusion continued upon admission jl7 Medication: 08:00 VIS not applicable for this client. jl7 Outcome: 10:03 Decision to Hospitalize by Provider. rt 11:40 Admitted to Med/surg accompanied by tech, family with patient, via stretcher, room 224, jl7 with chart, 11:40 Condition: stable 11:40 Discharge instructions given to family, Instructed on the need for admit, Demonstrated understanding of instructions, 12:47 Patient left the ED. jl7 Signatures: Dispatcher [employer] EDMS Desirae Avila, RN RN Milton Sorto RN RN jl7 Umang Adorno MD MD rt
[2024-10-31 10:48] LABS: Influenza A Ag Negative; Influenza B Ag Negative; SARS-CoV-2 Antigen Rapid Res Negative (Negative)
[2024-10-31] MEDS: NA CHLORIDE 0.9% 1,000 ML IV SCH (11:00)
--- NOTE | 2024-10-31 11:00 | P.HP ---
Certification for Inpatient Patient admitted to: Inpatient With expected LOS: >2 Midnights Practitioner: I am a practitioner with admitting privileges, knowledge of patient current condition, hospital course, and medical plan of care. Services: Services provided to patient in accordance with Admission requirements found in Title 42 Section 412.3 of the Code of Federal Regulations Patient History Date of Service: 10/31/24 Reason for admission: Acute metabolic encephalopathy secondary to UTI History of Present Illness: Libby Bosch is an 84-year-old female with a past medical history of Alzheimer's disease; Anxiety; coronary atherosclerosis; Dementia; depressive disorder; diabetes mellitus; GERD; Hypertensive disorder; metabolic encephalopathy who presents to the ED with altered mental status. longterm reports she is unresponsive this morning, unable to sit up straight, vital signs stable at that time. Family at the bedside reports she gets this way with urinary tract infections of which she has had a UTI in July. Laboratory evaluation significant for WBC 15, Lactic acid 2.2, serum glucose 175, UA positive for infectious process. CT head reports "Moderate cerebral atrophy. Moderate low-density paraventricular, deep and subcortical white matter probably ischemic changes secondary to small vessel disease." Chest xray reports "No acute abnormality is displayed " Libby will be admitted to hospitalist service for further treatment of acute metabolic encephalopathy 2/2 UTI. Allergies morphine Allergy (Verified 04/24/24 21:45) Hives/Rash Penicillins Allergy (Verified 04/24/24 21:45) Itching/Hives/Rash egg Adverse Reaction (Verified 04/25/24 07:13) Rash Home Medications: Baclofen 10 mg PO TID 04/26/24 Citalopram Hydrobromide [Celexa] 20 mg PO DAILY 04/26/24 Clopidogrel Bisulfate [Plavix] 75 mg PO DAILY 04/26/24 Codeine/APAP [Tylenol #3*] 1 tab PO BEDTIME 04/26/24 Dicyclomine HCl 10 mg PO BID 04/26/24 Donepezil HCl 10 mg PO BEDTIME 04/26/24 Loperamide [Imodium*] 2 mg PO Q6HP PRN 04/26/24 Memantine HCl [Memantine HCl ER] 14 mg PO BEDTIME 04/26/24 Multivit-Min/Iron/Folic Acid/K [Multi-Day Plus Minerals Tablet] 1 each PO DAILY 04/26/24 Omeprazole 20 mg PO DAILY 04/26/24 clonazePAM [Clonazepam] 0.25 mg PO TID 04/26/24 Acetaminophen 325 mg PO Q6HR PRN 07/22/24 Carboxymethylcellulose Sodium [Artificial Tears] 2 drops OP BID 07/22/24 Clotrimazole [Lotrimin 1% Cream*] 1 appl TOP BEDTIME 07/22/24 Ketorolac Opth [Acular 0.5% Opth Drops*] 1 drop LEFT EYE QID 07/22/24 Lactulose 30 ml PO Q6HR PRN 07/22/24 Lidocaine 4% Patch [Lidoderm 5% Patch*] 1 patch TP DIRECTED 07/22/24 Mag Hydrox/Al Hydrox/Simeth [Maalox Suspension] 30 ml PO Q6HR PRN 07/22/24 Melatonin 10 mg PO BEDTIME 07/22/24 Dextran 70/Hypromellose [Artificial Tears Drops] 2 ml OP BID 08/01/24 Smz./Tmp. [Bactrim Ds 800 MG/160 MG] 1 tab PO BID #10 tab 08/03/24 predniSONE [Deltasone] 20 mg PO DAILY #5 tab 08/03/24 - Past Medical/Surgical History Diabetic: Yes -: Dementia -: MDR UTI -: anxiety -: epressive disorder -: GERD -: HTN -: CAD -: Hip surgery Psychosocial/ Personal History: Lives at [facility] - Social History Smoking Status: Never smoker Alcohol use: No CD- Drugs: No Caffeine use: No Review of Systems is unable to be obtained (Lethargic) Physical Examination - Physical Exam General: Other (Lethargic) HEENT: Atraumatic, Normocephalic Neck: 2+ carotid pulse no bruit Respiratory: Clear to auscultation bilaterally, Normal air movement Cardiovascular: Normal pulses, Regular rate/rhythm Capillary refill: <2 Seconds Gastrointestinal: Normal bowel sounds, Soft and benign Musculoskeletal: No clubbing Integumentary: No rashes Neurological: Other (lethargic) - Studies Laboratory Data (last 24 hrs) 10/31/24 10/31/24 07:57 07:57 WBC 15.40 H Hgb 11.6 L Hct 35.0 L Plt Count 372 Sodium 138 Potassium 3.8 BUN 14 Creatinine 1.02 Glucose 175 H Magnesium 2.1 Total Bilirubin 0.4 AST < 10 L ALT 15 Alkaline Phosphatase 144 H Assessment and Plan - Plan Assessment and plan Acute metabolic encephalopathy secondary to urinary tract infection History of ESBL UTI Leukocytosis/Lactic acidosis - Merrem -Follow urine culture, ordered culture reflex - Follow blood cultures - Gentle IV fluid Diabetes Mellitus - Accu-Chek sliding scale insulin Alzheimer's disease Anxiety coronary atherosclerosis Dementia depressive disorder GERD Hypertensive disorder - Continue home medication DVT PPx Lovenox DNR LOS 2 days Discharge Plan: Residential Plan to discharge in: 48 Hours - Advance Directives Does patient have a Living Will: Yes Does patient have a Durable POA for Healthcare: Yes
[2024-10-31 12:14] LABS: PT Prothrombin Time 12.9 SECONDS (10-13.0); PTT, Activated Partial Thromb 30.4 SECONDS (27.2-37.4); Protime INR 1.14
[2024-10-31 13:08] VITALS: O2SAT 96
[2024-10-31] MEDS: Meropenem 1,000 MG in NA CHLORIDE 0.9% 100 ML IV SCH (13:41)
[2024-10-31] MEDS ORDERED: GLUCAGON 1 MG/VIAL IM PRN (15:59)
[2024-10-31] MEDS ORDERED: D10W 125 ML IV PRN (15:59)
[2024-10-31] MEDS: INSULIN REGULAR (HUMAN) 100 UNIT/ML SQ SCH (16:30)
[2024-11-01 03:06] LABS: Specific Gravity 1.006 (1.005-1.030); Sqamous Epithelial <5 /HPF (None Seen); Urine Bacteria <20 /HPF (<20); Urine Bilirubin NEGATIVE (Negative); Urine Blood Negative (Negative); Urine Clarity Turbid (Clear); Urine Color Colorless (Yellow); Urine Glucose NEGATIVE (Negative); Urine Ketones NEGATIVE (Negative); Urine Micro Reflex YN NO BILL MICROSCOPIC; Urine Mucus Slight /HPF (None Seen); Urine Nitrite NEGATIVE (Negative); Urine Protein NEGATIVE (Negative); Urine RBC <5 /HPF (None Seen); Urine Urobilinogen Normal (Normal); Urine WBC >50 /HPF (<5)
[2024-11-01] MEDS: HYDRALAZINE HCL 20 MG/ML VIAL IV PRN (08:35)
[2024-11-01] MEDS: ENOXAPARIN 40 MG/0.4 ML SQ SCH (08:41)
[2024-11-01 09:04] LABS: Absolute Basophils 0.1 K/uL (0-0.5); Absolute Eosinophils 0.2 K/uL (0-0.5); Absolute Lymphocytes (CBC) 1.3 K/uL (0.7-4.9); Absolute Monocytes 1.1 K/uL (0.1-1.3); Absolute Neutrophil 10.4 K/uL (1.8-8.0); Basophils % 0.6 % (0-1.3); Eosinophils % 1.7 % (0-4.4); Hematocrit 35.4 % (36.0-45.0); Hemoglobin 11.6 g/dL (12.0-15.0); Lymphocytes % 9.8 % (15.3-44.8); MCHC 32.9 g/dL (32.0-36.0); MPV 7.3 fL (7.6-11.3); Monocytes % 8.1 % (3.3-12.3); Neutrophils % 79.8 % (41.7-73.7); Platelets 383 thou/uL (152-406); RBC Red Blood Cell Count 4.31 M/uL (3.86-4.86); Red Cell Distribution Width 14.9 % (12.1-15.2)
[2024-11-01 09:17] LABS: Anion Gap 8.7 mEq/L (5.0-15.0); Magnesium 1.9 mg/dL (1.6-2.4); Phosphorus 2.7 mg/dL (2.5-4.9); Potassium 3.7 mEq/L (3.5-5.1)
[2024-11-01] MEDS: clonazePAM 0.5 MG TAB PO PRN (11:39)
--- NOTE | 2024-11-01 14:20 | P.PN ---
Date of Service: 11/01/24 Subjective awake and conversing today Daughter at the beside reports she is at baseline today awaiting urine culture to verify if ESBL is growing ROS 10 point ROS as noted above, otherwise negative Physical Exam General: AAO x2, NAD, afebrile HEENT: Atraumatic, Normocephalic Neck: 2+ carotid pulse no bruit Respiratory: Clear to auscultation bilaterally, Normal air movement Cardiovascular: Normal pulses, RRR, no murmur noted Capillary refill: <2 Seconds Gastrointestinal: Normal bowel sounds, Soft and benign on palpation Musculoskeletal: No clubbing Integumentary: No rashes Neurological: normal affect, normal speech Vitals Reviewed Problem list Acute metabolic encephalopathy secondary to urinary tract infection History of ESBL UTI Leukocytosis/Lactic acidosis Diabetes Mellitus Alzheimer's disease Anxiety coronary atherosclerosis Dementia depressive disorder GERD Hypertensive disorder Assessment and Plan Acute metabolic encephalopathy secondary to urinary tract infection History of ESBL UTI Leukocytosis-improved Lactic acidosis-cleared -Continue Merrem -Follow urine culture results pending -Follow blood cultures NGTD -IV fluid stopped Diabetes Mellitus -Accu-Chek sliding scale insulin Alzheimer's disease Anxiety coronary atherosclerosis Dementia depressive disorder GERD Hypertensive disorder -Continue home medication DVT PPx Lovenox DNR LOS 2 days Discharge Plan: Senior Care Plan to discharge in: 48 Hours
[2024-11-01] MEDS: ACETAMINOPHEN 325 MG TABLET PO PRN (21:25)
[2024-11-02 10:47] LABS: Absolute Basophils 0.1 K/uL (0-0.5); Absolute Eosinophils 0.1 K/uL (0-0.5); Absolute Lymphocytes (CBC) 1.1 K/uL (0.7-4.9); Absolute Monocytes 0.8 K/uL (0.1-1.3); Basophils % 0.5 % (0-1.3); Eosinophils % 0.5 % (0-4.4); Hemoglobin 11.2 g/dL (12.0-15.0); Lymphocytes % 8.2 % (15.3-44.8); MCV 82.4 fL (80-100); MPV 7.6 fL (7.6-11.3); Monocytes % 6.4 % (3.3-12.3); Neutrophils % 84.4 % (41.7-73.7); Platelets 378 thou/uL (152-406); RBC Red Blood Cell Count 4.01 M/uL (3.86-4.86); Red Cell Distribution Width 14.6 % (12.1-15.2)
[2024-11-02 11:12] LABS: Anion Gap 9.7 mEq/L (5.0-15.0); Phosphorus 3.3 mg/dL (2.5-4.9); Potassium 3.7 mEq/L (3.5-5.1)
[2024-11-02] MEDS ORDERED: LACTULOSE 20 GM/30 ML UCUP PO PRN (13:38)
[2024-11-02] MEDS ORDERED: ACETAMINOPHEN 325 MG TABLET PO PRN (13:38)
[2024-11-02] MEDS ORDERED: CLONAZEPAM 0.25 MG PO SCH (14:00)
[2024-11-02] MEDS: BACLOFEN 10 MG TAB PO SCH (14:00)
--- NOTE | 2024-11-02 15:42 | P.PN ---
Date of Service: 11/02/24 Subjective Dementia causing confusion Daughter at the bedside awaiting urine culture to verify if ESBL is growing ROS 10 point ROS as noted above, otherwise negative Physical Exam General: Alert, confused, NAD, afebrile HEENT: Atraumatic, Normocephalic Neck: 2+ carotid pulse no bruit Respiratory: Clear BBS, Normal air movement, on room air Cardiovascular: mild tachycardia, no murmur noted Capillary refill: <2 Seconds Gastrointestinal: Normal bowel sounds, Soft and benign on palpation Musculoskeletal: No clubbing Integumentary: No rashes Neurological: normal affect, normal speech Vitals Reviewed Problem list Acute metabolic encephalopathy secondary to urinary tract infection History of ESBL UTI Leukocytosis/Lactic acidosis Diabetes Mellitus Alzheimer's disease Anxiety coronary atherosclerosis Dementia depressive disorder GERD Hypertensive disorder Assessment and Plan Acute metabolic encephalopathy secondary to urinary tract infection History of ESBL UTI Leukocytosis-improved Lactic acidosis-cleared -Continue Merrem, started vancomycin for gram positive blood culture -Follow urine culture results pending -Follow blood cultures -one aerobic vial growing gram positive rods, will continue to follow -IV fluid stopped Diabetes Mellitus -Accu-Chek sliding scale insulin Alzheimer's disease Anxiety coronary atherosclerosis Dementia depressive disorder GERD Hypertensive disorder -Continue home medication DVT PPx Lovenox DNR LOS 2 days Discharge Plan: Half-Way Plan to discharge in: 48 Hours
[2024-11-02] MEDS: KETOROLAC OPTH SCH (17:00)
[2024-11-02] MEDS ORDERED: KETOROLAC LEFT EYE SCH (17:00)
[2024-11-02] MEDS: VANCOMYCIN 1.5 GM in NA CHLORIDE 0.9% 500 ML IVPB SCH ×2 (20:00→22:33)
[2024-11-02] MEDS ORDERED: HOME MED 1 EA UNK (Donepezil Hcl [Donepezil Hcl] 10 MG Tablet) PO SCH (21:00)
[2024-11-02] MEDS: MEMANTINE HCL 14 MG PO SCH (21:00)
[2024-11-02] MEDS: MELATONIN 5 MG TABLET PO SCH (21:00)
[2024-11-02] MEDS: clonazePAM 0.5 MG TAB PO SCH (22:17)
[2024-11-02] MEDS: DICYCLOMINE HCL 10 MG CAP PO SCH (22:20)
[2024-11-02] MEDS: DONEPEZIL HCL 5 MG TAB PO SCH (22:20)
[2024-11-03 05:01] LABS: Absolute Basophils 0.1 K/uL (0-0.5); Absolute Eosinophils 0.3 K/uL (0-0.5); Absolute Lymphocytes (CBC) 1.1 K/uL (0.7-4.9); Absolute Neutrophil 5.7 K/uL (1.8-8.0); Eosinophils % 3.5 % (0-4.4); Hematocrit 33.4 % (36.0-45.0); Hemoglobin 11.3 g/dL (12.0-15.0); Lymphocytes % 13.2 % (15.3-44.8); MCH 27.7 pg (27.0-35.0); MCHC 33.8 g/dL (32.0-36.0); MPV 7.5 fL (7.6-11.3); Neutrophils % 70.3 % (41.7-73.7); Platelets 381 thou/uL (152-406); RBC Red Blood Cell Count 4.07 M/uL (3.86-4.86); Red Cell Distribution Width 14.3 % (12.1-15.2)
[2024-11-03 05:21] LABS: Anion Gap 8.7 mEq/L (5.0-15.0); Magnesium 2.2 mg/dL (1.6-2.4); Phosphorus 3.2 mg/dL (2.5-4.9); Potassium 3.7 mEq/L (3.5-5.1)
[2024-11-03] MEDS ORDERED: HOME MED 1 EA UNK (Citalopram Hydrobromide [Celexa] 20 MG Tablet) PO SCH (09:00)
[2024-11-03] MEDS ORDERED: HOME MED 1 EA UNK (Omeprazole [Omeprazole] 20 MG Capsule.Dr) PO SCH (09:00)
[2024-11-03] MEDS: CLOPIDOGREL 75 MG TABLET PO SCH (09:19)
[2024-11-03] MEDS: PANTOPRAZOLE 40MG TABLET PO SCH (09:20)
[2024-11-03] MEDS: CITALOPRAM 10 MG TABLET PO SCH (09:20)
--- NOTE | 2024-11-03 12:19 | EKG ---
Test Date: 2024-10-31 Test Time: 07:56:25 Cardiac Care Unit Nurse: RIDDHI MEASUREMENT RESULTS: Intervals: Rate: 80 NV: 132 QRSD: 72 QT: 428 QTc: 493 [place]: P: 73 NV: 132 QRS: 69 T: 102 INTERPRETIVE STATEMENTS: Normal sinus rhythm Nonspecific ST abnormality Prolonged QT Abnormal ECG Compared to ECG 08/01/2024 06:41:50 ST (T wave) deviation now present Prolonged QT interval now present T-wave abnormality no longer present Electronically Signed On 11-03-24 12:10:36 CDT by Preston Parsons
[2024-11-03 12:39] VITALS: BP 118/58; TEMP 97.6
--- NOTE | 2024-11-03 12:50 | P.DS ---
Admission Date: 10/31/24 Discharge Date: 11/03/24 Disposition: TRANSFER TO [facility] Discharge Condition: GOOD Reason for Admission: Acute metabolic encephalopathy secondary to UTI Brief History of Present Illness: Libby Bosch is an 84-year-old female with a past medical history of Alzheimer's disease; Anxiety; coronary atherosclerosis; Dementia; depressive disorder; diabetes mellitus; GERD; Hypertensive disorder; metabolic en cephalopathy who presents to the ED with altered mental status. [facility] reports she is unresponsive this morning, unable to sit up straight, vital signs stable at that time. Family at the bedside reports she gets this way with urinary tract infections of which she has had a UTI in July growing ESBL. Hospital Course: Problem list Acute metabolic encephalopathy secondary to urinary tract infection History of ESBL UTI Leukocytosis/Lactic acidosis Diabetes Mellitus Alzheimer's disease Anxiety coronary atherosclerosis Dementia depressive disorder GERD Hypertensive disorder Patient was admitted to the hospital with leukocytosis, urinary tract infection. She has a history of MDR UTIs so she was managed in the hospital until urine culture returned. Urine culture returned with E. coli/non-ESBL. It was resistant to Bactrim but sensitive to Cipro/Levaquin. White blood cell count has improved significantly, was 15 on admission is down to 8.1 today she has been afebrile throughout hospitalization and is otherwise stable. She is stable for discharge back to assisted where she is a long-term resident. At discharge patient should continue her home medications as previously prescribed with the addition of the antibiotic Cipro Ciprofloxacin 5 mg by mouth twice daily for 7 days for E. coli UTI Vital Signs/Physical Exam: Temp Pulse Resp BP Pulse Ox 97.6 F 75 16 118/58 L 98 11/03/24 12:00 11/03/24 12:00 11/03/24 12:00 11/03/24 12:00 11/03/24 12:00 General: Alert, In no apparent distress, Oriented x1, Confused HEENT: Atraumatic, PERRLA Neck: Supple, JVD not distended Respiratory: Clear to auscultation bilaterally, Normal air movement Cardiovascular: Regular rate/rhythm, Normal S1 S2 Gastrointestinal: Normal bowel sounds, No tenderness Musculoskeletal: No tenderness Integumentary: No rashes Neurological: Normal speech, Normal affect Laboratory Data at Discharge: WBC 8.10 thou/uL (4.3-10.9) 11/03/24 04:18 Hgb 11.3 g/dL (12.0-15.0) L 11/03/24 04:18 Hct 33.4 % (36.0-45.0) L 11/03/24 04:18 Plt Count 381 thou/uL (152-406) 11/03/24 04:18 PT 12.9 SECONDS (10-13.0) 10/31/24 07:57 INR 1.14 10/31/24 07:57 APTT 30.4 SECONDS (27.2-37.4) 10/31/24 07:57 Sodium 137 mEq/L (136-145) 11/03/24 04:18 Potassium 3.7 mEq/L (3.5-5.1) 11/03/24 04:18 BUN 17 mg/dL (7-18) 11/03/24 04:18 Creatinine 0.73 mg/dL (0.55-1.02) 11/03/24 04:18 Glucose 152 mg/dL (74-106) H 11/03/24 04:18 Phosphorus 3.2 mg/dL (2.5-4.9) 11/03/24 04:18 Magnesium 2.2 mg/dL (1.6-2.4) 11/03/24 04:18 Total Bilirubin 0.4 mg/dL (0.2-1.0) 10/31/24 07:57 AST < 10 U/L (15-37) L 10/31/24 07:57 ALT 15 U/L (13-56) 10/31/24 07:57 Alkaline Phosphatase 144 U/L (45-117) H 10/31/24 07:57 Home Medications: Baclofen 10 mg PO TID 04/26/24 Citalopram Hydrobromide [Celexa] 20 mg PO DAILY 04/26/24 Clopidogrel Bisulfate [Plavix] 75 mg PO DAILY 04/26/24 Codeine/APAP [Tylenol #3*] 1 tab PO BEDTIME 04/26/24 Dicyclomine HCl 10 mg PO BID 04/26/24 Donepezil HCl 10 mg PO BEDTIME 04/26/24 Loperamide [Imodium*] 2 mg PO Q6HP PRN 04/26/24 Memantine HCl [Memantine HCl ER] 14 mg PO BEDTIME 04/26/24 Multivit-Min/Iron/Folic Acid/K [Multi-Day Plus Minerals Tablet] 1 each PO DAILY 04/26/24 Omeprazole 20 mg PO DAILY 04/26/24 clonazePAM [Clonazepam] 0.25 mg PO TID 04/26/24 Acetaminophen 325 mg PO Q6HR PRN 07/22/24 Ketorolac Opth [Acular 0.5% Opth Drops*] 1 drop LEFT EYE QID 07/22/24 Lactulose 30 ml PO Q6HR PRN 07/22/24 Lidocaine 4% Patch [Lidoderm 5% Patch*] 1 patch TP DIRECTED 07/22/24 Mag Hydrox/Al Hydrox/Simeth [Maalox Suspension] 30 ml PO Q6HR PRN 07/22/24 Melatonin 10 mg PO BEDTIME 07/22/24 Ciprofloxacin HCl 500 mg PO BID 7 Days #14 tab 11/03/24 New Medications: Ciprofloxacin HCl 500 mg PO BID 7 Days #14 tab Physician Discharge Instructions: Patient was admitted to the hospital with leukocytosis, urinary tract infection. She has a history of MDR UTIs so she was managed in the hospital until urine culture returned. Urine culture returned with E. coli/non-ESBL. It was resistant to Bactrim but sensitive to Cipro/Levaquin. White blood cell count has improved significantly, was 15 on admission is down to 8.1 today she has been afebrile throughout hospitalization and is otherwise stable. She is stable for discharge back to assisted where she is a long-term resident. At discharge patient should continue her home medications as previously prescribed with the addition of the antibiotic Cipro Ciprofloxacin 5 mg by mouth twice daily for 7 days for E. coli UTI Diet: ADA Activity: Bedrest Followup: Anam Booker MD [Primary Care Provider] - 1-2 Weeks Time spent managing pt's care (in minutes): 46
[2024-11-03] MEDS ORDERED: VANCOMYCIN 1 GM in NA CHLORIDE 0.9% 250 ML IVPB SCH (16:00)
== END 2024-11-03 15:41 | DRG 689 ==
LOC: ER 07:43 → ERHOLD 10:48 → 2ND 11:34
PROVIDERS: ADMIT Hospitalist; ATTEND Hospitalist
DX: N39.0 Urinary tract infection, site not specified (principal); G93.41 Metabolic encephalopathy; E87.20 Acidosis, unspecified; F02.84 Dementia in other diseases classified elsewhere, unspecified severity, with anxiety; F02.83 Dementia in other diseases classified elsewhere, unspecified severity, with mood disturbance; Z16.29 Resistance to other single specified antibiotic; G30.9 Alzheimer's disease, unspecified; I10 Essential (primary) hypertension; K21.9 Gastro-esophageal reflux disease without esophagitis; E11.9 Type 2 diabetes mellitus without complications; I25.10 Atherosclerotic heart disease of native coronary artery without angina pectoris; B96.20 Unspecified Escherichia coli [E. coli] as the cause of diseases classified elsewhere; Z88.5 Allergy status to narcotic agent; Z88.0 Allergy status to penicillin; Z11.52 Encounter for screening for COVID-19; Z79.52 Long term (current) use of systemic steroids; Z79.899 Other long term (current) drug therapy; Z79.02 Long term (current) use of antithrombotics/antiplatelets
CPT/HCPCS: 36415; 51702; 70450; 71045; 80048; 80076; 81001; 82947; 83605; 83735; 84100; 84484; 85025; 85610; 85730; 87040; 87077; 87086; 87088; 87186; 87205; 87428; 93005; 96365; 97161; 97530; 99285; J0360; J0696; J1650; J1815; J1885; J2185; J3370; J7030; J7040

== ENCOUNTER 2025-02-17 17:00 | Emergency (ER) | payer OTHER ==
[2025-02-17] MEDS ORDERED: ACETAMINOPHEN 500 MG TAB ONE (17:22)
--- NOTE | 2025-02-17 18:51 | RAD REPORT ---
EXAM: CT brain without contrast HISTORY: TRAUMA COMPARISON: None TECHNIQUE: Multiple contiguous axial images were obtained and a CT of the brain without contrast. Sag ittal and coronal reformats were performed. FINDINGS: No evidence of hydrocephalus, intracranial hemorrhage, or extra-axial fluid collection. Moderate brain atrophy with moderate periventricular and deep white matter chronic microvascular isc hemic changes present. The calvarium is intact. The visualized paranasal sinuses and mastoid air cells are essentially clear . IMPRESSION: No evidence of acute intracranial abnormality. Chronic findings as above. EXAM: CT of the cervical spine without contrast HISTORY: TRAUMA COMPARISON: None TECHNIQUE: Multiple contiguous axial images were obtained in a CT of the cervical spine without contr ast. Sagittal and coronal reformats were performed. FINDINGS: The vertebral bodies demonstrate normal height and alignment. No evidence of acute fracture or subluxation.. Moderate to advanced degenerative changes, most pronounced at C4-5, C5-6, and C6-7, with stable minimal degrees of spondylolisthesis, up to 3 mm anterolisthesis of C4 over C5. No prevertebral soft tissue swelling is seen. Advanced TMJ degenerative changes worse on the right. The posterior facets are well aligned. Normal alignment of the skull base with the cervical spine is seen. Dependent right upper lobe atelectasis, stable. IMPRESSION: No evidence of acute osseous abnormality of the cervical spine. Stable degenerative changes as above.
--- NOTE | 2025-02-17 18:55 | RAD REPORT ---
EXAMINATION: ONE VIEW CHEST XR CLINICAL INDICATION: Female, 85 years old.,dizziness TECHNIQUE: Frontal chest projection is submitted. Examination is limited by patient positioning and t echnique. COMPARISON: 02/25/2025 FINDINGS: The lungs are suboptimally inflated inflated. Hazy right mid lung opacity. Streaky opacities at the r ight apex may also be progressive since prior exam.. No pneumothorax or sizable effusion. The heart is normal in size. Mediastinal contours are unremarkable. IMPRESSION: Hazy right mid lung opacity. Streaky opacities at the right apex may also be progressive since prior exam. Findings concerning for pneumonia.
--- NOTE | 2025-02-17 18:56 | RAD REPORT ---
EXAMINATION: XR RIGHT SHOUDLER CLINICAL INDICATION: Female, 85 years old. PAIN RIGHT TECHNIQUE:Two view radiograph of the right shoulder were obtained. COMPARISON: No prior exam. FINDINGS: No acute bone or joint abnormality detected. Mild to moderate degenerative changes of the A C joint and mild degenerative changes of the glenohumeral joint. Surrounding soft tissues are unremarkable. IMPRESSION: No acute osseous abnormalities. Degenerative changes as above.
--- NOTE | 2025-02-17 19:10 | EDPHYS ---
Physician Documentation [facility] Name: Libby Bosch Age: 85 yrs Sex: Female : 1940 Arrival Date: 02/17/2025 Time: 17:00 Bed 18 Private MD: ED Physician Slava Mosqueda HPI: 02/17 19:41 This 85 yrs old Female presents to ER via EMS with complaints of Fall Injury, Neck sb4 Pain, <24hrs Old. 19:41 Patient presents from [facility] after a fall. snf states the fall was sb4 unwitnessed. Patient is unsure how it happened, thinks that she tripped. She is complaining of pain in her right shoulder to me, however she told EMS that her head and neck were hurting. She is unsure if she hit her head. She does have a history of Alzheimer's and is a poor historian. Daughter states that she was recently hospitalized at [facility] in the [facility] for a GI bleed, has been back at the [facility] for about 4 days now. Historical: - Allergies: 17:10 contrast media iodine; rg5 17:10 Morphine; rg5 17:10 PENICILLINS; rg5 - PMHx: 17:10 Alzheimer's disease; Anxiety; coronary atherosclerosis; Dementia; depressive disorder; rg5 diabetes mellitus; GERD; Hypertensive disorder; metabolic encephalopathy (Hypertensive disord); - Immunization history:: Adult Immunizations up to date. - Infectious Disease History:: Denies. - Social history:: Smoking status: unknown. ROS: 19:41 Constitutional: Negative for fever, chills, and weight loss, sb4 19:41 MS/extremity: Positive for injury or acute deformity, of the anterior aspect of right shoulder, 19:41 All other systems are negative, Exam: 19:41 Head/Face: Normocephalic, atraumatic. Eyes: Extra-ocular motions intact. Periorbital sb4 areas with no swelling, redness, or edema. ENT: Mucous membranes moist. Cardiovascular: Regular rate and rhythm with a normal S1 and S2. Respiratory: No increased work of breathing, no retractions or nasal flaring. Abdomen/GI: Soft, non-tender, no distension. Skin: Warm, dry with normal turgor. Normal color with no rashes, no lesions, and no evidence of cellulitis. MS/ Extremity: Pulses equal, no cyanosis. Neurovascular intact. Full, normal range of motion. 19:41 Constitutional: The patient appears in no acute distress, alert, awake, Vital Signs: 15:05 BP 172 / ???; Pulse 52; Resp 18; Temp 98.2; Pulse Ox 100% on R/A; Weight 53.98 kg; rg5 18:00 BP 162 / 55; Pulse 58; Resp 18; Pulse Ox 100% ; rg5 19:30 BP 139 / 60; Pulse 60; Resp 18; Pulse Ox 99% ; rg5 Alycia Coma Score: 17:10 Eye Response: spontaneous(4). Motor Response: obeys commands(6). Verbal Response: rg5 oriented(5). Total: 15. Trauma Score (Adult): 17:10 Eye Response: spontaneous(1); Verbal Response: oriented(1); Motor Response: obeys rg5 commands(2); Systolic BP: > 89 mm Hg(4); Respiratory Rate: 10 to 29 per min(4); Alycia Score: 15; Trauma Score: 12 MDM: 17:12 Medical Screening Exam initiated sb4 19:41 Differential diagnosis: abrasion, closed head injury, contusion, fracture, sprain, sb4 strain. Data reviewed: vital signs, nurses notes, EMS record, [facility] records, radiologic studies, CT scan, plain films, and as a result, I will discharge patient. Consideration of Admission/Observation Escalation of care including admission/observation considered. Test considered but Not performed: Labs: I initially ordered labs but daughter does not want to do these at this time as she was just released from the hospital. Historians other than the Patient: Daughter/Son: Daughter, medical power of trust and estates attorney. Care significantly affected by the following chronic conditions: Hypertension. Counseling: I had a detailed discussion with the patient and/or guardian regarding the historical points, exam findings, and any diagnostic results supporting the discharge/admit diagnosis, the presence of at least one elevated blood pressure reading (>120/80) during this emergency department visit, lab results, radiology results, to return to the emergency department if symptoms worsen or persist or if there are any questions or concerns that arise at home. Special discussion: Based on the patient's history, exam and DX evaluation, there is no indication for emergent intervention or inpatient TX. It is understood by the patient/guardian that if the SXs persist or worsen they need to return immediately for re-evaluation. I discussed with the patient/guardian in detail that at this point there is no indication for admission to the hospital. It is understood, however, that if the symptoms persist or worsen the patient needs to return immediately for re-evaluation. ED course: Patient's workup incidentally revealed a possible pneumonia in the right lung. She does have right shoulder plain, so that could be referred from her pneumonia. Given that she was recently admitted to [facility], we will treat as hospital-acquired pneumonia. She is not hypoxic nor in any respiratory distress, she is stable for discharge on oral antibiotics. Return precautions were given to patient's daughter and will be provided to the [facility] as well. Patient and daughter are in agreement with plan. 02/17 17:06 Order name: CT Head C Spine; Complete Time: 18:53 sb4 02/17 17:06 Order name: Chest Single View XRAY; Complete Time: 18:56 sb4 02/17 17:06 Order name: Shoulder Right (2 View) XRAY; Complete Time: 18:59 sb4 02/17 17:06 Order name: Cardiac monitoring; Complete Time: 17:29 sb4 02/17 17:06 Order name: O2 Per Protocol; Complete Time: 17:29 sb4 02/17 17:06 Order name: O2 Sat Monitoring; Complete Time: 17:29 sb4 02/17 17:11 Order name: Straight Cath - Urine; Complete Time: 17:43 sb4 Administered Medications: 17:43 Drug: Acetaminophen PO 1000 mg PO once Route: PO; rg5 18:25 Follow up: Response: No adverse reaction; Pain is decreased rg5 19:33 Drug: LevOfloxacin PO 500 mg PO once; crush and put in pudding Route: PO; rg5 20:10 Follow up: Response: No adverse reaction rg5 Disposition Summary: 02/17/25 19:10 Discharge Ordered Notes: Location: Home sb4 Problem: new sb4 Symptoms: have improved sb4 Condition: Stable sb4 Diagnosis - Fall on same level, unspecified sb4 - Pneumonia, unspecified organism sb4 Followup: sb4 - With: Emergency Department - When: As needed - Reason: Fever > 102 F, Trouble breathing, Worsening of condition Discharge Instructions: - Discharge Summary Sheet sb4 - Fall Prevention in the Home, Adult sb4 - Hospital-Acquired Pneumonia sb4 Forms: - Antibiotic Education sb4 - Patient Portal Instructions sb4 - Leadership Thank You Letter sb4 Prescriptions: - levofloxacin 250 mg/10 mL Oral solution - take 20 milliliters ORAL route once daily for 7 days; 140 milliliter; Refills: sb4 0, Product Selection Permitted Signatures: Dispatcher [employer] EDMS Nelly Bolden, PAPricilaC PAVirginia sb4 Carlo Hernandez, RN RN rg5 Corrections: (The following items were deleted from the chart) 17:07 17:07 BASIC METABOLIC PANEL+C.LAB.BRZ ordered. EDMS EDMS 17:07 17:07 CBC+H.LAB.BRZ ordered. EDMS EDMS 17:07 17:07 HEPATIC FUNCTION+C.LAB.BRZ ordered. EDMS EDMS 17:07 17:07 MAGNESIUM+C.LAB.BRZ ordered. EDMS EDMS 17:07 17:07 PROTIME (+INR)+COAG.LAB.BRZ ordered. EDMS EDMS 17:07 17:07 PTT, ACTIVATED+COAG.LAB.BRZ ordered. EDMS EDMS 17:07 17:07 Troponin High Sensitivity+C.LAB.BRZ ordered. EDMS EDMS 17:07 17:07 Head C Spine MPR Wo Con+CT.RAD.BRZ ordered. EDMS EDMS 17:07 17:07 Chest Single View+RAD.RAD.BRZ ordered. EDMS EDMS 17:07 17:07 Shoulder Right 2 View+RAD.RAD.BRZ ordered. EDMS EDMS 19:24 17:06 EKG - Nurse/Tech ordered. sb4 rg5 19:24 17:06 IV Saline Lock ordered. sb4 rg5 19:24 17:06 Labs collected and sent ordered. sb4 rg5
--- NOTE | 2025-02-17 19:10 | ER ---
Nurse's Notes [facility] Name: Libby Bosch Age: 85 yrs Sex: Female : 1940 Arrival Date: 02/17/2025 Time: 17:00 Bed 18 Private MD: Diagnosis: Fall on same level, unspecified;Pneumonia, unspecified organism Presentation: 02/17 15:05 Chief complaint: EMS states: unwitnessed fall from bed 1 hr [employer]STRU[employer], no LOC \T\ complaint of rg5 pain in the neck. 15:05 Coronavirus screen: Client denies travel out of the [place] in the last 14 days. Ebola rg5 Screen: Patient negative for fever greater than or equal to 101.5 degrees Fahrenheit, and additional compatible Ebola Virus Disease symptoms Patient denies exposure to infectious person. Patient denies travel to an Ebola-affected area in the 21 days before illness onset. Initial Sepsis Screen: Does the patient meet any 2 criteria? No. Patient's initial sepsis screen is negative. Does the patient have a suspected source of infection? No. Patient's initial sepsis screen is negative. Risk Assessment: Do you want to hurt yourself or someone else? Patient reports no desire to harm self or others. Onset of symptoms was February 17, 2025. Care prior to arrival: Glucose check: 284. Activity prior to arrival: fall. Mechanism of Injury: Fall out of bed. 15:05 Method Of Arrival: EMS: [facility] rg5 15:05 Acuity: JENNIFER 3 rg5 Triage Assessment: 17:10 General: Appears in no apparent distress. comfortable, Behavior is calm, cooperative, rg5 appropriate for age. Pain: Complains of pain in neck Quality of pain is described as aching. EENT: No signs and/or symptoms were reported regarding the EENT system. Neuro: Level of Consciousness is awake, alert, obeys commands, Oriented to person. Cardiovascular: Denies chest pain, Patient's skin is warm and dry. Respiratory: Airway is patent Trachea midline Respiratory effort is even, unlabored, Respiratory pattern is regular, symmetrical. GI: Abdomen is round non-distended. : No signs and/or symptoms were reported regarding the genitourinary system. Derm: Skin is fragile, Skin is dry, Skin is normal. Musculoskeletal: Circulation, motion, and sensation intact. Range of motion: intact in all extremities. Historical: - Allergies: 17:10 contrast media iodine; rg5 17:10 Morphine; rg5 17:10 PENICILLINS; rg5 - PMHx: 17:10 Alzheimer's disease; Anxiety; coronary atherosclerosis; Dementia; depressive disorder; rg5 diabetes mellitus; GERD; Hypertensive disorder; metabolic encephalopathy (Hypertensive disord); - Immunization history:: Adult Immunizations up to date. - Infectious Disease History:: Denies. - Social history:: Smoking status: unknown. Screenin:16 [facility] ED Fall Risk Assessment (Adult) History of falling in the last 3 months, rg5 including since admission Yes- single mechanical fall (1 pt) Confusion or Disorientation Yes (5 pts) Intoxicated or Sedated No (0 pts) Impaired Gait Yes (1 pt) Mobility Assist Device Used Yes (1 pt) Altered Elimination Yes (1 pt) Score/Fall Risk Level 3 or more points = High Risk Oriented to surroundings, Maintained a safe environment, Provided non-skid footwear, Hourly rounding (assess needs \T\ fall precautionary measures) done, Used ambulatory aids as needed (educated on \T\ assisted with). Abuse screen: Denies injuries from another. Nutritional screening: No deficits noted. Tuberculosis screening: No symptoms or risk factors identified. Primary Survey: 17:10 NO uncontrolled hemorrhage observed. rg5 17:10 A: The client is awake and alert. The airway is patent. Breathing/Chest: Spontaneous rg5 respiratory effort, equal unlabored respirations, breath sounds clear bilaterally, regular pattern, symmetrical chest rise and fall. Circulation: No external hemorrhage present. Regular and strong central pulse, skin warm/dry/normal color. Disability Pupils are equal, round, reactive to light and accommodation. Client is alert. Exposure/Environment: All clothing and personal items were removed. Forensic evidence collection is not deemed to be indicated at this time. Items placed in patient belonging bag. There is no evidence of uncontrolled external bleeding. No obvious injuries are noted at this time. A warming method has been applied: A warm blanket has been provided to the patient. 18:30 Reassessment Alertness and Airway: Awake and alert. The airway is patent. Breathing: rg5 Spontaneous respiratory effort, equal unlabored respirations, breath sounds clear bilaterally, regular pattern with symmetrical chest rise and fall. Circulation: No external hemorrhage noted. Regular and strong central pulse, skin warm/dry/normal color. Disability: Pupils Pupils are equal, round, reactive to light and accomodation. Alert. Assessment: 17:16 General: Appears in no apparent distress. comfortable, Behavior is calm. rg5 Vital Signs: 15:05 BP 172 / ???; Pulse 52; Resp 18; Temp 98.2; Pulse Ox 100% on R/A; Weight 53.98 kg; rg5 18:00 BP 162 / 55; Pulse 58; Resp 18; Pulse Ox 100% ; rg5 19:30 BP 139 / 60; Pulse 60; Resp 18; Pulse Ox 99% ; rg5 Alycia Coma Score: 17:10 Eye Response: spontaneous(4). Motor Response: obeys commands(6). Verbal Response: rg5 oriented(5). Total: 15. Trauma Score (Adult): 17:10 Eye Response: spontaneous(1); Verbal Response: oriented(1); Motor Response: obeys rg5 commands(2); Systolic BP: > 89 mm Hg(4); Respiratory Rate: 10 to 29 per min(4); Alycia Score: 15; Trauma Score: 12 ED Course: 17:05 Patient arrived in ED. sb4 17:05 Nelly Bolden PA-C is PHCP. sb4 17:05 Slava Mosqueda MD is Attending Physician. sb4 17:06 Carlo Hernandez, RN is Primary Nurse. rg5 17:10 Arm band placed on. rg5 17:10 Patient maintains SpO2 saturation greater than 95% on room air. rg5 17:14 Triage completed. rg5 17:16 Patient has correct armband on for positive identification. Bed in low position. Door rg5 closed. Noise minimized. 17:16 No provider procedures requiring assistance completed. rg5 17:49 CT Head C Spine In Process Unspecified. EDMS 18:00 Chest Single View XRAY In Process Unspecified. EDMS 18:00 Shoulder Right (2 View) XRAY In Process Unspecified. EDMS Administered Medications: 17:43 Drug: Acetaminophen PO 1000 mg PO once Route: PO; rg5 18:25 Follow up: Response: No adverse reaction; Pain is decreased rg5 19:33 Drug: LevOfloxacin PO 500 mg PO once; crush and put in pudding Route: PO; rg5 20:10 Follow up: Response: No adverse reaction rg5 Medication: 17:16 VIS not applicable for this client. rg5 Intake: 17:10 PO: 0ml; Total: 0ml. rg5 Outcome: 19:10 Discharge ordered by MD. vanegas 21:13 Patient left the ED. rg5 Signatures: Dispatcher [employer] Nelly Flores PA-C PA-C sb4 Gallardo, Rommel, RN RN rg5
[2025-02-17] MEDS ORDERED: levoFLOXacin 250 MG TAB ONE (19:28)
[2025-02-17 22:48] VITALS: BP 139/60; O2SAT 99
== END 2025-02-17 21:13 | disposition home or self-care (01) ==
LOC: ER 17:00
DX: M54.2 Cervicalgia (principal); R51.9 Headache, unspecified; M25.511 Pain in right shoulder; W18.30XA Fall on same level, unspecified, initial encounter; Y92.129 Unspecified place in nursing home as the place of occurrence of the external cause; J18.9 Pneumonia, unspecified organism; G30.9 Alzheimer's disease, unspecified; F02.80 Dementia in other diseases classified elsewhere, unspecified severity, without behavioral disturbance, psychotic disturbance, mood disturbance, and anxiety; E11.9 Type 2 diabetes mellitus without complications; I10 Essential (primary) hypertension; Z88.0 Allergy status to penicillin; Z88.5 Allergy status to narcotic agent; Z91.041 Radiographic dye allergy status
CPT/HCPCS: 70450; 71045; 72125; 99283